=== PATIENT | female | born 1985 | race Caucasian/White ===

== ENCOUNTER 2019-10-12 17:52 | Emergency (ER) | payer BC, SELFPAY ==
[2019-10-12 18:02] VITALS: BP 148/95; PULSE 88; RESP 17; TEMP 36.8; O2SAT 98; BMI 35.6
--- NOTE | 2019-10-12 18:07 | ED_ITS ---
HPI - Headache General: Chief Complaint: Headache Stated Complaint: lamb Time Seen by Provider: 10/12/19 18:00 History of Present Illness: HPI Narrative: Patient is a 34-year-old female who comes to the ED with a headache. Patient has a past medical history of migraine but states that this headache is not like her typical migraine. Severe headache started this morning when she woke up. She describes it as retro-orbital of the right eye and involves the whole right side of her head. She described the pain is like an intense pressure building up on the right side of her head. She rates this headache a 10 out of 10. She took Motrin today and it did not provide any relief. She also tried sleeping today and applying ice pack on the right side of her head and both have not helped the headache. She denies any photophobia, nausea, vomiting, head trauma, numbness/tingling to extremities, weakness to extremities or any other neurological symptoms. MD elicited complaint: headache Associated symptoms: Deny chest pain, fever(s), nausea, photophobia, rash or vomiting Review of Systems Const: Denies: fever, chills or fatigue Eyes: Denies: change in vision or eye discomfort ENMT: Denies: throat pain, painful swallowing, nasal discharge or nasal congestion Card: Denies: chest pain, palpitations, edema, swelling of feet/ankles, shortness of breath on exertion or shortness of breath when lying down Resp: Denies: shortness of breath, productive cough or non-productive cough GI: Denies: abdominal pain, nausea, vomiting, diarrhea, constipation or blood in stool : Denies: flank pain, painful urination or blood in urine Musc: Denies: neck pain, back pain or extremity swelling Skin/Breast: Denies: rash or new lesion Neuro: Reports: headache; Denies: numbness in extremities or weakness in extremities PFS ED PFSH: Social History Smoking and tobacco status: current every day smoker Physical Exam Const: COMMON NORMALS: oriented x3 and alert GENERAL APPEARANCE: cooperative and ill appearing (pt was crying and appeared to be in discomfort due to headache) HENMT: COMMON NORMALS: normocephalic HEAD & SCALP: normocephalic MOUTH: oral and palatal mucosa normal THROAT: posterior oropharynx normal and uvula midline Eye: COMMON NORMALS: PERRL, EOMs intact bilaterally and normal visual garland by confrontation PUPIL: Yes PERRL DIRECT OPHTHALMOSCOPY: No photophobia Neck/C-Spine: COMMON NORMALS: supple GENERAL: Yes normal visual inspection Resp: COMMON NORMALS: normal respiratory effort, no retractions, no use of accessory muscles and clear to auscultation bilaterally EFFORT & INSPECTION: Yes able to speak in complete sentences and No respiratory distress AUSCULTATION: clear to auscultation bilaterally Cardio: COMMON NORMALS: regular rate, regular rhythm, S1 normal heart sound, S2 normal heart sound, no gallops, no clicks, no murmurs and peripheral pulses 2+ throughout RATE: regular rate RHYTHM: regular rhythm HEART SOUNDS: S1 normal and S2 normal PERIPHERAL PULSES: pulses 2+ throughout GI: COMMON NORMALS: normal to inspection, nondistended, normoactive bowel sounds, soft to palpation, non-tender and no masses PALPATION: Yes soft : COMMON NORMALS: Yes no CVA tenderness BLADDER/KIDNEY EXAM: Yes no CVA tenderness Back/Pelvis: COMMON NORMALS: no CVA tenderness Extremity: COMMON NORMALS: normal to inspection, normal capillary refill and no pedal edema Neuro: COMMON NORMALS: oriented x3, CN's II-XII intact bilaterally, moves all extremities, no focal motor deficits and no sensory deficits noted SENSORIUM/ORIENTATION: Yes alert SENSORY EXAM: Yes extremities (intact) MOTOR EXAM: strength 5/5 throughout Skin: COMMON NORMALS: no rashes or lesions noted GENERAL SKIN EXAM: no rashes or lesions noted and dry skin Course Reevaluation(s): Reevaluation #1: After the Toradol patient's headache is rated at a 1 out of 10. Time: 20:03 Vital Signs: Vital signs: Vital Signs Temperature 98.3 F 10/12/19 18:02 Pulse Rate 84 10/12/19 20:28 Respiratory Rate 16 10/12/19 20:28 Blood Pressure 124/83 10/12/19 20:28 Pulse Oximetry 95 10/12/19 20:28 MDM - Headache MDM Narrative: Medical decision making narrative: Patient is a 34-year-old female comes to the ED with a headache. Physical exam and neurological exam were all normal. Head CT was normal and showed no acute intracranial abnormalities. While here in the ED patient was given IV fluids, Benadryl, Reglan, Decadron and sumatriptan SQ. Patient still was not feeling better after sumatriptan dose. Patient was then given an IV dose of Toradol and her headache improved significantly and she was ready for discharge. Patient told to follow- up with PCP in 7 days for reevaluation. I told her to take Tylenol or ibuprofen for any future headaches. Patient understood and agreed with plan. Imaging Data^: CT Head: Attestation: I personally reviewed and interpreted this imaging study as follows: Radiologist's impression: [address] [place] [address] CT Scan Report Signed Patient: Trupti Terrazas Unit #: [id number] : 1985 Age/Sex: 34 / F ADM Date: 10/12/19 Loc: ER Room/Bed: Attending Dr: Ordering Provider/Ordering MD: Julian Haas Date of Service: 10/12/19 Procedure(s): CT head wo con* [id number] Accession Number(s): [id number] Report Number: [id number] PROCEDURE INFORMATION: Exam: CT Head Without Contrast Exam date and time: 10/12/2019 6:19 PM Age: 34 years old Clinical indication: Pain; Headache; Migraine; Additional info: Migraine for over 72 hours and no history of migraines TECHNIQUE: Imaging protocol: Computed tomography of the head without contrast. Total DLP: 783.04 mGy-cm Radiation optimization: All CT scans at this facility use at least one of these dose optimization techniques: automated exposure control; mA and/or kV adjustment per patient size (includes targeted exams where dose is matched to clinical indication); or iterative reconstruction. COMPARISON: No relevant prior studies available. FINDINGS: Brain: Normal. No hemorrhage. Unremarkable white matter. No mass effect. Ventricles: Normal. No ventriculomegaly. Bones/joints: Unremarkable. No acute fracture. Sinuses: Visualized sinuses are unremarkable. No fluid levels. Mastoid air cells: Visualized mastoid air cells are well aerated. Soft tissues: Unremarkable. CT/CT head wo con* [id number] IMPRESSION: No acute intracranial abnormality. Radiation Dose CTDIVOL = (mGy): DLP = 783.04 (mGy-cm) Dictated By: Gary Roman MD Signed By: Gary Roman MD Signed Date/Time: 10/12/191838 DD/ 36 Discharge Plan Discharge Patient Disposition: Home, Self-Care Clinical Impression: Headache Qualifiers: Headache type: unspecified Headache chronicity pattern: acute headache Intractability: not intractable Qualified Code(s): R51 - Headache Condition: Stable Prescriptions: No Action furosemide 40 mg tablet 40 mg PO DAILY RF: 0 clopidogrel 75 mg tablet 75 mg PO DAILY RF: 0 aspirin 81 mg Tablet,Delayed Release (Dr/Ec) 81 mg PO DAILY RF: 0 carvedilol 3.125 mg tablet 3.125 mg PO BID RF: 0 pantoprazole 40 mg tablet,delayed release (DR/EC) 40 mg PO DAILY RF: 0 metformin 500 mg tablet extended release 24 hr 500 mg PO DAILY RF: 0 rosuvastatin 20 mg tablet 220 mg PO DAILY RF: 0 Discharge Orders: Discharge Order (Routine); Ordered 10/12/19 Ordered By: Julian Haas Referrals: Rand Schreiber FNP [Primary Care Provider] - Discharge Diet: Regular Discharge Activity: Resume usual activity Patient Instructions: Acute Headache (ED) Activity Restrictions/Additional Instructions: Follow-up with your PCP in 7 to 10 days for reevaluation. Go home and rest. Take Tylenol or ibuprofen for any future headaches. You can return to the ED if you are having any acute migraines or if you start having any headaches with neurological symptoms. Discharge Date/Time: 10/12/19 20:30 Coding Level of Care Code ED [employer]wste[employer] Exam Comprehensive
[2019-10-12 18:09] VITALS: BP 148/95; PULSE 79; RESP 18; O2SAT 97
[2019-10-12] MEDS: sodium chloride 0.9% 1,000 ML 999 ML IV (18:36)
[2019-10-12] MEDS: SUMAtriptan 6 mg/0.5 mL SDV SUBCUT (18:37)
[2019-10-12] MEDS: metoclopramide 5 mg/mL SDV 2 mL 10 MG IVP (18:38)
[2019-10-12] MEDS: diphenhydrAMINE 50 mg/mL SDV 1mL 25 MG IVP (18:38)
[2019-10-12] MEDS: dexamethasone 10 mg/mL INJ IVP (18:38)
[2019-10-12] MEDS: ketorolac 30 mg/mL INJ IVP (19:50)
[2019-10-12 20:28] VITALS: BP 124/83; PULSE 84; RESP 16; O2SAT 95
== END 2019-10-12 20:30 | disposition home or self-care (01) ==
PROVIDERS: Emergency Provider Physician Assistant; Family Provider Nurse Practitioner; PCP Nurse Practitioner
DX: R51 Headache (principal); Z79.82 Long term (current) use of aspirin; Z79.84 Long term (current) use of oral hypoglycemic drugs; Z79.02 Long term (current) use of antithrombotics/antiplatelets; F17.210 Nicotine dependence, cigarettes, uncomplicated
CPT/HCPCS: 12345; 70450; 96361; 96372; 96374; 96375; 99283; 99284; J1100; J1200; J1885; J2765; J3030; J7030

== ENCOUNTER 2020-11-11 07:13 | Emergency (ER) | payer BC, SELFPAY ==
[2020-11-11 07:23] VITALS: TEMP 36.9; BMI 36.6
--- NOTE | 2020-11-11 07:28 | USR_ITS ---
NOTE: Report was unsigned for reason: Order was edited. Original Signature date and time was: 11/11/20 @ 0900 PROCEDURE INFORMATION: Exam: US Nonobstetric Pelvis; Complete Exam date and time: 11/11/2020 7:49 AM Age: 35 years old Clinical indication: Pelvic pain TECHNIQUE: Imaging protocol: Transabdominal pelvic nonobstetric ultrasound. Complete exam. Real time ultrasound with image documentation. COMPARISON: No relevant prior studies available. FINDINGS: Uterus/cervix: Uterus is normal. The uterus measures 5.8 x 2.7 x 3.7 cm. Endometrial stripe measures 9 mm in thickness. There are a few tiny endometrial cysts consistent with mild cystic hyperplasia. No uterine masses. Right adnexa: Ovary is normal. No mass. Normal blood flow. Left adnexa: Ovary is normal. No mass. Normal blood flow. Intraperitoneal space: No intraperitoneal fluid. Urinary bladder: Normal. [facility] US/US transvaginal [id number] IMPRESSION: No acute findings.
--- NOTE | 2020-11-11 07:29 | W.ED.ABDPA2 ---
HPI - Abdominal Pain General: Chief Complaint: Abdominal Pain Stated Complaint: left flank pain (sharp); nausea Time Seen by Provider: 11/11/20 07:18 Source: patient and old records reviewed History of Present Illness: HPI narrative: This patient is a 35-year-old female who presents to the emergency department has a history of polycystic ovarian disease complain of significant left lower quadrant abdominal pain that has been increasing over the past couple of days so much so that now she can hardly stand up straight and significant pain patient is tearful in the bed. Patient states she never had anything like this before. Patient states she is a history of irregular periods and has went over a year without a period in the past. Patient states she is sexually active. Will do medical evaluation treat as needed. Patient denies nausea vomiting diarrhea. Denies history of kidney stones. MD elicited complaint: abdominal pain Pertinent past history: other Onset (ago): day(s) Pain Consistency: constant Location: LLQ Severity: moderate Associated Symptoms: Denies chills, dysuria, fever(s), nausea and vomiting Review of Systems General: Reports: 10 or more systems reviewed and unremarkable except in HPI and below Const: Denies: fever(s), chills, body aches or fatigue Eyes: Denies: change in vision or blurry vision ENMT: Denies: throat pain, hoarseness or mouth pain Card: Denies: chest pain, palpitations, irregular heart rhythm, edema, swelling of feet/ankles or lightheadedness Resp: Denies: dyspnea, productive cough, non-productive cough, wheezing or pain on inspiration GI: Reports: abdominal pain; Denies: nausea or vomiting : Denies: difficulty voiding, dysuria, urinary frequency, urinary urgency or urinary hesitancy Musc: Denies: neck pain, back pain, extremity pain, extremity swelling, joint pain, joint swelling, joint redness, joint warmth or limited range of motion Skin/Breast: Denies: rash, pruritus, erythema or skin tenderness Neuro: Denies: headache(s), numbness in extremities or weakness in extremities Psych: Denies: anxiety or depression PFS ED PFSH: Social History Smoking and tobacco status: current every day smoker Physical Exam Const: COMMON NORMALS: no acute distress, average body habitus, patient oriented x3, no limitations, healthy appearing, alert and well nourished HENMT: COMMON NORMALS: normocephalic, atraumatic, external ears normal, EAC's normal, TM's normal bilaterally, Normal external nose present and Normal nasal mucous membranes and turbinates present HEAD & SCALP: normocephalic and atraumatic NOSE: Normal external nose present and Normal nasal mucous membranes and turbinates present EXTERNAL EAR: Yes external ears normal EXTERNAL AUDITORY CANAL: EAC's normal TYMPANIC MEMBRANE: TM's normal bilaterally Neck/C-Spine: COMMON NORMALS: full ROM, no lymphadenopathy, supple, no meningeal signs, no JVD, Thyroid normal and No carotid bruits THYROID: Thyroid normal Chest: COMMONS NORMALS: normal inspection of the chest, normal palpation of entire chest wall, normal inspection of the breasts and normal palpation of the breasts Breast/axilla inspection: Yes normal inspection of the breasts BREAST/AXILLA PALPATION: Yes normal palpation of the breasts Resp: COMMON NORMALS: normal respiratory effort, No retractions, No use of accessory muscles, clear to auscultation bilaterally and percussion normal AUSCULTATION: clear to auscultation bilaterally PERCUSSION: percussion normal Cardio: COMMON NORMALS: no JVD, regular rate, regular rhythm, S1 normal heart sound present, S2 normal heart sound present, No gallops present (Cardio), No clicks present (Cardio), No murmurs present (Cardio), No rub (Cardio) and Peripheral pulses 2+ throughout RATE: regular rate RHYTHM: regular rhythm HEART SOUNDS: S1 normal heart sound present and S2 normal heart sound present PERIPHERAL PULSES: Peripheral pulses 2+ throughout GI: COMMON NORMALS: Normal to inspection, nondistended, normoactive bowel sounds present, Soft to palpation, No hepatosplenomegaly present, no masses and no bruits PALPATION: Yes Soft to palpation, Yes Tenderness to palpation present (GI), Yes Guarding due to palpation present (GI) and Yes No hepatosplenomegaly present : COMMON NORMALS: Yes no CVA tenderness, Yes normal external appearance, Yes normal appearance of the vagina, Yes normal appearance of the cervix, Yes normal bimanual exam, Yes No adnexal tenderness and Yes no masses BLADDER/KIDNEY EXAM: Yes no CVA tenderness BIMANUAL EXAM - VAGINA & UTERUS: Yes normal bimanual exam Back/Pelvis: COMMON NORMALS: no CVA tenderness, thoracic and lumbar spine normal to inspection, no thoracic nor lumbar tenderness, thoraco-lumbar ROM normal and straight leg raise negative bilaterally Extremity: COMMON NORMALS: normal to inspection, full ROM, capillary refill normal, no joint enlargement, no clubbing, cyanosis or edema, no calf tenderness and no pedal edema Neuro: COMMON NORMALS: patient oriented x3 SENSORIUM/ORIENTATION: Yes alert MENINGEAL SIGNS: Yes no meningeal signs Course Reevaluation(s): Reevaluation #1: Negative evaluation in the emergency room for any acute findings. However patient does complain of continued hip pain. Patient has had a CT scan and ultrasound that is negative for any acute findings. Negative laboratory evaluations. Patient given the following instructions Alternate heat and ice. Take pain medications as instructed. Follow-up with your primary care physician or orthopedics as needed in 2 to 5 days if not improved. You may need further imaging via MRI of the left hip joint if pain continues. Time: 09:43 Vital Signs: Vital signs: Vital Signs Temperature 98.4 F 11/11/20 07:23 Pulse Rate 78 11/11/20 08:55 Respiratory Rate 18 11/11/20 08:55 Blood Pressure 161/108 11/11/20 08:55 Pulse Oximetry 99 11/11/20 08:55 MDM - Abdominal Pain MDM Narrative: Medical decision making narrative: This patient is a 35-year-old female who presents to the emergency department has a history of polycystic ovarian disease complain of significant left lower quadrant abdominal pain that has been increasing over the past couple of days so much so that now she can hardly stand up straight and significant pain patient is tearful in the bed. Patient states she never had anything like this before. Patient states she is a history of irregular periods and has went over a year without a period in the past. Patient states she is sexually active. Will do medical evaluation treat as needed. Patient denies nausea vomiting diarrhea. Denies history of kidney stones. IMPRESSION: 1. Nonobstructive left nephrolithiasis. Negative evaluation otherwise in the emergency department. No findings to his explain the patient's complaints of pain. Patient has movement of the left hip joint when she comes to the midline but no movement laterally or up or down. Peers to be musculoskeletal pain. Patient will alternate with heat and ice will be given pain medication to help as instructed to follow-up with her primary care physician. Differential Diagnosis: Differential diagnosis abdominal pain: Likely abdominal pain, acute appendicitis, calculus of kidney and endometriosis Medical Records: Attestation: I reviewed the patient's medical records. Lab Data: Attestation: I reviewed the patient's lab results. Labs: Lab Results 11/11/20 11/11/20 11/11/20 Range/Units 07:21 07:21 07:48 WBC 8.9 (4.0-10.0) 10^3/ uL RBC 5.50 H (4.1-5.3) 10^6/u L Hgb 16.2 H (11.5-15.3) g/dL Hct 48.3 H (37.0-47.0) % MCV 87.8 (81-99) fL MCH 29.5 (28.0-34.0) pg MCHC 33.5 (30.0-36.0) g/dL RDW 13.9 (12.1-15.1) % Plt Count 563 H (130-400) 10^3/c mm MPV 10.5 H (7.4-10.4) fL Neut % (Auto) 69.1 % Lymph % (Auto) 20.3 % [place] % (Auto) 6.1 % Eos % (Auto) 3.2 % Baso % (Auto) 1.0 % Neut # (Auto) 6.12 (1.8-7.7) 10^3/u L Lymph # (Auto) 1.8 (0.8-4.8) 10^3/u L [place] # (Auto) 0.5 (0.2-0.9) 10^3/u L Eos # (Auto) 0.3 (0.0-0.8) 10^3/u L Baso # (Auto) 0.1 (0.0-0.1) 10^3/u L Nucleated RBC % (a uto) 0 % Nucleated RBCs # 0.0 /100WBC Sodium (136-145) mmol/L Potassium (3.5-5.1) mmol/L Chloride (98-107) mmol/L Carbon Dioxide (22-29) mmol/L Anion Gap (5-19) BUN (6-20) mg/dL Creatinine (0.5-0.9) mg/dL GFR Calculation (90-130) mL/min Glucose (65-115) mg/dL Calculated Osmolal ity (285-295) mOsm/k g Calcium (8.5-10.5) mg/dL Total Bilirubin (0.15-1.2) mg/dL AST (0-32) U/L ALT (0-33) U/L Alkaline Phosphata se (35-105) IU/L Total Protein (6.6-8.7) g/dL Albumin (3.5-5.2) g/dL Globulin (1.3-4.6) g/dL HCG, Qual Negative (Negative) Urine Color Yellow (Yellow) Urine Appearance Clear (CLEAR) Urine pH 5 (5-7) Ur Specific Gravit y 1.020 (1.005-1.030) Urine Protein Neg (Negative) Urine Glucose (UA) Norm (Normal) Urine Ketones Negative (Negative) Urine Blood Neg (Negative) Urine Nitrate Negative (Negative) Urine Bilirubin Neg (Negative) Urine Urobilinogen Norm (Negative) mg/dL Ur Leukocyte Anupama ase Negative (Negative) 11/11/20 Range/Units 07:48 WBC (4.0-10.0) 10^3/ uL RBC (4.1-5.3) 10^6/u L Hgb (11.5-15.3) g/dL Hct (37.0-47.0) % MCV (81-99) fL MCH (28.0-34.0) pg MCHC (30.0-36.0) g/dL RDW (12.1-15.1) % Plt Count (130-400) 10^3/c mm MPV (7.4-10.4) fL Neut % (Auto) % Lymph % (Auto) % [place] % (Auto) % Eos % (Auto) % Baso % (Auto) % Neut # (Auto) (1.8-7.7) 10^3/u L Lymph # (Auto) (0.8-4.8) 10^3/u L [place] # (Auto) (0.2-0.9) 10^3/u L Eos # (Auto) (0.0-0.8) 10^3/u L Baso # (Auto) (0.0-0.1) 10^3/u L Nucleated RBC % (a uto) % Nucleated RBCs # /100WBC Sodium 137 (136-145) mmol/L Potassium 4.2 (3.5-5.1) mmol/L Chloride 103 (98-107) mmol/L Carbon Dioxide 23 (22-29) mmol/L Anion Gap 15.2 (5-19) BUN 9 (6-20) mg/dL Creatinine 0.8 (0.5-0.9) mg/dL GFR Calculation 82.1 L (90-130) mL/min Glucose 104 (65-115) mg/dL Calculated Osmolal ity 283 L (285-295) mOsm/k g Calcium 8.7 (8.5-10.5) mg/dL Total Bilirubin 0.3 (0.15-1.2) mg/dL AST 33 H (0-32) U/L ALT 47 H (0-33) U/L Alkaline Phosphata se 120 H (35-105) IU/L Total Protein 6.9 (6.6-8.7) g/dL Albumin 4.4 (3.5-5.2) g/dL Globulin 2.5 (1.3-4.6) g/dL HCG, Qual (Negative) Urine Color (Yellow) Urine Appearance (CLEAR) Urine pH (5-7) Ur Specific Gravit y (1.005-1.030) Urine Protein (Negative) Urine Glucose (UA) (Normal) Urine Ketones (Negative) Urine Blood (Negative) Urine Nitrate (Negative) Urine Bilirubin (Negative) Urine Urobilinogen (Negative) mg/dL Ur Leukocyte Anupama ase (Negative) Imaging Data ^: US: Attestation: I personally reviewed and interpreted this imaging study as follows: Radiologist's impression: Negative for any acute findings. Other CT: Attestation: I personally reviewed and interpreted this imaging study as follows: Radiologist's impression: IMPRESSION: 1. Nonobstructive left nephrolithiasis. Negative for any acute findings Discharge Plan Discharge Patient Disposition: Home Clinical Impression: Nonspecific abdominal pain Condition: Stable Prescriptions: New hydrocodone-acetaminophen 5-325 mg tablet 1 tab PO Q6H PRN (Reason: pain) Qty: 7 RF: 0 diclofenac sodium 75 mg tablet,delayed release (DR/EC) 75 mg PO BID PRN (Reason: pain) Qty: 20 RF: 0 No Action carvedilol 3.125 mg tablet 3.125 mg PO BID Qty: 180 RF: 3 furosemide 40 mg tablet 40 mg PO DAILY Qty: 30 RF: 3 clopidogrel 75 mg tablet 75 mg PO DAILY Qty: 60 RF: 1 aspirin 81 mg Tablet,Delayed Release (Dr/Ec) 81 mg PO DAILY RF: 0 pantoprazole 40 mg tablet,delayed release (DR/EC) 40 mg PO DAILY RF: 0 rosuvastatin 20 mg tablet 20 mg PO DAILY RF: 0 Discharge Orders: Discharge ED (Routine); Ordered 11/11/20 Ordered By: Zbigniew King Discharge Diet: Usual diet Discharge Activity: Increase activity as tolerated Patient Instructions: Abdominal Pain (ED), Opioid Safety Activity Restrictions/Additional Instructions: Alternate heat and ice. Take pain medications as instructed. Follow-up with your primary care physician or orthopedics as needed in 2 to 5 days if not improved. You may need further imaging via MRI of the left hip joint if pain continues. Coding Level of Care Code ED [employer]el [employer] for [employer]wd Exam Comprehensive
[2020-11-11 07:44] LABS: Add Urine Microscopic? NO; Charge for UA Resulting for Rev
[2020-11-11 07:52] LABS: HCG Qualitative Urine. Negative (Negative)
[2020-11-11 07:59] LABS: Bilirubin Urine Neg (Negative); Blood Urine Neg (Negative); Glucose Urine UA Norm (Normal); Ketones Urine Negative (Negative); Leukocyte Esterase Urine Negative (Negative); Nitrate Urine Negative (Negative); Protein Urine Neg (Negative); Urine Appearance Clear (CLEAR); Urine Color Yellow (Yellow); Urobilinogen Urine Norm (Negative); pH Urine 5 (5-7)
[2020-11-11 08:02] LABS: Basophils # 0.1 10^3/uL (0.0-0.1); Eosinophils # 0.3 10^3/uL (0.0-0.8); Eosinophils % 3.2 %; Hematocrit 48.3 % (37.0-47.0); Hemoglobin 16.2 g/dL (11.5-15.3); Lymphocytes # 1.8 10^3/uL (0.8-4.8); Lymphocytes % 20.3 %; Mean Corpuscular HGB Conc 33.5 g/dL (30.0-36.0); Mean Corpuscular Hemoglobin 29.5 pg (28.0-34.0); Mean Corpuscular Volume 87.8 fL (81-99); Mean Platelet Volume 10.5 fL (7.4-10.4); Monocytes # 0.5 10^3/uL (0.2-0.9); Monocytes % 6.1 %; Neutrophils # 6.12 10^3/uL (1.8-7.7); Neutrophils % 69.1 %; Nucleated Red Blood Cells % 0 %; Platelet Count 563 10^3/cmm (130-400); Red Cell Distribution Width 13.9 % (12.1-15.1); White Blood Count 8.9 10^3/uL (4.0-10.0)
[2020-11-11 08:21] LABS: Alanine Aminotransferase 47 U/L (0-33); Albumin Level 4.4 g/dL (3.5-5.2); Alkaline Phosphatase 120 IU/L (35-105); Anion Gap 15.2 (5-19); Aspartate Amino Transferase 33 U/L (0-32); Blood Urea Nitrogen 9 mg/dL (6-20); Calcium 8.7 mg/dL (8.5-10.5); Carbon Dioxide 23 mmol/L (22-29); Chloride 103 mmol/L (98-107); Globulin 2.5 g/dL (1.3-4.6); Glomerular Filtration Rate 82.1 mL/min (90-130); Glucose 104 mg/dL (65-115); Osmolality Calculated 283 mOsm/kg (285-295); Potassium 4.2 mmol/L (3.5-5.1); Sodium 137 mmol/L (136-145); Total Bilirubin 0.3 mg/dL (0.15-1.2); Total Protein 6.9 g/dL (6.6-8.7)
[2020-11-11] MEDS: ketorolac 30 mg/mL INJ IM (08:23)
[2020-11-11] MEDS: sodium chloride 0.9% 1,000 ML 999 ML IV (08:25)
[2020-11-11 08:55] VITALS: BP 161/108; PULSE 78; RESP 18; O2SAT 99
--- NOTE | 2020-11-11 09:06 | CTR_ITS ---
PROCEDURE INFORMATION: Exam: CT Abdomen And Pelvis Without Contrast Exam date and time: 11/11/2020 9:15 AM Age: 35 years old Clinical indication: Abdominal pain; Flank; Left; Prior surgery; Surgery type: Gb; Additional info: Stone protocol TECHNIQUE: Imaging protocol: Computed tomography of the abdomen and pelvis without contrast. Radiation optimization: All CT scans at this facility use at least one of these dose optimization techniques: automated exposure control; mA and/or kV adjustment per patient size (includes targeted exams where dose is matched to clinical indication); or iterative reconstruction. COMPARISON: US pelvic with transvaginal 11/11/2020 7:55 AM RADIATION DOSE METRICS: Total DLP (mGy-cm): 1848.71 FINDINGS: Liver: Normal. No mass. Gallbladder and bile ducts: Cholecystectomy. Normal bile ducts. Pancreas: Normal. No ductal dilation. Spleen: Splenomegaly with a diameter of 16.5 cm. . Adrenal glands: Normal. No mass. Kidneys and ureters: There is a 3 mm nonobstructing calcification in the lower pole of the left kidney. There is no hydronephrosis. A 1 cm cyst is present in the lower pole of the right kidney. There are no ureteral calculi. Stomach and bowel: Unremarkable. No obstruction. No mucosal thickening. Appendix: The appendix is identified and is normal. Intraperitoneal space: Unremarkable. No free air. No significant fluid collection. Vasculature: Unremarkable. No abdominal aortic aneurysm. Lymph nodes: Unremarkable. No enlarged lymph nodes. Urinary bladder: Unremarkable as visualized. Reproductive: Unremarkable as visualized. Bones/joints: Unremarkable. No acute fracture. Soft tissues: Unremarkable. CT/CT kidney stone [id number] IMPRESSION: 1. Nonobstructive left nephrolithiasis. 2. Splenomegaly. COMMENTS: Consistent with the [employer]'s Incidental Findings Committee white paper (J Am Madiha Radiol 2018): Any incidental renal lesion less than 1 cm or classified as too small to characterize, or any incidental cystic renal lesion characterized as simple-appearing, is likely benign. No follow-up imaging is recommended for these lesions per consensus recommendations based on imaging criteria. Radiation Dose CTDIVOL = (mGy): DLP = 1848.71 (mGy-cm)
[2020-11-11 11:31] VITALS: BP 161/108; PULSE 92; RESP 18; O2SAT 97
== END 2020-11-11 10:30 | disposition home or self-care (01) ==
PROVIDERS: Emergency Provider Emergency Medicine
DX: R10.9 Unspecified abdominal pain (principal); Z79.82 Long term (current) use of aspirin; Z79.02 Long term (current) use of antithrombotics/antiplatelets; F17.210 Nicotine dependence, cigarettes, uncomplicated
CPT/HCPCS: 74176; 76830; 76856; 80053; 81003; 81025; 85025; 96360; 96372; 99283; J1885; J7030

== ENCOUNTER 2020-12-06 12:16 | Outpatient (CLI) | payer BC, SELFPAY ==
[2020-12-06 12:55] LABS: Basophils # 0.1 10^3/uL (0.0-0.1); Basophils % 0.8 %; Eosinophils # 0.3 10^3/uL (0.0-0.8); Eosinophils % 2.8 %; Hemoglobin 16.7 g/dL (11.5-15.3); Lymphocytes # 1.7 10^3/uL (0.8-4.8); Lymphocytes % 18.4 %; Mean Corpuscular HGB Conc 33.4 g/dL (30.0-36.0); Mean Corpuscular Hemoglobin 29.1 pg (28.0-34.0); Mean Corpuscular Volume 87.1 fL (81-99); Mean Platelet Volume 10.7 fL (7.4-10.4); Monocytes # 0.5 10^3/uL (0.2-0.9); Monocytes % 5.8 %; Neutrophils % 71.8 %; Nucleated Red Blood Cells % 0 %; Platelet Count 596 10^3/cmm (130-400); Red Blood Count 5.74 10^6/uL (4.1-5.3); Red Cell Distribution Width 13.6 % (12.1-15.1); White Blood Count 9.1 10^3/uL (4.0-10.0)
--- NOTE | 2020-12-06 17:08 | ONC CON_ITS ---
Dr. Suazo New Patient Note Patient: Trupti Terrazas Unit #: [id number]: 1985 Dicatated By: Nancy Suazo M.D.Date of Visit: Dec 06, 2020 Onc MED New Patient/Consult Referring Physician: BENNETT Gotti History of Present Illness: Ms. Trupti Terrazas, is a 35-year-old female with a history of [place] at age 30, status post stent in LAD, as per patient in April 2019 she was at [facility] at that time on lab work-up showed white blood count 10.4 hemoglobin 15.6 hematocrit 45.4 platelets 751,000 but patient was not aware of this abnormality until admitted 2020 when her follow-up lab work-up done on November 16, 2020 showed white blood count 8.2 hemoglobin 16.2 hematocrit 49.5 normal being 36-46 and platelets 548,000, patient was referred to hematology clinic for evaluation, patient denies any history of headaches blurred vision double vision, denies any paresthesia, but complaining of generalized weakness and fatigue and excessive sleep during daytime and snoring at night especially when she is tired. Patient denies any history of stroke but as mentioned above she has history of coronary artery disease and AMI, status post LAD stenting at age 30. Patient is a heavy smoker she used to smoke about pack per day since age 21 and then about 6 months ago she cut down smoking to 2 to 3 packs/week patient is on aspirin. Patient denies any night sweats, denies any hot flashes, denies any recurrent fever denies any weight loss denies any weight gain, denies any peripheral lymphadenopathy or abdominal fullness Past Medical History: Ms. Terrazas's medical history consists of coronary artery disease and hypertension. Past Surgical History: Ms. Terrazas's surgical/procedural history consists of cholecystectomy in 2015 and LAD Coronary Artery Stent Placement in 2015. Medications: Aspirin 1 Tablet (of 81 mg) Tablet, chewable Oral daily, Carvedilol 1 Tablet (of 3.125 mg) Oral b.i.d., Clopidogrel Bisulfate 1 Tablet (of 75 mg) Oral daily, Crestor 1 Tablet (of 20 mg) Oral daily, Furosemide 1 Tablet (of 40 mg) Oral daily Allergies: No Known Allergies. Social History: Ms. Terrazas is . She is a daily smoker who has smoked 0.5 packs/day for 15 years. Family History: There is no documented family history. Review Of Symptoms: Review of Systems is not available for this patient. Vital Signs: Performed on Dec 06, 2020 14:25: 0, 38.57 (HIGH), 2.11 sq.m, 65 in, 97 %, 95 /min, 17 /min, 125/88 mm(hg), 97.5 F (LOW), and 231.8 lbs (HIGH). Performance Status: 0 - Fully active, able to carry on all predisease activities without restrictions. (ECOG) Physical Examination: ENMT - No mouth sores, no thrush, no jaundice, Respiratory - Lungs are clear to auscultation, Cardiovascular - Regular rate and rhythm of heart, Abdomen - Soft, bowel sounds present, Extremities - No visible edema or rash. Lab/Imaging: Most recent lab results are not available for this patient. Impression: Polycythemia, reactive versus primary, most likely due to chronic smoking or probably sleep apnea other possibility could be polycythemia vera Mild thrombocytosis could be inflammatory marker or mild blood loss, patient had episode of dark-colored stools in recent past or myeloproliferative disorder History of AMI/LAD stenting at age 30 Heavy smoking since age 21 Generalized weakness and fatigue, probably due to underlying sleep apnea Plan: Discussed with patient regarding her labs white blood count 9.1 hemoglobin 16.7 hematocrit 50 normal being 37-47 platelet count 596,000 with normal differential Clinically, patient is doing well with no new signs symptoms her follow-up lab work-up shows persistent mild erythrocytosis as well as thrombocytosis, etiology unclear but could be secondary to chronic smoking/considering her weight underlying sleep apnea cannot be ruled out other possibility could be myeloproliferative disorder as patient has mild thrombocytosis which again could be as inflammatory marker or due to chronic GI blood loss as patient had episode of dark-colored stools At this point we will check a erythropoietin level, abdominal sonogram to check spleen size, also check pulse ox on exertion, JAK2 mutation, Patient was advised to continue with aspirin and also maintain hydration and then she will return to clinic 2 weeks with CBC and iron studies if above-mentioned work-up remained inconclusive, will consider sleep study Patient was advised to quit smoking and was offered any assistance she may need, patient was also advised to maintain good hydration Signed By: Nancy Suazo M.D. <<Signature on File>>
[2020-12-07 10:13] LABS: Erythropoietin 3.1 mIU/mL (2.6-18.5)
[2020-12-12 10:43] LABS: JAK2 V617 Block Specimen ID NG; JAK2 V617 Clinical Indication NG; JAK2 V617 Mutation DETECTED (NOT DETECTED); JAK2 V617 Specimen Source LAV
== END 2020-12-06 12:17 | disposition home or self-care (01) ==
PROVIDERS: PCP Registered Nurse; Visit Provider Internal Medicine Hematology & Oncology
DX: D45 Polycythemia vera (principal); F17.210 Nicotine dependence, cigarettes, uncomplicated; G47.33 Obstructive sleep apnea (adult) (pediatric); D72.820 Lymphocytosis (symptomatic); I25.2 Old myocardial infarction; R53.1 Weakness; R53.83 Other fatigue; Z79.899 Other long term (current) drug therapy
CPT/HCPCS: 81270; 82668; 85025; 99204

== ENCOUNTER 2021-05-02 15:41 | Outpatient (CLI) | payer BC, SELFPAY ==
[2021-05-02 16:22] LABS: Basophils # 0.1 10^3/uL (0.0-0.1); Eosinophils # 0.2 10^3/uL (0.0-0.8); Eosinophils % 2.5 %; Hematocrit 46.6 % (37.0-47.0); Hemoglobin 15.9 g/dL (11.5-15.3); Lymphocytes # 1.5 10^3/uL (0.8-4.8); Lymphocytes % 18.7 %; Mean Corpuscular HGB Conc 34.1 g/dL (30.0-36.0); Mean Corpuscular Hemoglobin 30.5 pg (28.0-34.0); Mean Corpuscular Volume 89.4 fl (81-99); Mean Platelet Volume 10.7 fL (7.4-10.4); Monocytes # 0.5 10^3/uL (0.2-0.9); Monocytes % 5.7 %; Neutrophils # 5.76 10^3/uL (1.8-7.7); Neutrophils % 71.7 %; Nucleated Red Blood Cells % 0 %; Platelet Count 574 10^3/cmm (130-400); Red Blood Count 5.21 10^6/uL (4.1-5.3); Red Cell Distribution Width 13.1 % (12.1-15.1)
== END 2021-05-02 15:42 | disposition home or self-care (01) ==
LOC: ONCMED 15:45
PROVIDERS: PCP Registered Nurse; Visit Provider Internal Medicine Hematology & Oncology
DX: D75.1 Secondary polycythemia (principal)
CPT/HCPCS: 36415; 85025

== ENCOUNTER 2021-05-03 06:23 | Outpatient (CLI) | payer BC, SELFPAY ==
[2021-05-03] MEDS: sodium chloride 0.9% 250 ML 999 ML IV (11:00)
--- NOTE | 2021-05-05 18:46 | ONC FU_ITS ---
Dr. Suazo follow up note Patient: Trupti Terrazas Unit #: [id number]: 1985 Dicatated By: Nancy Suazo M.D.Date of Visit:May 03, 2021 Onc Med Follow-up/Prog Note History of Present Illness: Ms. Trupti Terrazas, is a 36-year-old female with a history of [place] at age 30, status post stent in LAD, as per patient in April 2019 she was at [facility] at that time on lab work-up showed white blood count 10.4 hemoglobin 15.6 hematocrit 45.4 platelets 751,000 but patient was not aware of this abnormality until admitted 2020 when her follow-up lab work-up done on November 16, 2020 showed white blood count 8.2 hemoglobin 16.2 hematocrit 49.5 normal being 36-46 and platelets 548,000, patient was referred to hematology clinic for evaluation, patient denies any history of headaches blurred vision double vision, denies any paresthesia, but complaining of generalized weakness and fatigue and excessive sleep during daytime and snoring at night especially when she is tired. Patient denies any history of stroke but as mentioned above she has history of coronary artery disease and AMI, status post LAD stenting at age 30. Patient is a heavy smoker she used to smoke about pack per day since age 21 and then about 6 months ago she cut down smoking to 2 to 3 packs/week patient is on aspirin. Patient denies any night sweats, denies any hot flashes, denies any recurrent fever denies any weight loss denies any weight gain, denies any peripheral lymphadenopathy or abdominal fullness Came for follow-up, denies any specific complaints, except generalized weakness and fatigue, excessive snoring at night and ability to sleep on her back, more comfortable sleeping on the side, no headaches, no blurred vision, no chest pain, no dizziness, no numbness. On baby aspirin daily Medications: Aspirin 1 Tablet (of 81 mg) Tablet, chewable Oral daily, Carvedilol 1 Tablet (of 3.125 mg) Oral b.i.d., Clopidogrel Bisulfate 1 Tablet (of 75 mg) Oral daily, Crestor 1 Tablet (of 20 mg) Oral daily, Furosemide 1 Tablet (of 40 mg) Oral daily Allergies: No Known Allergies. Review of Systems: Review of Systems is not available for this patient. Vital Signs: Performed on May 03, 2021 08:18 Height - 65.00 in Weight - 235 lbs (HIGH) BSA - 2.12 sq.m BMI - 39.11 (HIGH) Temperature - 98.2 F (LOW) Pulse - 70 /min Respiration - 18 /min BP - 115/81 mm(hg) O2 Sat - 98 % Pain - 4 Fatigue - 6 Performance Status: 0 - Fully active, able to carry on all predisease activities without restrictions. (ECOG) Physical Examination: ENMT - No mouth sores, no thrush, no jaundice, Respiratory - Lungs are clear to auscultation, Cardiovascular - Regular rate and rhythm of heart, Abdomen - Soft, bowel sounds present, Extremities - No visible edema. Lab/Imaging: Most recent lab results are not available for this patient. 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, Which could be further aggravated by chronic smoking and possible sleep apnea Mild thrombocytosis could be inflammatory marker or mild blood loss, patient had episode of dark-colored stools in recent past or myeloproliferative disorder History of AMI/LAD stenting at age 30 Heavy smoking since age 21 Generalized weakness and fatigue, probably due to underlying sleep apnea Plan: Discussed with patient regarding her labs white blood count 8 hemoglobin 15.9 hematocrit 46.6 compared to 50 previously platelets 574,000, her testing for polycythemia vera came back positive for JAK2 617 F mutation Clinically, patient is doing well with no new signs symptoms, her lab work-up showed JAK2 617 F mutation, indicating polycythemia vera, as far as risk prognostication concerned, patient is a low risk as being less than 60-year-old, platelet count is less than million, no history of clot, concern was AMI at age 30, as per patient 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 Patient was advised to quit smoking and was offered any assistance she may need and we will also consider sleep study as if she is confirmed with sleep apnea, she may benefit from CPAP machine. Patient will return to clinic in 1 month with CBC but in the meantime she will continue with weekly CBC and phlebotomy .To achieve and keep hematocrit less than 42% Signed By: Nancy Suazo M.D. <<Signature on File>>
== END 2021-05-03 06:24 | disposition home or self-care (01) ==
PROVIDERS: Visit Provider Internal Medicine Hematology & Oncology
DX: D45 Polycythemia vera (principal); D75.838 Other thrombocytosis; F17.210 Nicotine dependence, cigarettes, uncomplicated; R53.1 Weakness; R53.82 Chronic fatigue, unspecified; G47.33 Obstructive sleep apnea (adult) (pediatric); I25.2 Old myocardial infarction; Z79.899 Other long term (current) drug therapy
CPT/HCPCS: 99195; 99214; J7050

== ENCOUNTER 2021-05-22 12:00 | Outpatient (CLI) | payer BC, SELFPAY | END 2021-05-22 12:01 | disposition home or self-care (01) | LOC: SLEEP 06-04 15:08 | PROVIDERS: Visit Provider Internal Medicine Hematology & Oncology | DX: D75.1 Secondary polycythemia (principal) | CPT/HCPCS: G0399 ==

== ENCOUNTER 2021-06-12 13:03 | Outpatient (CLI) | payer BC, SELFPAY ==
[2021-06-12 13:53] LABS: Basophils # 0.1 10^3/uL (0.0-0.1); Basophils % 0.7 %; Eosinophils # 0.2 10^3/uL (0.0-0.8); Eosinophils % 2.4 %; Hematocrit 44.4 % (37.0-47.0); Hemoglobin 15.1 g/dL (11.5-15.3); Lymphocytes # 1.7 10^3/uL (0.8-4.8); Mean Corpuscular Volume 88.1 fl (81-99); Mean Platelet Volume 10.6 fL (7.4-10.4); Monocytes # 0.5 10^3/uL (0.2-0.9); Monocytes % 5.8 %; Neutrophils # 6.08 10^3/uL (1.8-7.7); Neutrophils % 70.9 %; Nucleated Red Blood Cells % 0 %; Platelet Count 619 10^3/cmm (130-400); Red Blood Count 5.04 10^6/uL (4.1-5.3); Red Cell Distribution Width 12.4 % (12.1-15.1); White Blood Count 8.6 10^3/uL (4.0-10.0)
[2021-06-12] MEDS: sodium chloride 0.9% 250 ML 999 ML IV (15:10)
== END 2021-06-12 13:04 | disposition home or self-care (01) ==
LOC: ONCMED 14:01
PROVIDERS: Visit Provider Internal Medicine Hematology & Oncology
DX: D45 Polycythemia vera (principal); F17.210 Nicotine dependence, cigarettes, uncomplicated; G47.30 Sleep apnea, unspecified; D75.838 Other thrombocytosis; I25.2 Old myocardial infarction; Z95.818 Presence of other cardiac implants and grafts; Z79.899 Other long term (current) drug therapy
CPT/HCPCS: 36415; 85025; 99195; 99214; J7050

== ENCOUNTER 2021-07-10 07:48 | Outpatient (CLI) | payer BC, SELFPAY ==
[2021-07-10 08:43] LABS: Basophils # 0.1 10^3/uL (0.0-0.1); Basophils % 0.8 %; Eosinophils # 0.3 10^3/uL (0.0-0.8); Hematocrit 42.7 % (37.0-47.0); Hemoglobin 14.2 g/dL (11.5-15.3); Lymphocytes # 1.8 10^3/uL (0.8-4.8); Lymphocytes % 20.5 %; Mean Corpuscular HGB Conc 33.3 g/dL (30.0-36.0); Mean Corpuscular Volume 87.1 fl (81-99); Mean Platelet Volume 10.8 fL (7.4-10.4); Monocytes # 0.6 10^3/uL (0.2-0.9); Monocytes % 6.6 %; Neutrophils # 6.11 10^3/uL (1.8-7.7); Neutrophils % 68.8 %; Nucleated Red Blood Cells % 0 %; Platelet Count 534 10^3/cmm (130-400); Red Cell Distribution Width 12.4 % (12.1-15.1); White Blood Count 8.9 10^3/uL (4.0-10.0)
[2021-07-10] MEDS: sodium chloride 0.9% 250 ML 999 ML IV (10:40)
--- NOTE | 2021-07-10 13:28 | ONC FU_ITS ---
Dr. Suazo follow up note Patient: Trupti Terrazas Unit #: [id number]: 1985 Dicatated By: Nancy Suazo M.D.Date of Visit:Jul 10, 2021 Onc Med Follow-up/Prog Note History of Present Illness: Ms. Trupti Terrazas, is a 36-year-old female with a history of [place] at age 30, status post stent in LAD, as per patient in April 2019 she was at [facility] at that time on lab work-up showed white blood count 10.4 hemoglobin 15.6 hematocrit 45.4 platelets 751,000 but patient was not aware of this abnormality until admitted 2020 when her follow-up lab work-up done on November 16, 2020 showed white blood count 8.2 hemoglobin 16.2 hematocrit 49.5 normal being 36-46 and platelets 548,000, patient was referred to hematology clinic for evaluation, patient denies any history of headaches blurred vision double vision, denies any paresthesia, but complaining of generalized weakness and fatigue and excessive sleep during daytime and snoring at night especially when she is tired. Patient denies any history of stroke but as mentioned above she has history of coronary artery disease and AMI, status post LAD stenting at age 30. Patient is a heavy smoker she used to smoke about pack per day since age 21 and then about 6 months ago she cut down smoking to 2 to 3 packs/week patient is on aspirin. Patient denies any night sweats, denies any hot flashes, denies any recurrent fever denies any weight loss denies any weight gain, denies any peripheral lymphadenopathy or abdominal fullness Sleep study done on May 22, 2021 showed mild obstructive sleep apnea syndrome, nocturnal hypoxemia, severity of sleep apnea may be underestimated due to inability to score sleep Came for follow-up, denies any specific complaints, no fever or chills, no nausea or vomiting, no diarrhea or constipation, no headaches no blurred vision or double vision, patient is tolerating phlebotomies well, in fact, feel more energetic after phlebotomy. Still smoke about half pack a day, as per patient she is trying to cut down further. Patient recently underwent sleep study which confirmed sleep apnea, and nocturnal hypoxia. Patient is scheduled to see pulmonology for evaluation regarding CPAP machine. Medications: Aspirin 1 Tablet (of 81 mg) Tablet, chewable Oral daily, Carvedilol 1 Tablet (of 3.125 mg) Oral b.i.d., Clopidogrel Bisulfate 1 Tablet (of 75 mg) Oral daily, Crestor 1 Tablet (of 20 mg) Oral daily, Furosemide 1 Tablet (of 40 mg) Oral daily Allergies: No Known Allergies. Review of Systems: Review of Systems is not available for this patient. Vital Signs: Performed on Jul 10, 2021 11:36 Height - 65.00 in Weight - 233.8 lbs (LOW) BSA - 2.11 sq.m BMI - 38.91 (HIGH) Temperature - 97.4 F (LOW) Pulse - 50 /min (LOW) Respiration - 16 /min BP - 120/80 mm(hg) O2 Sat - 98 % Pain - 0 Fatigue - 4 Performance Status: 0 - Fully active, able to carry on all predisease activities without restrictions. (ECOG) Physical Examination: ENMT - No mouth sores, no thrush, no jaundice, Respiratory - Lungs are clear to auscultation, Cardiovascular - Regular rate and rhythm of heart, Abdomen - Soft, bowel sounds present, Extremities - No visible edema. 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, Which could be further aggravated by chronic smoking and sleep apnea, Confirmed with sleep study done on May 22, 2021 Now being treated with phlebotomies on as-needed basis since May 03, 2021 and goal is to keep her hematocrit less than 42 Mild thrombocytosis could be inflammatory marker or mild blood loss, patient had episode of dark-colored stools in recent past or myeloproliferative disorder History of AMI/LAD stenting at age 30 Heavy smoking since age 21 Generalized weakness and fatigue, probably due to underlying sleep apnea Plan: Discussed with patient regarding her labs white blood count 8.9 hemoglobin 14.2 hematocrit 42.7 compared to 44.4 previously, MCV 87.1 platelets 534,000 compared to 619,000 previously Clinically, patient is doing well with no new signs symptoms, recently underwent sleep study which confirmed underlying sleep apnea, which may be contributing to her polycythemia in addition to polycythemia vera. Patient is scheduled to see pulmonology for evaluation for CPAP machine. In the meantime patient was advised to quit smoking and was offered any assistance she may need. She is tolerating phlebotomies well and now her hematocrit is down to 42.7 and the goal is to keep it less than 42. We will proceed with next phlebotomy with 250 cc and replaced with 250 cc normal saline. Patient return to clinic in 1 month with CBC. Signed By: Nancy Suazo M.D. <<Signature on File>>
== END 2021-07-10 07:49 | disposition home or self-care (01) ==
LOC: ONCMED 07:52
PROVIDERS: Visit Provider Internal Medicine Hematology & Oncology
DX: D45 Polycythemia vera (principal); G47.30 Sleep apnea, unspecified; D75.839 Thrombocytosis, unspecified; F17.210 Nicotine dependence, cigarettes, uncomplicated; R53.1 Weakness; R53.83 Other fatigue; I25.2 Old myocardial infarction; Z79.899 Other long term (current) drug therapy
CPT/HCPCS: 36415; 85025; 99195; 99214; J7050

== ENCOUNTER 2021-08-21 09:49 | Outpatient (CLI) | payer BC, SELFPAY ==
[2021-08-21 10:21] LABS: Basophils # 0.1 10^3/uL (0.0-0.1); Basophils % 0.8 %; Eosinophils # 0.2 10^3/uL (0.0-0.8); Eosinophils % 2.1 %; Hematocrit 43.5 % (37.0-47.0); Lymphocytes # 1.9 10^3/uL (0.8-4.8); Mean Corpuscular HGB Conc 32.2 g/dL (30.0-36.0); Mean Corpuscular Hemoglobin 26.2 pg (28.0-34.0); Mean Corpuscular Volume 81.5 fl (81-99); Mean Platelet Volume 11.1 fL (7.4-10.4); Monocytes # 0.6 10^3/uL (0.2-0.9); Neutrophils % 69.9 %; Nucleated Red Blood Cells % 0 %; Platelet Count 554 10^3/cmm (130-400); Red Blood Count 5.34 10^6/uL (4.1-5.3); Red Cell Distribution Width 13.2 % (12.1-15.1); White Blood Count 9.2 10^3/uL (4.0-10.0)
[2021-08-21] MEDS: sodium chloride 0.9% 250 ML 999 ML IV (12:58)
--- NOTE | 2021-08-26 08:10 | ONC FU_ITS ---
Nano Manzo Progress Note Patient: Trupti Terrazas Unit #: [id number]: 1985 Dicatated By: Nano Manzo N.P.Date of Visit:Aug 21, 2021 Onc MED Follow-up/Prog Note Chief Complaint: Polycythemia/thrombocytosis History of Present Illness: Ms. Trupti Terrazas, is a 36-year-old female with a history of [place] at age 30, status post stent in LAD, as per patient in April 2019 she was at [facility] at that time on lab work-up showed white blood count 10.4 hemoglobin 15.6 hematocrit 45.4 platelets 751,000 but patient was not aware of this abnormality until admitted 2020 when her follow-up lab work-up done on November 16, 2020 showed white blood count 8.2 hemoglobin 16.2 hematocrit 49.5 normal being 36-46 and platelets 548,000, patient was referred to hematology clinic for evaluation, patient denies any history of headaches blurred vision double vision, denies any paresthesia, but complaining of generalized weakness and fatigue and excessive sleep during daytime and snoring at night especially when she is tired. Patient denies any history of stroke but as mentioned above she has history of coronary artery disease and AMI, status post LAD stenting at age 30. Patient is a heavy smoker she used to smoke about pack per day since age 21 and then about 6 months ago she cut down smoking to 2 to 3 packs/week patient is on aspirin. Patient denies any night sweats, denies any hot flashes, denies any recurrent fever denies any weight loss denies any weight gain, denies any peripheral lymphadenopathy or abdominal fullness Sleep study done on May 22, 2021 showed mild obstructive sleep apnea syndrome, nocturnal hypoxemia, severity of sleep apnea may be underestimated due to inability to score sleep Patient presents today for follow-up. She states that she has been feeling pretty good she still has some fatigue especially when she needs a phlebotomy. Her appetite has been good. She denies fever, chills, night sweats. No shortness of breath, cough, chest pain. No GI problems no problems she has occasional headaches. She had a sleep study which indicates that she needs a CPAP but she has had difficulty getting an appointment with pulmonology. Review Of Symptoms: See above. Past Medical History: Coronary artery disease Hypertension Past Surgical History: Cholecystectomy in 2015 LAD Coronary Artery Stent Placement in 2014 Allergies: No Known Allergies. Medications: Aspirin 1 Tablet (of 81 mg) Tablet, chewable Oral daily Carvedilol 1 Tablet (of 3.125 mg) Oral b.i.d. Clopidogrel Bisulfate 1 Tablet (of 75 mg) Oral daily Crestor 1 Tablet (of 20 mg) Oral daily Furosemide 1 Tablet (of 40 mg) Oral daily Family History: There is no documented family history. Social History: Ms. Terrazas is . She is a daily smoker who has smoked 0.5 packs/day for 15 years. She has no history of drinking. Physical Examination: Performed on Aug 21, 2021 11:54: Height - 65.00 in, Weight - 228.2 lbs (LOW), BSA - 2.09 sq.m, BMI - 37.97 (HIGH), Temperature - 97.8 F (LOW), Pulse - 94 /min, Respiration - 16 /min, BP - 130/79 mm(hg), O2 Sat - 97 %, Pain - 3, and Fatigue - 5. Performance Status: 0 - Fully active, able to carry on all predisease activities without restrictions. (ECOG) Constitutional Alert, cooperative, oriented. Mood and affect appropriate. Appears close to chronological age. Well nourished. Well developed. Head Normocephalic; no scars. Eyes Conjunctivae and sclerae are clear and without icterus. Pupils are reactive and equal. Hematologic/Lymphatic No petechiae or purpura. No tender or palpable lymph nodes in the cervical, supraclavicular, axillary or inguinal area. Respiratory Lungs are clear to auscultation without rhonchi or wheezing. Cardiovascular Regular rate and rhythm of heart without murmurs, gallops or rubs. Abdomen Non-tender, non-distended, no masses, ascites or hepatosplenomegaly. Good bowel sounds. No guarding or rebound tenderness. Extremities No visible deformities, no cyanosis, clubbing or edema. Pulses 3+ and equal bilaterally. Neurologic No sensory or motor deficits, normal gait Psychiatric Alert and oriented times three. Coherent speech. Verbalizes understanding of our discussions today. 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, Which could be further aggravated by chronic smoking and sleep apnea, Confirmed with sleep study done on May 22, 2021 Now being treated with phlebotomies on as-needed basis since May 03, 2021 and goal is to keep her hematocrit less than 42 Mild thrombocytosis could be inflammatory marker or mild blood loss, patient had episode of dark-colored stools in recent past or myeloproliferative disorder History of AMI/LAD stenting at age 30 Heavy smoking since age 21 Generalized weakness and fatigue, probably due to underlying sleep apnea Plan: Labs were reviewed with patient WBC 9.2, hemoglobin 14.0 hematocrit 43.5, and platelet count 554,000. Patient has been feeling pretty good. She is awaiting appointment with pulmonology for CPAP which could be contributing to her polycythemia. She will receive a phlebotomy today with 500 cc removal and replaced with 250 cc normal saline. The goal is to keep her hematocrit less than 42. She will return in 1 month with CBC and CMP and we will plan another phlebotomy if her labs indicate. Signed By: Nano Manzo N.P. <<Signature on File>> Iván
== END 2021-08-21 09:50 | disposition home or self-care (01) ==
PROVIDERS: Internal Medicine Hematology & Oncology; Visit Provider Nurse Practitioner Family
DX: D45 Polycythemia vera (principal); I25.10 Atherosclerotic heart disease of native coronary artery without angina pectoris; I10 Essential (primary) hypertension; D75.839 Thrombocytosis, unspecified; G47.33 Obstructive sleep apnea (adult) (pediatric); F17.200 Nicotine dependence, unspecified, uncomplicated; Z79.899 Other long term (current) drug therapy
CPT/HCPCS: 85025; 96360; 99195; 99215; J7050

== ENCOUNTER 2021-09-26 11:21 | Outpatient (CLI) | payer BC, SELFPAY ==
[2021-09-26 12:11] LABS: Basophils # 0.1 10^3/uL (0.0-0.1); Basophils % 0.9 %; Eosinophils # 0.3 10^3/uL (0.0-0.8); Eosinophils % 2.8 %; Hemoglobin 12.9 g/dL (11.5-15.3); Lymphocytes # 1.7 10^3/uL (0.8-4.8); Lymphocytes % 17.3 %; Mean Corpuscular HGB Conc 31.5 g/dL (30.0-36.0); Mean Corpuscular Hemoglobin 24.8 pg (28.0-34.0); Mean Corpuscular Volume 78.7 fl (81-99); Mean Platelet Volume 10.8 fL (7.4-10.4); Monocytes # 0.6 10^3/uL (0.2-0.9); Monocytes % 6.1 %; Neutrophils # 6.96 10^3/uL (1.8-7.7); Neutrophils % 72.6 %; Nucleated Red Blood Cells % 0 %; Platelet Count 593 10^3/cmm (130-400); Red Blood Count 5.21 10^6/uL (4.1-5.3); Red Cell Distribution Width 13.9 % (12.1-15.1); White Blood Count 9.6 10^3/uL (4.0-10.0)
[2021-09-26 12:31] LABS: Alanine Aminotransferase 40 U/L (0-33); Albumin Level 4.6 g/dL (3.5-5.2); Alkaline Phosphatase 132 IU/L (35-105); Anion Gap 13.9 (5-19); Aspartate Amino Transferase 36 U/L (0-32); Blood Urea Nitrogen 12 mg/dL (6-20); Calcium 9.8 mg/dL (8.5-10.5); Carbon Dioxide 25 mmol/L (22-29); Chloride 103 mmol/L (98-107); Globulin 3.1 g/dL (1.3-4.6); Glomerular Filtration Rate 71.3 mL/min (90-130); Glucose 110 mg/dL (65-115); Osmolality Calculated 286 mOsm/kg (285-295); Potassium 3.9 mmol/L (3.5-5.1); Sodium 138 mmol/L (136-145); Total Bilirubin 0.3 mg/dL (0.15-1.2); Total Protein 7.7 g/dL (6.6-8.7)
--- NOTE | 2021-09-26 13:57 | ONC FU_ITS ---
Dr. Suazo follow up note Patient: Trupti Terrazas Unit #: [id number]: 1985 Dicatated By: Nancy Suazo M.D.Date of Visit:Sep 26, 2021 Onc Med Follow-up/Prog Note History of Present Illness: Ms. Trupti Terrazas, is a 36-year-old female with a history of [place] at age 30, status post stent in LAD, as per patient in April [address] [facility] at that time on lab work-up showed white blood count 10.4 hemoglobin 15.6 hematocrit 45.4 platelets 751,000 but patient was not aware of this abnormality until admitted 2020 when her follow-up lab work-up done on November 16, 2020 showed white blood count 8.2 hemoglobin 16.2 hematocrit 49.5 normal being 36-46 and platelets 548,000, patient was referred to hematology clinic for evaluation, patient denies any history of headaches blurred vision double vision, denies any paresthesia, but complaining of generalized weakness and fatigue and excessive sleep during daytime and snoring at night especially when she is tired. Patient denies any history of stroke but as mentioned above she has history of coronary artery disease and AMI, status post LAD stenting at age 30. Patient is a heavy smoker she used to smoke about pack per day since age 21 and then about 6 months ago she cut down smoking to 2 to 3 packs/week patient is on aspirin. Patient denies any night sweats, denies any hot flashes, denies any recurrent fever denies any weight loss denies any weight gain, denies any peripheral lymphadenopathy or abdominal fullness Sleep study done on May 22, 2021 showed mild obstructive sleep apnea syndrome, nocturnal hypoxemia, severity of sleep apnea may be underestimated due to inability to score sleep Came for follow-up, denies any specific complaints, no fever chills, no nausea or vomiting, no diarrhea constipation, no headaches blurred vision double vision, tolerating phlebotomies well. Patient said she is also undergoing evaluation for sleep apnea. And still smoking about pack a day Medications: Aspirin 1 Tablet (of 81 mg) Tablet, chewable Oral daily, Carvedilol 1 Tablet (of 3.125 mg) Oral b.i.d., Clopidogrel Bisulfate 1 Tablet (of 75 mg) Oral daily, Crestor 1 Tablet (of 20 mg) Oral daily, Furosemide 1 Tablet (of 40 mg) Oral daily Allergies: No Known Allergies. Review of Systems: Review of Systems is not available for this patient. Vital Signs: Performed on Sep 26, 2021 13:36 Height - 65.00 in Weight - 227.8 lbs (LOW) BSA - 2.09 sq.m BMI - 37.91 (HIGH) Temperature - 97.2 F (LOW) Pulse - 84 /min Respiration - 16 /min BP - 139/85 mm(hg) O2 Sat - 99 % Pain - 6 Fatigue - 7 Performance Status: 0 - Fully active, able to carry on all predisease activities without restrictions. (ECOG) Physical Examination: ENMT - No mouth sores, no thrush, no jaundice, Respiratory - Poor air entry otherwise clear, Cardiovascular - Regular rate and rhythm of heart, Abdomen - Soft, bowel sounds present, Extremities - No visible edema. Lab/Imaging: Test performed on Aug 21, 2021 10:12 WBC 9.2 10 3/uL RBC 5.34 10 6/uL HGB 14.0 g/dL HCT 43.5 % MCV 81.5 fl MCH 26.2 pg MCHC 32.2 g/dL RDW 13.2 % Platelet Count 554 10 3/cmm MPV 11.1 fL Neutrophils 6.40 10 3/uL Lymphocytes 1.9 10 3/uL Monocytes 0.6 10 3/uL Eosinophils 0.2 10 3/uL Basophils 0.1 10 3/uL Neutrophil % 69.9 % Lymphocyte % 21.0 % Monocyte % 6.0 % Eosinophil % 2.1 % Basophils % 0.8 % NRBC % 0 % 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, Which could be further aggravated by chronic smoking and sleep apnea, Confirmed with sleep study done on May 22, 2021 Now being treated with phlebotomies on as-needed basis since May 03, 2021 and goal is to keep her hematocrit less than 42 Mild thrombocytosis could be inflammatory marker or mild blood loss, patient had episode of dark-colored stools in recent past or myeloproliferative disorder History of AMI/LAD stenting at age 30 Heavy smoking since age 21 Generalized weakness and fatigue, probably due to underlying sleep apnea Plan: Discussed with patient regarding her labs white blood count 9.6 hemoglobin 12.9 hematocrit 41 platelets 593,000 CMP within normal limits Except mildly elevated AST/ALT Clinically, patient doing well with no new signs symptom, follow-up labs shows hematocrit in desirable range e.g. less than 42, we will continue to monitor and she will return to clinic in 1 month with CBC and patient was advised to quit smoking and was offered any assistance she may need and patient was also encouraged to complete her evaluation for sleep apnea, as once confirmed, she may benefit from CPAP machine. Mildly elevated ALT AST, could be due to fatty infiltration of liver, will monitor Signed By: Nancy Suazo M.D. <<Signature on File>>
== END 2021-09-26 11:22 | disposition home or self-care (01) ==
PROVIDERS: Visit Provider Internal Medicine Hematology & Oncology
DX: D45 Polycythemia vera (principal); D75.839 Thrombocytosis, unspecified; F17.210 Nicotine dependence, cigarettes, uncomplicated; R74.8 Abnormal levels of other serum enzymes; I25.2 Old myocardial infarction; Z79.82 Long term (current) use of aspirin; Z79.899 Other long term (current) drug therapy
CPT/HCPCS: 36415; 80053; 85025; 99214

== ENCOUNTER 2021-11-25 10:21 | Oncology outpatient (recurring) (ONCR) | payer BC, SELFPAY ==
[2021-11-25 10:40] LABS: Basophils # 0.1 10^3/uL (0.0-0.1); Basophils % 0.9 %; Eosinophils # 0.2 10^3/uL (0.0-0.8); Eosinophils % 2.2 %; Hematocrit 42.6 % (37.0-47.0); Hemoglobin 13.1 g/dL (11.5-15.3); Lymphocytes # 2.1 10^3/uL (0.8-4.8); Lymphocytes % 20.3 %; Mean Corpuscular HGB Conc 30.8 g/dL (30.0-36.0); Mean Corpuscular Hemoglobin 23.4 pg (28.0-34.0); Mean Corpuscular Volume 76.1 fl (81-99); Monocytes # 0.6 10^3/uL (0.2-0.9); Monocytes % 5.2 %; Neutrophils # 7.49 10^3/uL (1.8-7.7); Neutrophils % 71.1 %; Nucleated Red Blood Cells % 0 %; Platelet Count 621 10^3/cmm (130-400); Red Cell Distribution Width 16.2 % (12.1-15.1); White Blood Count 10.5 10^3/uL (4.0-10.0)
== END 2021-12-19 23:59 | disposition home or self-care (01) ==
PROVIDERS: Internal Medicine Hematology & Oncology; Referring Provider Registered Nurse; Visit Provider Nurse Practitioner Family
DX: D75.1 Secondary polycythemia (principal)
CPT/HCPCS: 36415; 85025

== ENCOUNTER 2022-01-22 11:25 | Oncology outpatient (recurring) (ONCR) | payer BC, SELFPAY ==
[2022-01-22 12:16] LABS: Basophils # 0.1 10^3/uL (0.0-0.1); Basophils % 0.6 %; Eosinophils # 0.2 10^3/uL (0.0-0.8); Eosinophils % 2.2 %; Hematocrit 40.5 % (37.0-47.0); Hemoglobin 12.5 g/dL (11.5-15.3); Lymphocytes # 1.6 10^3/uL (0.8-4.8); Lymphocytes % 17.6 %; Mean Corpuscular HGB Conc 30.9 g/dL (30.0-36.0); Mean Corpuscular Hemoglobin 23.1 pg (28.0-34.0); Mean Platelet Volume 10.8 fL (7.4-10.4); Monocytes # 0.6 10^3/uL (0.2-0.9); Monocytes % 6.3 %; Neutrophils # 6.53 10^3/uL (1.8-7.7); Nucleated Red Blood Cells % 0 %; Platelet Count 598 10^3/cmm (130-400); Red Cell Distribution Width 16.6 % (12.1-15.1); White Blood Count 8.9 10^3/uL (4.0-10.0)
== END 2022-02-19 23:59 | disposition home or self-care (01) ==
PROVIDERS: Nurse Practitioner; Referring Provider Registered Nurse; Visit Provider Nurse Practitioner Family
DX: D45 Polycythemia vera (principal)
CPT/HCPCS: 36415; 85025

== ENCOUNTER 2022-05-13 19:40 | Observation (INO) | payer BC, SELFPAY ==
[2022-05-13] VITALS (8 sets, daily range): BP systolic 119–156; BP diastolic 67–96; PULSE 59–101; RESP 16–18; TEMP 36.7–36.8; O2SAT 97–100; BMI 40.4
--- NOTE | 2022-05-13 20:31 | W.ED.BACK ---
HPI - Back Pain/Injury General: Chief Complaint: Back Pain/Injury Stated Complaint: Low back pian Time Seen by Provider: 05/13/22 20:19 History of Present Illness: 37-year-old female presents to the emergency department with chief complaint of back pain. She feels it sort of on both sides but during her examination has isolated it to the left costophrenic area. She reports that it is a constant pain and she has been unable to sleep tonight due to it. It has been going on for the last 3 days. Patient tells me that she has been under a lot of stress and over the last few weeks she has had problems with her gastrointestinal system. At first she was having vomiting after eating. Now over the last 2 weeks, she has dumping syndrome. Within about 10 minutes after eating she usually has a little bit of diarrhea and cramping. She does have a relevant history of myocardial infarction at the age of 30. Patient does not complain of any chest pain, shortness of breath, hematuria, diaphoresis, syncope, fever, chills, back injury. Last menstrual cycle was 2 months ago. She is chronically irregular. She does have a history of polycythemia vera. Associated symptoms: Reports change in bowel habits; Deny abdominal pain, chills, dysuria, fever(s), hematuria, nausea, syncope, urinary urgency or vomiting Review of Systems General: Reports: 10 or more systems reviewed and unremarkable except in HPI and below Const: Denies: fever(s) or chills Card: Denies: chest pain or syncope Resp: Denies: dyspnea, productive cough or non-productive cough GI: Reports: diarrhea and change in bowel habits; Denies: abdominal pain, nausea, vomiting, hematemesis, constipation, pain on defecation, rectal pain, hematochezia or melena : Reports: flank pain; Denies: difficulty voiding, dysuria, urinary frequency, urinary urgency, urinary hesitancy, dribbling, oliguria, urinary incontinence or hematuria Skin/Breast: Denies: rash or sores Neuro: Denies: headache(s) or weakness in extremities Psych: Reports: other (stress) [facility] PFSH: Medical History (Updated 03/14/22 @ 12:56 by Arlyn Fisher MD) Coronary artery disease Emphysema lung History of coronary angiogram Hyperlipidemia Hypertension Nocturnal hypoxemia Obesity Obstructive sleep apnea Polycythemia vera Secondary polycythemia Surgical History (Updated 03/14/22 @ 12:53 by Arlyn Fisher MD) H/O angioplasty History of cholecystectomy Family History Grandmother Clotting disorder Cancer Dementia Diabetes Grandmother No problems noted. Grandfather Stroke Other Hyperlipidemia Hypertension Social History Smoking and tobacco status: current every day smoker cigarettes Packs smoked per day: 0.5 Years cigarettes smoked: 20 [ Other cigarette details: started at age 15.] Alcohol intake: never Female Reproductive History: Date of last menstrual period: 02/23/22 Physical Exam Const: COMMON NORMALS: no limitations, alert and well nourished; negative for average body habitus (obese) EXAM LIMITATIONS: no altered mental status GENERAL APPEARANCE: cooperative, well kempt and well developed ORIENTATION/CONSCIOUSNESS: Yes awake; not confused HENMT: COMMON NORMALS: normocephalic and atraumatic HEAD & SCALP: normal to inspection, normocephalic and atraumatic MOUTH: no muffled voice Eye: COMMON NORMALS: conjunctivae normal GENERAL EYE: appearance normal, both eyes and all related structures CONJUNCTIVA: Yes conjunctivae normal Neck/C-Spine: COMMON NORMALS: no JVD GENERAL: Yes normal visual inspection and Yes trachea midline Resp: COMMON NORMALS: normal respiratory effort, No use of accessory muscles and clear to auscultation bilaterally EFFORT & INSPECTION: Yes able to speak in complete sentences and Yes symmetric chest movement AUSCULTATION: clear to auscultation bilaterally Cardio: COMMON NORMALS: no JVD, regular rate and regular rhythm RATE: regular rate RHYTHM: regular rhythm GI: COMMON NORMALS: Soft to palpation INSPECTION: Yes normal to inspection PALPATION: Yes Soft to palpation, No Tenderness to palpation present (GI) and No Guarding due to palpation present (GI) Back/Pelvis: COMMON NORMALS: thoraco-lumbar ROM normal OTHER: Palpation along the spine and paraspinal muscles does not really cause any tenderness. However when percussing the left costophrenic angle she does have tenderness. The right costophrenic angle is not tender.. Extremity: COMMON NORMALS: normal to inspection GENERAL: Yes normal exam except as noted Neuro: COMMON NORMALS: moves all extremities, no focal motor deficits and no sensory deficits noted SENSORIUM/ORIENTATION: Yes alert Psych: COMMON NORMALS: mental status grossly normal, Normal thought process present, cooperative, normal affect and speech normal APPEARANCE: Yes well kempt SPEECH: Yes normal speech THOUGHT PROCESS: Normal thought process present Skin: COMMON NORMALS: no rashes or lesions noted, turgor normal and no jaundice GENERAL SKIN EXAM: no rashes or lesions noted and turgor normal Course Vital Signs: Vital signs: Vital Signs Temperature 98.2 F 05/13/22 19:49 Pulse Rate 60 05/13/22 21:59 Respiratory Rate 16 05/13/22 20:20 Blood Pressure 119/67 05/13/22 21:59 Pulse Oximetry 97 05/13/22 21:59 Oxygen Delivery Me thod 05/13/22 21:59 MDM - Back Pain/Injury Medical Decision Making Left costophrenic angle tenderness. Differential diagnosis would include pyelonephritis, renal cyst, nephrolithiasis, ureterolithiasis, renal cell carcinoma, enlarged spleen, dehydration, musculoskeletal pain, referred pain from somewhere else, atypical pancreatitis and multiple others. The patient is nontoxic and this has been going on for several days. It is not colicky in nature and seems unlikely to be renal colic. Splenomegaly is a possible explanation given that the patient has polycythemia vera. Pancreatitis seems unlikely based on the history and exam. At this time we will obtain BMP, CBC, UA, urine test. UPDATE: UA showing signs of infection and RBCs US showing left hydroureter/nephrosis. Concern for stone--> discussed with pt--> pt wants to proceed with CT vs abx and wait 24-48hrs Renal function is normal WBC is 13k Start rocephin 1g IV UPDATE 2199 I have reviewed the patient's CT scan and she has an approximately 3-1/2 cm fairly proximal left ureteral stone. I spoke with Dr. Ivey, urology, and he suggested admitting the patient to him. He may need to perform a stent on her tomorrow due to the fact that she has a urinary tract infection. I have started Rocephin 1 g twice daily. Patient will be n.p.o. at midnight. IV fluids have been started. As needed pain medications and nausea medication has been ordered. Labs 05/13/22 20:45 05/13/22 20:45 Radiology Impressions Renal Ultrasound 05/13/22 20:40 IMPRESSION: 1. Mild left hydronephrosis and hydroureter without obstructing lesion. 2. Spleen mildly enlarged at 13 cm. Laboratory Results WBC 13.3 10^3/uL (4.0-10.0) H 05/13/22 20:45 RBC 6.17 10^6/uL (4.1-5.3) H 05/13/22 20:45 Hgb 14.6 g/dL (11.5-15.3) 05/13/22 20:45 Hct 48.1 % (37.0-47.0) H 05/13/22 20:45 MCV 78.0 fl (81-99) L 05/13/22 20:45 MCH 23.7 pg (28.0-34.0) L 05/13/22 20:45 MCHC 30.4 g/dL (30.0-36.0) 05/13/22 20:45 RDW 15.7 % (12.1-15.1) H 05/13/22 20:45 Plt Count 705 10^3/cmm (130-400) H 05/13/22 20:45 MPV 10.2 fL (7.4-10.4) 05/13/22 20:45 Neut % (Auto) 75.0 % 05/13/22 20:45 Lymph % (Auto) 14.7 % 05/13/22 20:45 [place] % (Auto) 7.1 % 05/13/22 20:45 Eos % (Auto) 2.0 % 05/13/22 20:45 Baso % (Auto) 0.8 % 05/13/22 20:45 Neut # (Auto) 9.98 10^3/uL (1.8-7.7) H 05/13/22 20:45 Lymph # (Auto) 2.0 10^3/uL (0.8-4.8) 05/13/22 20:45 [place] # (Auto) 1.0 10^3/uL (0.2-0.9) H 05/13/22 20:45 Eos # (Auto) 0.3 10^3/uL (0.0-0.8) 05/13/22 20:45 Baso # (Auto) 0.1 10^3/uL (0.0-0.1) 05/13/22 20:45 Nucleated RBC % (auto) 0 % 05/13/22 20: Nucleated RBCs # 0.0 /100WBC 05/13/22 20:45 Sodium 140 mmol/L (136-145) 05/13/22 20:45 Potassium 3.8 mmol/L (3.5-5.1) 05/13/22 20:45 Chloride 105 mmol/L (98-107) 05/13/22 20:45 Carbon Dioxide 27 mmol/L (22-29) 05/13/22 20:45 Anion Gap 11.8 (5-19) 05/13/22 20:45 BUN 9 mg/dL (6-20) 05/13/22 20:45 Creatinine 1.2 mg/dL (0.5-0.9) H 05/13/22 20:45 GFR Calculation 50.8 mL/min (90-130) L 05/13/22 20: Glucose 77 mg/dL (65-115) 05/13/22 20:45 Calculated Osmolality 287 mOsm/kg (285-295) 05/13/22 20:45 Calcium 9.6 mg/dL (8.5-10.5) 05/13/22 20:45 HCG, Qual Negative (Negative) 05/13/22 20:45 Urine Color Yellow (Yellow) 05/13/22 20:45 Urine Appearance Cloudy (CLEAR) A 05/13/22 20:45 Urine pH 6 (5-7) 05/13/22 20:45 Ur Specific [place] 1.015 (1.005-1.030) 05/13/22 20:45 Urine Protein 1+ (Negative) H 05/13/22 20:45 Urine Glucose (UA) Norm (Normal) 05/13/22 20:45 Urine Ketones 1+ (Negative) H 05/13/22 20:45 Urine Blood 3+ (Negative) H 05/13/22 20:45 Urine Nitrate Positive (Negative) H 05/13/22 20:45 Urine Bilirubin Neg (Negative) 05/13/22 20:45 Urine Urobilinogen 1 mg/dL (Negative) H 05/13/22 20:45 Ur Leukocyte Esterase 2+ (Negative) H 05/13/22 20:45 Urine RBC Too numerous to cnt /hpf (0-2) H 05/13/22 20:45 Urine WBC Too numerous to cnt /hpf (0-5) H 05/13/22 20:45 Ur Squamous Epith Cells 5-10 /hpf (0-5) H 05/13/22 20:45 Amorphous Sediment Not Reportable 05/13/22 20:45 Urine Bacteria 4+ /hpf (NONE) H 05/13/22 20:45 Discharge Plan Discharge Condition: Stable Prescriptions: No Action Midol 500-25 mg tablet 1 tab PO Q6H PRN carvedilol 3.125 mg tablet 3.125 mg PO BID Qty: 90 1RF clopidogrel 75 mg tablet 75 mg PO DAILY Qty: 90 1RF furosemide 40 mg tablet 40 mg PO DAILY Qty: 90 1RF pantoprazole 40 mg tablet,delayed release (DR/EC) 40 mg PO DAILY Qty: 90 1RF rosuvastatin 20 mg tablet 20 mg PO DAILY Qty: 90 1RF aspirin 81 mg tablet,delayed release (DR/EC) 81 mg PO DAILY Qty: 90 1RF Coding Level of Care Code ED Medical Registrar for Chg Fwd Exam Comprehensive
--- NOTE | 2022-05-13 20:40 | USR_ITS ---
PROCEDURE INFORMATION: Exam: US Retroperitoneal; Complete; Kidneys and Bladder Exam date and time: 05/13/2022 8:57 PM Age: 37 years old Clinical indication: Abdominal pain; Flank; Left; Patient HX: History of nephrolithiasis 2006. History of polycythemia -- check spleen; Additional info: Left flank pain. , Please eval the left kidney in particular (compare to TECHNIQUE: Imaging protocol: Real-time ultrasound of the retroperitoneum with image documentation. Complete exam focused on the kidneys and bladder. COMPARISON: CT kidney stone [id number] 11/11/2020 9:18 AM FINDINGS: Right kidney: Normal. No stones. No hydronephrosis. Left kidney: Mild left hydronephrosis and hydroureter without obstructing lesion. Spleen: Spleen mildly enlarged at 13 cm. Urinary bladder: Unremarkable. US/US renal BI* [id number] IMPRESSION: 1. Mild left hydronephrosis and hydroureter without obstructing lesion. 2. Spleen mildly enlarged at 13 cm.
[2022-05-13] MEDS: dicyclomine 20 mg Tablet PO (20:42)
[2022-05-13] MEDS: loperamide 2 mg Capsule 4 MG PO (20:42)
[2022-05-13] MEDS: acetaminophen 325 mg Tablet 650 MG PO (20:42)
[2022-05-13 21:01] LABS: Basophils # 0.1 10^3/uL (0.0-0.1); Basophils % 0.8 %; Eosinophils # 0.3 10^3/uL (0.0-0.8); Hematocrit 48.1 % (37.0-47.0); Hemoglobin 14.6 g/dL (11.5-15.3); Lymphocytes % 14.7 %; Mean Corpuscular HGB Conc 30.4 g/dL (30.0-36.0); Mean Corpuscular Hemoglobin 23.7 pg (28.0-34.0); Mean Platelet Volume 10.2 fL (7.4-10.4); Monocytes % 7.1 %; Neutrophils # 9.98 10^3/uL (1.8-7.7); Nucleated Red Blood Cells % 0 %; Platelet Count 705 10^3/cmm (130-400); Red Blood Count 6.17 10^6/uL (4.1-5.3); Red Cell Distribution Width 15.7 % (12.1-15.1); White Blood Count 13.3 10^3/uL (4.0-10.0)
[2022-05-13 21:10] LABS: HCG Qualitative Urine. Negative (Negative)
[2022-05-13 21:18] LABS: Blood Urea Nitrogen 9 mg/dL (6-20); Calcium 9.6 mg/dL (8.5-10.5); Carbon Dioxide 27 mmol/L (22-29); Chloride 105 mmol/L (98-107); Glomerular Filtration Rate 50.8 mL/min (90-130); Glucose 77 mg/dL (65-115); Osmolality Calculated 287 mOsm/kg (285-295); Sodium 140 mmol/L (136-145)
[2022-05-13 21:26] LABS: Anion Gap 11.8 (5-19); Potassium 3.8 mmol/L (3.5-5.1)
[2022-05-13 21:27] LABS: Add Urine Microscopic? YES; Bilirubin Urine Neg (Negative); Blood Urine 3+ (Negative); Glucose Urine UA Norm (Normal); Ketones Urine 1+ (Negative); Leukocyte Esterase Urine 2+ (Negative); Nitrate Urine Positive (Negative); Protein Urine 1+ (Negative); Specific Gravity, Urine 1.015 (1.005-1.030); Urine Appearance Cloudy (CLEAR); Urine Color Yellow (Yellow); Urobilinogen Urine 1 mg/dL (Negative); pH Urine 6 (5-7)
[2022-05-13 21:28] LABS: Add Urine Culture? Yes; Bacteria Urine 4+ /hpf; RBC Urine TOO NUMEROUS TO CNT /hpf (0-2); WBC Urine TOO NUMEROUS TO CNT /hpf (0-5)
--- NOTE | 2022-05-13 21:32 | CTR_ITS ---
PROCEDURE INFORMATION: Exam: CT Abdomen And Pelvis Without Contrast Exam date and time: 05/13/2022 9:45 PM Age: 37 years old Clinical indication: Abdominal pain; Flank; Prior surgery; Surgery type: Gb. Cardiac stent. Patient HX: C/O back pain. Hematuria. Left hydro noted on US. ; Additional info: UTI, left hydro on US. Suspected ureteral obstruction TECHNIQUE: Imaging protocol: Computed tomography of the abdomen and pelvis without contrast. Radiation optimization: All CT scans at this facility use at least one of these dose optimization techniques: automated exposure control; mA and/or kV adjustment per patient size (includes targeted exams where dose is matched to clinical indication); or iterative reconstruction. COMPARISON: CT kidney stone [id number] 11/11/2020 9:18 AM RADIATION DOSE METRICS: Total DLP (mGy-cm): 859.63 FINDINGS: Lungs: Left lower lobe atelectasis. Liver: Normal. No mass. Gallbladder and bile ducts: Cholecystectomy. Pancreas: Normal. No ductal dilation. Spleen: Spleen enlarged to 15 cm. Adrenal glands: Normal. No mass. Kidneys and ureters: Left proximal ureter 5.6 mm calculus with moderate hydronephrosis and hydroureter with perhaps minimal periureteral edema perhaps reflecting associated infection. Stomach and bowel: Unremarkable. No obstruction. No mucosal thickening. Appendix: No evidence of appendicitis. Intraperitoneal space: Unremarkable. No free air. No significant fluid collection. Vasculature: Unremarkable. No abdominal aortic aneurysm. Lymph nodes: Unremarkable. No enlarged lymph nodes. Urinary bladder: Unremarkable as visualized. Reproductive: Unremarkable as visualized. Bones/joints: Unremarkable. No acute fracture. Soft tissues: Unremarkable. CT/CT kidney stone [id number] IMPRESSION: 1. Left proximal ureter 5.6 mm calculus with moderate hydronephrosis and hydroureter with perhaps minimal periureteral edema perhaps reflecting associated infection. 2. Left lower lobe atelectasis. 3. Spleen enlarged to 15 cm. 4. Cholecystectomy.
[2022-05-13] MEDS: ketorolac 30 mg/mL INJ 15 MG IVP (21:53)
[2022-05-13] MEDS: cefTRIAXone 1,000 MG in sodium chloride 0.9% (plus) 50 ML 100 MG IV (21:54)
[2022-05-13] MEDS: lactated ringers 1,000 ML 100 ML IV (22:35)
[2022-05-13] MEDS: morphine 4 mg/mL SDV 1 mL IVP (23:48)
[2022-05-14] VITALS (22 sets, daily range): BP systolic 119–161; BP diastolic 66–98; PULSE 43–90; RESP 14–22; TEMP 36.3–36.8; O2SAT 90–98
[2022-05-14] MEDS: morphine 4 mg/mL SDV 1 mL IVP ×4 (03:41→23:14)
--- NOTE | 2022-05-14 05:42 | P.HP_ITS ---
Providers/Chief Complaint Admitting Physician: Darling Larson MD Chief Complaint: Left ureteral stone with UTI History of Present Illness Trupti Terrazas is a 37 year old female presenting to ED last night with LEFT sided back pain x 3 days. Has had some diarrhea as well associated with eating. Some associated nausea. No fever, chills, dysuria, or gross hematuria. On PE had LEFT CVA tenderness. Workup: * CT scan: 5.5 mm stone in LEFT proximal ureter with obstructive changes. Stone was seen in [facility] on [facility] in 2020. NO ADDITIONAL RENAL STONES. * UA: TNTC WBCs and RBCs. 4+ Bacteria. POSITIVE NITRITES. 5-10 Epis. * WBC: 13.3 * Cr: 1.2, Nl electroytes * Vitals: no evidence of hemodynamic instability. Afebrile. Admitted for treatment of UTI and stone. Other comorbidities: Coronary artery disease status post LAD stenting History of obstructive sleep apnea and is doing better on CPAP. She was told that she had chronically elevated white count and platelets related to the obstructive sleep apnea and that that has been improving I reviewed the findings with her in detail. Discussed that she is not clinically septic at this point but that the recommendations would be the same based on the UTI and the obstructing stone. I recommended a cystoscopy, left: Retrograde, stent with delayed endoscopic treatment of the stone until next week after she has been on antibiotics for about a week. She asked good questions and seemed content with my answers. We reviewed the benefits risk potential complications of possible staged approach with interventional radiology antegrade stent placement if retrograde access unobtainable. Informed consent was obtained. 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 Review of Systems Const: Reports: malaise; Denies: fever(s) or chills Eyes: Denies: change in vision or yellow eyes ENMT: Denies: hoarseness Card: Denies: chest pain or palpitations Resp: Denies: dyspnea, productive cough or pain on inspiration GI: Reports: abdominal pain, nausea and diarrhea; Denies: vomiting : Reports: flank pain; Denies: difficulty voiding, dysuria or urinary frequency Musc: Denies: neck pain, joint redness or joint warmth Skin/Breast: Denies: rash or pruritus Neuro: Denies: headache(s) or lack of coordination Psych: Denies: anxiety or depression Endo: Reports: polydipsia; Denies: polyuria or flushing Thang/Lymph: Denies: easy bruising or easy bleeding All/Imm: Denies: urticaria or acute wheezing Medications/Allergies Home Medications Medication Instructions Recorded Confirmed Last Taken Type acetaminophen-pamabrom 500 mg-25 1 tab PO Q6H PRN Pain 03/12/22 05/14/22 Unknown History mg tablet (Midol) aspirin 81 mg tablet,delayed 81 mg PO DAILY #90 tabs 03/12/22 05/14/22 2 Days Ago Rx release ~05/12/22 carvedilol 3.125 mg tablet 3.125 mg PO BID #90 tabs 03/12/22 05/14/22 2 Days Ago Rx ~05/12/22 clopidogrel 75 mg tablet 75 mg PO DAILY #90 tabs 03/12/22 05/14/22 2 Days Ago Rx ~05/12/22 furosemide 40 mg tablet 40 mg PO DAILY #90 tabs 03/12/22 05/14/22 2 Days Ago Rx ~05/12/22 pantoprazole 40 mg tablet,delayed 40 mg PO DAILY #90 tabs 03/12/22 05/14/22 2 Days Ago Rx release ~05/12/22 rosuvastatin 20 mg tablet 20 mg PO DAILY #90 tabs 03/12/22 05/14/22 2 Days Ago Rx ~05/12/22 Allergies Allergy/AdvReac Type Severity Reaction Status Date / Time No Known Allergies Allergy Verified 05/13/22 19:52 PFSH Acute PFSH: Medical History Coronary artery disease Emphysema lung History of coronary angiogram Hyperlipidemia Hypertension Nocturnal hypoxemia Obesity Obstructive sleep apnea Polycythemia vera Secondary polycythemia Surgical History H/O angioplasty History of cholecystectomy Family History Grandmother Clotting disorder Cancer Dementia Diabetes Grandmother No problems noted. Grandfather Stroke Other Hyperlipidemia Hypertension Social History Smoking and tobacco status: current every day smoker cigarettes Packs smoked per day: 0.5 Years cigarettes smoked: 20 [ Other cigarette details: started at age 15.] Alcohol intake: never Female Reproductive History: Date of last menstrual period: 02/23/22 Vitals/I&O/Wt Last Vital Signs Temp 98.1 F 05/14/22 03:36 Pulse 52 L 05/14/22 03:36 Resp 14 05/14/22 03:41 BP 137/77 05/14/22 03:36 Pulse Ox 96 05/14/22 03:36 O2 Del Method 05/14/22 03:36 05/13/22 05/13/22 05/14/22 14:59 22:59 06:59 Intake Total 50 / 50 0 / 50 Output Total 50 / 50 Balance 50 / 50 -50 / 0 Weight last 48 hrs Weight 243 lb Physical Exam Const: COMMON NORMALS: no acute distress, alert and well nourished GENERAL APPEARANCE: well kempt and well developed ORIENTATION/CONSCIOUSNESS: not confused HENMT: COMMON NORMALS: normocephalic HEAD & SCALP: normal to inspection and normocephalic Eye: COMMON NORMALS: conjunctivae normal and no scleral icterus CONJUNCTIVA: Yes conjunctivae normal Neck/C-Spine: GENERAL: Yes normal visual inspection Lymph: OTHER: No lymphedema or palpable groin lymph nodes Chest: OTHER: Normal chest movement Resp: COMMON NORMALS: normal respiratory effort EFFORT & INSPECTION: Yes able to speak in complete sentences, No labored and No Actively coughing Cardio: OTHER: Regular rate and rhythm GI: OTHER: Tender left upper quadrant and left lower quadrant : COMMON NORMALS: Yes normal external appearance OTHER: Bladder nondistended Back/Pelvis: OTHER: Left CVA tenderness Extremity: COMMON NORMALS: no clubbing, cyanosis or edema Neuro: COMMON NORMALS: no focal motor deficits SENSORIUM/ORIENTATION: Yes alert Psych: COMMON NORMALS: mental status grossly normal APPEARANCE: Yes grossly normal and Yes well kempt ATTITUDE: Yes calm and Yes engaged Skin: COMMON NORMALS: no rashes or lesions noted and no jaundice GENERAL SKIN EXAM: no rashes or lesions noted Data 05/13/22 20:45 05/13/22 20:45 A&P Assessment and plan (1) Calculus of proximal left ureter: 5 mm left proximal ureteral stone with obstruction on CT scan last night. Does have cystitis but no evidence of systemic infection yet. Has been treated with antibiotics. To the OR urgently/emergently for stent placement (2) Hydronephrosis, left: Secondary to left (3) Acute cystitis without hematuria: No systemic UTI symptoms (4) Coronary artery disease: Status post coronary artery stenting with no ischemic pain. (5) Obesity: (6) Emphysema lung: (7) H/O angioplasty: Plan See HPI Attestations Medical Necessity Statement*: Left proximal ureteral stone with UTI. Required surgical stenting. 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
--- NOTE | 2022-05-14 07:01 | PM.OP ---
Operative Report Date of procedure: May 14, 2022 Pre-op diagnosis: Left proximal ureteral stone with obstruction and UTI Post-op diagnosis: Left proximal ureteral stone with obstruction and UTI Procedure done: 1. Cystoscopy, LEFT retrograde, stent (6 [place]ar[place]uan by 26 cm double-pigtail without string) Implants: Left ureteral stent Specimens removed/disposition: None Pathology: None Surgeon: Loni Estimated blood loss: None Urine output: Not measured Complications: None Findings: Anesthesia: General Condition: Stable Disposition: PACU Intraoperative findings: Retrograde confirmed stone in the same position. 6 [place] by 26 cm double-pigtail stent left indwelling. No string. Stable throughout the procedure. CYSTITIS CYSTICA Brief History: Trupti is a very pleasant 37-year-old white female who I evaluated for the first time this morning after admission through the emergency department last night for severely symptomatic an obstructing left proximal ureteral stone complicated by acute cystitis. No evidence of sepsis. The stone had been seen in a nonobstructing left lower lobe position on a CT scan a couple of years ago. No other stones noted on CTs. No history of stone passage. Her white count was mildly elevated. She has been hemodynamically stable. It was recommended to have a stent placed for treatment of the obstruction and allow resolution of infection before definitive treatment of the stone with endoscopy sometime next week. She agreed. Procedure: After urgent evaluation examination and obtaining of informed consent she was taken to the operating suite on 05/14/2022 where general anesthesia was administered without difficulty after appropriate timeout was performed, SCDs confirmed to be functioning, preoperative antibiotics administered, beta-stefany protocol confirmed. Prepped and draped in the usual sterile fashion in dorsolithotomy position paying careful attention to avoiding pressure points. 21 Nicaraguan cystoscope with 30 degree lens was introduced into urethra meatus and advanced to the bladder to videoscopy. 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 No stones were seen An 8 [place]araguan cone-tip catheter was intubated into the left ureteral orifice and a gentle left retrograde ureteropyelogram was performed demonstrating: Normal course and caliber of the ureter and a filling defect consistent with a stone seen on CT scan near the left proximal ureter location. The ureter proximal to that was mildly dilated. Minimal pressure was exerted and obtaining the retrograde. Flexible tip guidewire was then easily advanced up the left ureter bypassing the stone and a 6 [place]ar[place]uan by 26 cm double-pigtail stent was advanced over the guidewire through the cystoscope into appropriate position as confirmed via fluoroscopy and cystoscopy. The stent was confirmed to be draining. The bladder was drained and the procedure was completed. She tolerated the procedure well for complications and was awakened in the operating room and returned to the recovery room in stable condition. PLANS: 1. Observe over the day and possibly overnight to confirm no flare of infectious concerns. 2. Discharge on oral antibiotic if she does well. 3. Tentative plans for endoscopic treatment of the stone on 05/21/2022 if she recovers well from the infection. 4. Will need a prolonged course of antibiotics to clear the cystitis cystica
--- NOTE | 2022-05-14 07:03 | SC_ITS ---
WS: [id number] C-ARM RADIOGRAPHS ABDOMEN; 5 IMAGES HISTORY: surgery COMPARISON: None available. Intraoperative imaging during LEFT ureteral stent placement. SC/C-arm FL for Urology IMPRESSION: Intraoperative imaging during LEFT ureteral stent placement.
--- NOTE | 2022-05-14 07:10 | PC.NURSE ---
IV fluids paused. Patient to surgery.
--- NOTE | 2022-05-14 07:17 | ANES.PREANE2 ---
Pre-Anesthetic Assessment Height/Weight: Height 1.65 m Weight 110.223 kg Temp Pulse Resp BP Pulse Ox O2 Del Method 98.0 F 62 17 161/96 96 05/14/22 07:11 05/14/22 07:11 05/14/22 07:11 05/14/22 07:11 05/14/22 07:11 05/14/22 07:11 Operation Date: 05/14/22 07:45 Proposed Procedures p Cystoscopy(Not Applicable) - Gagan Ivey MD s Ureteral Stent Placement(Left) - Gagan Ivey MD s Retrograde Pyelogram(Left) - Gagan Ivey MD Familial anesthetic complications: none Was Beta Darin taken within 24 hours: Yes Was Clonidine taken within 24 hours: N/A Last intake: Intake Last Liquid Date 05/13/22 Last Solid Date 05/13/22 Social Tobacco and No alcohol Exam alert, oriented x 3 and regular rate & rhythm Airway Submandibular: within normal limits Cervical ROM: within normal limits Mallampati: Class II Dentition: chipped Comments: Comments: multiple caries Pulmonary Chronic Obstructive Pulmonary Disease CV/HEM Coronary Artery Disease (LAD stent) and Hypertension PCV GI Gastroesophageal Reflux Disease Metabolic Hyperlipidemia and Morbid Obesity Anesthetic Plan ASA status: 3 Anesthesia: General Medications/Allergies Home Medications Medication Instructions Recorded Confirmed Last Taken Type acetaminophen-pamabrom 500 mg-25 1 tab PO Q6H PRN Pain 03/12/22 05/14/22 Unknown History mg tablet (Midol) aspirin 81 mg tablet,delayed 81 mg PO DAILY #90 tabs 03/12/22 05/14/22 2 Days Ago Rx release ~05/12/22 carvedilol 3.125 mg tablet 3.125 mg PO BID #90 tabs 03/12/22 05/14/22 2 Days Ago Rx ~05/12/22 clopidogrel 75 mg tablet 75 mg PO DAILY #90 tabs 03/12/22 05/14/22 2 Days Ago Rx ~05/12/22 furosemide 40 mg tablet 40 mg PO DAILY #90 tabs 03/12/22 05/14/22 2 Days Ago Rx ~05/12/22 pantoprazole 40 mg tablet,delayed 40 mg PO DAILY #90 tabs 03/12/22 05/14/22 2 Days Ago Rx release ~05/12/22 rosuvastatin 20 mg tablet 20 mg PO DAILY #90 tabs 03/12/22 05/14/22 2 Days Ago Rx ~05/12/22 Allergies Allergy/AdvReac Type Severity Reaction Status Date / Time No Known Allergies Allergy Verified 05/13/22 19:52 Current Medications Generic Name Dose Route Start Last Admin Trade Name Freq PRN Reason Stop Dose Admin Lactated Ringer's 1,000 mls @ 100 mls/hr 05/13/22 22:00 05/14/22 07:11 Lactated Ringers IV Infused .Q10H SURAJ Infusion Morphine Sulfate 4 mg 05/13/22 21:58 05/14/22 03:41 Morphine 4 Mg/Ml Sdv 1 Ml IVP 4 mg Q2H PRN Administration SEVERE PAIN PFSH Anesthesia Medical History Coronary artery disease Emphysema lung History of coronary angiogram Hyperlipidemia Hypertension Nocturnal hypoxemia Obesity Obstructive sleep apnea Polycythemia vera Secondary polycythemia Surgical History H/O angioplasty History of cholecystectomy Family History Grandmother Clotting disorder Cancer Dementia Diabetes Grandmother No problems noted. Grandfather Stroke Other Hyperlipidemia Hypertension Social History Smoking and tobacco status: current every day smoker cigarettes Packs smoked per day: 0.5 Years cigarettes smoked: 20 [ Other cigarette details: started at age 15.] Alcohol intake: never Female Reproductive History Date of last menstrual period: 02/23/22 Data Anesthesia 05/13/22 20:45 05/13/22 20:45 Short CBC 05/13/22 Range/Units 20:45 WBC 13.3 H (4.0-10.0) 10^3/uL Hgb 14.6 (11.5-15.3) g/dL Hct 48.1 H (37.0-47.0) % MCV 78.0 L (81-99) fl Plt Count 705 H (130-400) 10^3/cmm Neut % (Auto) 75.0 % Neut # (Auto) 9.98 H (1.8-7.7) 10^3/uL BMP 05/13/22 20:45 Sodium 140 Potassium 3.8 Chloride 105 Carbon Dioxide 27 BUN 9 Creatinine 1.2 H Glucose 77 Calcium 9.6 Urine 05/13/22 Range/Units 20:45 Urine Color Yellow (Yellow) Urine Appearance Cloudy A (CLEAR) Urine pH 6 (5-7) Ur Specific [place] 1.015 (1.005-1.030) Urine Protein 1+ H (Negative) Urine Glucose (UA) Norm (Normal) Urine Ketones 1+ H (Negative) Urine Nitrate Positive H (Negative) Urine Bilirubin Neg (Negative) Ur Leukocyte Esterase 2+ H (Negative) Urine RBC Too numerous to cnt H (0-2) /hpf Urine WBC Too numerous to cnt H (0-5) /hpf Cardiac Studies: No Data to Display
[2022-05-14] MEDS: sodium chloride 0.9% 1,000 ML 30 ML IV (07:22)
[2022-05-14] MEDS: iohexol 300 mg/mL 50 mL Btl (OR ONLY) XX (07:48)
--- NOTE | 2022-05-14 10:11 | PC.CHAP ---
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 visit [] Patient/Family/Request visit [] Outpatient visit [] Follow-up visit [] Physician referral [] Code/Alert [x] Routine visit [] Staff referral [] Actively dying x[] Patient sleeping [] Family support [] [] Out of room [] Palliative care [] [] Receiving care in room [] Pre-surgical visit [] Trauma [] Long length of stay [] ICU visit [] Other: Relational/Emotional Strength [] Patient feels connected with others/family/visitors/staff [] Distress [] Loneliness/isolation [] Abandonment Spirituality of Patient [] Person of Lelo [] Attends Quaker of their Lelo [] Believes in Prayer [] Reads Bible or Anabaptist materials [] There are Spiritual issues to be addressed Shell Shop Supervisor Interventions [] Prayer [] Active listening [] Non-anxious presence [] Spiritual/emotional support [] Crisis/trauma care [] Spiritual counseling [] Bereavement support [] Provided bereavement packet [] Provided Bible/devotional materials [] Provided toy/stuffed animal, coloring book to patient or family member [] Provided Communion [] Anointing/[place] [] Salvation [] Completed spiritual assessment [] Other: Impact on Illness or Injury [] Angry [] Fearful [] Anxious [] Often cries [] Exhaustion [] Unable to work [] Unable to attend pentecostal [] Unable to walk/stand [] Unable to read [] Unable to drive [] Unable to eat/drink [] Unable to sleep [] Unable to be with family [] Patient intubated [] Other: Summary Time spent with patient
[2022-05-14] MEDS: pantoprazole DR 40 mg Tablet PO (11:43)
[2022-05-14] MEDS: carvedilol 3.125 mg Tablet PO ×2 (11:43→18:25)
[2022-05-14] MEDS: aspirin 81 mg EC Tablet PO (11:43)
[2022-05-14] MEDS: clopidogrel 75 mg Tablet PO (11:44)
[2022-05-14] MEDS: FUROsemide 40 mg Tablet PO (11:44)
[2022-05-14] MEDS: cefTRIAXone 1,000 MG in sodium chloride 0.9% (plus) 50 ML 100 MG IV (11:47)
[2022-05-14] MEDS: lactated ringers 1,000 ML 100 ML IV (11:48)
[2022-05-14] MEDS: HYDROcodone-acetaminophen 5-325 mg Tablet 1 TAB PO ×2 (12:14→20:27)
--- NOTE | 2022-05-14 13:05 | ANE.PACU2 ---
Inpatient post-anesthesia follow up: Airway intact: Yes Vital signs: Temperature 98.2 F Pulse Rate 69 Respiratory Rate 16 Blood Pressure 159/79 Pulse Oximetry 98 Oxygen Delivery Me thod [ Room Air Current Rate & Del sriram] Oxygen Delivery Me thod Room Air Oxygen Flow Rate 6 Fraction of Inspir ed Oxygen Hydration adequate: Yes Nausea and vomiting: No Pain level: 3 Mental status: Baseline
--- NOTE | 2022-05-14 17:30 | PM.MISC ---
Miscellaneous Note Purpose of Documentation: Postoperative check. Reviewed the intraoperative findings with the patient. Is feeling much better. No increasing infectious concerns Still having some flank discomfort with voiding as well as urgency and pressure. Plan: 1. Maintain Rocephin twice daily 2. Plan for discharge tomorrow 3. Because of staying across 2 midnights we will switch to inpatient status.
--- NOTE | 2022-05-14 20:22 | PC.NURSE ---
REPORT TAKEN FROM CATHY DAMICO. PATIENT A&O, VSS. PATIENT REQUESTING PAIN MEDICINE. PATIENT UP TO BATHROOM. NO FURTHER NEEDS AT THIS TIME.
[2022-05-15] VITALS: BP 127/78; PULSE 56; RESP 16; TEMP 36.8; O2SAT 94
[2022-05-15] MEDS: HYDROcodone-acetaminophen 5-325 mg Tablet 1 TAB PO (01:25)
[2022-05-15] MEDS: cefTRIAXone 1,000 MG in sodium chloride 0.9% (plus) 50 ML 50 MG IV (01:25)
[2022-05-15 04:00] VITALS: BP 137/84; PULSE 58; RESP 18; TEMP 36.7; O2SAT 96
[2022-05-15 06:06] VITALS: RESP 16
[2022-05-15] MEDS: morphine 4 mg/mL SDV 1 mL IVP (06:06)
--- NOTE | 2022-05-15 07:35 | PM.DCS ---
Discharge Providers Date of Admission: 05/13/22 22:53 Date of Discharge: May 15, 2022 Attending Provider at Admission: Loni Attending Provider at Discharge: Loni Consults: none Diagnoses at Discharge Discharge Diagnosis (1) Calculus of proximal left ureter: Status: Acute (2) Hydronephrosis, left: Status: Acute (3) Acute cystitis without hematuria: Status: Acute (4) Coronary artery disease: Status: Acute (5) Obesity: Status: Acute (6) Emphysema lung: Status: Acute (7) H/O angioplasty: Status: Acute (8) Cystitis cystica: Status: Acute Reason for Visit Reason for Visit: Left ureteral stone with UTI Hospital Course Hospital Course She was admitted through the emergency department for severe refractory left renal colic from a left proximal ureteral stone and discovery of cystitis picture. No evidence of sepsis or pyelonephritis. No additional renal calculi on CT scan. She was taken to the operating room urgently for a stent placement which went well. An unexpected intraoperative finding was CYSTITIS CYSTICA. There was no clear symptoms that she could identify as cystitis symptoms but has been she says feeling poorly for a while, long before the stone symptoms developed. She was continued on antibiotics through hospital stay after the stent and she was felt to be recovered well enough to continue further convalescence and antibiotic therapy at home. Plans were made for URETEROSCOPY on 05/21/2022. She was discharged in stable condition on the morning of postop day #1. There were no outpatient pharmacies available for filling her discharge prescriptions. Patient was provided SEPTRA DS 1 p.o. for night of discharge (#1 pill) and hydrocodone 5/325 2 pills every 6 hours as needed renal colic (#6 pills). Additional prescriptions were sent to her preferred pharmacy at [facility] in [place] for continuation of medications until surgical procedure 05/21/2022. 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 Mild left hydronephrosis and hydroureter without obstructing lesion. 2. Spleen mildly enlarged at 13 cm. Abdomen/Pelvis CT 05/13/22 21:32 IMPRESSION: 1. Left proximal ureter 5.6 mm calculus with moderate hydronephrosis and hydroureter with perhaps minimal periureteral edema perhaps reflecting associated infection. 2. Left lower lobe atelectasis. 3. Spleen enlarged to 15 cm. 4. Cholecystectomy. C-Arm Fluoroscopy 05/14/22 07:03 IMPRESSION: Intraoperative imaging during LEFT ureteral stent placement. Laboratory Results WBC 13.3 10^3/uL (4.0-10.0) H 05/13/22 20:45 RBC 6.17 10^6/uL (4.1-5.3) H 05/13/22 20:45 Hgb 14.6 g/dL (11.5-15.3) 05/13/22 20:45 Hct 48.1 % (37.0-47.0) H 05/13/22 20:45 MCV 78.0 fl (81-99) L 05/13/22 20:45 MCH 23.7 pg (28.0-34.0) L 05/13/22 20:45 MCHC 30.4 g/dL (30.0-36.0) 05/13/22 20:45 RDW 15.7 % (12.1-15.1) H 05/13/22 20:45 Plt Count 705 10^3/cmm (130-400) H 05/13/22 20:45 MPV 10.2 fL (7.4-10.4) 05/13/22 20:45 Neut % (Auto) 75.0 % 05/13/22 20:45 Lymph % (Auto) 14.7 % 05/13/22 20:45 [place] % (Auto) 7.1 % 05/13/22 20:45 Eos % (Auto) 2.0 % 05/13/22 20:45 Baso % (Auto) 0.8 % 05/13/22 20:45 Neut # (Auto) 9.98 10^3/uL (1.8-7.7) H 05/13/22 20:45 Lymph # (Auto) 2.0 10^3/uL (0.8-4.8) 05/13/22 20:45 [place] # (Auto) 1.0 10^3/uL (0.2-0.9) H 05/13/22 20:45 Eos # (Auto) 0.3 10^3/uL (0.0-0.8) 05/13/22 20:45 Baso # (Auto) 0.1 10^3/uL (0.0-0.1) 05/13/22 20:45 Nucleated RBC % (auto) 0 % 05/13/22 20:45 Nucleated RBCs # 0.0 /100WBC 05/13/22 20:45 Sodium 140 mmol/L (136-145) 05/13/22 20:45 Potassium 3.8 mmol/L (3.5-5.1) 05/13/22 20:45 Chloride 105 mmol/L (98-107) 05/13/22 20:45 Carbon Dioxide 27 mmol/L (22-29) 05/13/22 20:45 Anion Gap 11.8 (5-19) 05/13/22 20:45 BUN 9 mg/dL (6-20) 05/13/22 20:45 Creatinine 1.2 mg/dL (0.5-0.9) H 05/13/22 20:45 GFR Calculation 50.8 mL/min (90-130) L 05/13/22 20:45 Glucose 77 mg/dL (65-115) 05/13/22 20:45 Calculated Osmolality 287 mOsm/kg (285-295) 05/13/22 20: Calcium 9.6 mg/dL (8.5-10.5) 05/13/22 20:45 HCG, Qual Negative (Negative) 05/13/22 20:45 Urine Color Yellow (Yellow) 05/13/22 20:45 Urine Appearance Cloudy (CLEAR) A 05/13/22 20:45 Urine pH 6 (5-7) 05/13/22 20:45 Ur Specific [place] 1.015 (1.005-1.030) 05/13/22 20:45 Urine Protein 1+ (Negative) H 05/13/22 20:45 Urine Glucose (UA) Norm (Normal) 05/13/22 20:45 Urine Ketones 1+ (Negative) H 05/13/22 20:45 Urine Blood 3+ (Negative) H 05/13/22 20:45 Urine Nitrate Positive (Negative) H 05/13/22 20:45 Urine Bilirubin Neg (Negative) 05/13/22 20:45 Urine Urobilinogen 1 mg/dL (Negative) H 05/13/22 20:45 Ur Leukocyte Esterase 2+ (Negative) H 05/13/22 20:45 Urine RBC Too numerous to cnt /hpf (0-2) H 05/13/22 20:45 Urine WBC Too numerous to cnt /hpf (0-5) H 05/13/22 20:45 Ur Squamous Epith Cells 5-10 /hpf (0-5) H 05/13/22 20:45 Amorphous Sediment Not Reportable 05/13/22 20:45 Urine Bacteria 4+ /hpf (NONE) H 05/13/22 20:45 Vitals Last Vital Signs Temp 98.0 F 05/15/22 04:00 Pulse 58 L 05/15/22 04:00 Resp 16 05/15/22 06:06 BP 137/84 05/15/22 04:00 Pulse Ox 96 05/15/22 04:00 O2 Del Method 05/15/22 04:00 O2 Flow Rate 6 05/14/22 08:01 Discharge Plan Discharge Patient Disposition: Home Condition: Stable Prescriptions: New hydrocodone-acetaminophen 5-325 mg tablet 1 - 2 tab PO Q6H PRN (Reason: pain) Qty: 20 0RF sulfamethoxazole-trimethoprim 800-160 mg tablet 1 tab PO BID Qty: 60 6RF Continued Midol 500-25 mg tablet 1 tab PO Q6H PRN (Reason: Pain) carvedilol 3.125 mg tablet 3.125 mg PO BID Qty: 90 1RF clopidogrel 75 mg tablet 75 mg PO DAILY Qty: 90 1RF furosemide 40 mg tablet 40 mg PO DAILY Qty: 90 1RF pantoprazole 40 mg tablet,delayed release (DR/EC) 40 mg PO DAILY Qty: 90 1RF rosuvastatin 20 mg tablet 20 mg PO DAILY Qty: 90 1RF aspirin 81 mg tablet,delayed release (DR/EC) 81 mg PO DAILY Qty: 90 1RF Discharge Orders: Discharge Order (Routine); Ordered 05/15/22 Ordered By: Gagan Ivey Referrals: Gagan Ivey MD [Physician] - 05/21/22 (Outpatient Surgery 05/21/2022. Clinic will call you with time and instructions.) Discharge Diet: Usual diet Discharge Activity: Increase activity as tolerated Patient Instructions: Sulfamethoxazole/Trimethoprim (By mouth), Hydrocodone/Acetaminophen (By mouth), Cystoscopy (GEN), Opioid Safety Activity Restrictions/Additional Instructions: 1. You have been prescribed antibiotics to continue treatment of both the acute infectious concerns at admission and the chronic cystitis discovered on cystoscopy. 2. You can expect to continue to have stent symptoms of urgency, frequency, blood in the urine, some flank pain with movement and voiding. There is some pain medication ordered, use it sparingly. Aleve or ibuprofen may also help. 3. Next 05/21/2022 we will perform a ureteroscopy to go after the stone. Hold your clopidogrel after Thursday's dose. 4. Someone will call you on Thursday afternoon or evening to tell you the time to arrive on Thursday for surgery Discharge Attestations Time Spent in Discharge Care*: greater than 30 min Quality Metrics Clinical Quality Measures [ No reported AMI, CVA or VTE this stay] Coding Level of Care Code Acute Chg FW DC note Diagnoses Calculus of proximal left ureter N20.1 Hydronephrosis, left N13.30 Acute cystitis without hematuria N30.00 Coronary artery disease I25.10 Obesity E66.9 Emphysema lung J43.9 H/O angioplasty Z98.62 Cystitis cystica N30.80
[2022-05-15 08:00] VITALS: BP 131/83; PULSE 42; PULSE 89; RESP 17; TEMP 36.6; O2SAT 94
[2022-05-15] MEDS: atorvastatin 40 mg Tablet 80 MG PO (08:16)
[2022-05-15] MEDS: aspirin 81 mg EC Tablet PO (08:17)
[2022-05-15] MEDS: FUROsemide 40 mg Tablet PO (08:17)
[2022-05-15] MEDS: pantoprazole DR 40 mg Tablet PO (08:18)
[2022-05-15] MEDS: carvedilol 3.125 mg Tablet PO (08:18)
[2022-05-15] MEDS: clopidogrel 75 mg Tablet PO (08:18)
--- NOTE | 2022-05-15 10:06 | PC.NURSE ---
Pt discharges with 1 Bactrim 800mg and 6 Hydrocodone 5/325 from hospital supply d/t local pharmacies closed. Medications counted with patient and MARGAUX Armstrong. Paperwork completed and entered into file.
[2022-05-15 10:09] VITALS: BP 131/83; PULSE 89; RESP 17; TEMP 36.6; O2SAT 94
== END 2022-05-15 10:10 | disposition home or self-care (01) ==
LOC: ER 22:02 → MEDSURG 22:54
PROVIDERS: Urology; Admitting Provider Internal Medicine; Emergency Provider Emergency Medicine; Visit Provider Internal Medicine
PROC: 0TJB8ZZ Inspection of Bladder, Via Natural or Artificial Opening Endoscopic (ICD-10-PCS; CPT 52000; principal; 2022-05-14 07:45)
PROC: (CPT 50605; 2022-05-14 07:45)
PROC: (CPT 74420; 2022-05-14 07:45)
DX: N20.1 Calculus of ureter (principal); N13.30 Unspecified hydronephrosis; N30.00 Acute cystitis without hematuria; I25.10 Atherosclerotic heart disease of native coronary artery without angina pectoris; E66.9 Obesity, unspecified; Z68.41 Body mass index [BMI] 40.0-44.9, adult; J43.9 Emphysema, unspecified; Z98.62 Peripheral vascular angioplasty status; G47.33 Obstructive sleep apnea (adult) (pediatric); E78.5 Hyperlipidemia, unspecified; I10 Essential (primary) hypertension; F17.210 Nicotine dependence, cigarettes, uncomplicated
CPT/HCPCS: 52332; 74176; 76000; 76770; 80048; 81001; 81025; 85025; 87077; 87086; 87186; 96365; 96366; 96375; 99285; C2625; G0378; J0330; J0696; J1100; J1885; J2270; J2405; J2704; J3010; J7030; J7120

== ENCOUNTER 2022-05-21 07:17 | Day surgery (SDC) | payer BC, SELFPAY ==
[2022-05-20 11:42] VITALS: BMI 37.4
[2022-05-21] VITALS (13 sets, daily range): BP systolic 122–146; BP diastolic 72–101; PULSE 65–90; RESP 16–18; TEMP 36.2–36.7; O2SAT 92–98
--- NOTE | 2022-05-21 06:30 | W.PM.OPSUD ---
Surgery/Procedure H&P Update DATE OF PROCEDURE: May 21, 2022 DATE H&P PERFORMED: 05/14/22 H&P UPDATE INFORMATION: I have reviewed H&P completed within last 30 days, I have examined patient prior to procedure, No changes to prior documentation and H&P is in [facility] EMR on date indicated PREOP DIAGNOSIS: Left proximal ureteral stone with UTI status post stenting PLANNED PROCEDURE: Operation Date: 05/21/22 09:15 Proposed Procedures p CYSTOSCOPY LEFT RETROGRADE URETEROSCOPY LASER STENT EXCHANGE [id number] [place] [address] 29397,N13.30,N20.1(Not Applicable) - Gagan Ivey MD s Retrograde Pyelogram(Left) - Gagan Ivey MD s Ureteroscopy(Left) - Gagan Ivey MD s Laser Lithotripsy(Left) - Gagan Ivey MD s Ureteral Stent Exchange(Left) - Gagan Ivey MD
--- NOTE | 2022-05-21 07:56 | XRR_ITS ---
PROCEDURE INFORMATION: Exam: XR Abdomen Exam date and time: 05/21/2022 7:58 AM Age: 37 years old Clinical indication: Screening exam; Other: Pre operative; Prior surgery; Surgery type: Gb; Additional info: Preop left ureteroscopy TECHNIQUE: Imaging protocol: Radiologic exam of the abdomen. Views: Frontal supine view of the abdomen. 1 View. COMPARISON: CT kidney stone [id number] 05/13/2022 9:45 PM FINDINGS: Tubes, catheters and devices: A left ureteral stent projects in satisfactory position. Gastrointestinal tract: Normal. No bowel dilation. Bones/joints: Unremarkable. XR/XR KUB [id number] IMPRESSION: Satisfactory appearance of the left ureteral stent. No acute abnormality.
[2022-05-21 08:39] LABS: OR HCG Qualitative Urine Negative (Negative)
[2022-05-21] MEDS: sodium chloride 0.9% 1,000 ML 30 ML (09:15)
[2022-05-21 09:26] LABS: Anion Gap 13.2 (5-19); Blood Urea Nitrogen 13 mg/dL (6-20); Calcium 10.1 mg/dL (8.5-10.5); Carbon Dioxide 22 mmol/L (22-29); Chloride 104 mmol/L (98-107); Glomerular Filtration Rate 50.8 mL/min (90-130); Glucose 94 mg/dL (65-115); Osmolality Calculated 280 mOsm/kg (285-295); Potassium 4.2 mmol/L (3.5-5.1); Sodium 135 mmol/L (136-145)
--- NOTE | 2022-05-21 10:28 | P.OP_ITS ---
Operative Report Date of procedure: May 21, 2022 Pre-op diagnosis: Left proximal ureteral stone with UTI status post stenting Post-op diagnosis: Left proximal ureteral stone with UTI status post stenting Procedure done: 1. Cystoscopy removal left ureteral stent 2. Left ureterorenoscopy,, laser, stent exchange Implants: Left ureteral stent, 6 [place] Citizen by 26 cm double-pigtail without string Specimens removed/disposition: Stone fragments Pathology: Stone fragments Surgeon: Loni Estimated blood loss: Minimal Urine output: Not measured Complications: None Findings: Anesthesia: General Disposition: PACU Condition: Stable Intraoperative findings: * Small stone in the distal ureter was fragmented completely. * The left proximal ureteral stone was found in the expected position. It was somewhat adherent to the mucosa though not fully impacted and it was completely fragmented with laser lithotripsy. Some smaller fragments migrated into the left renal pelvis and they were also fragmented. * No significant bleeding. * Stent replaced after completion of procedure. Brief History: Trupti is a delightful 37-year-old white female recently diagnosed with UTI (no pyelonephritis) and an obstructing left proximal ureteral stone measuring about 5 mm. No additional stones were seen. She was taken to the operating room urgently at that time because of the UTI and the obstruction and a stent was placed and she is back now for attempt at definitive therapy of the left proximal ureteral stone. Preop KUB today not clearly identify the stone but showed the stent in normal position. Procedure: After routine preoperative evaluation examination and obtaining informed consent she was taken to the operating suite on 05/21/2022 where general anesthesia was administered without difficulty after appropriate timeout was performed, SCDs confirmed to be functioning, preoperative antibiotics administered, beta-stefany protocol confirmed. Prepped and draped in usual sterile fashion in dorsolithotomy position paying careful attention to avoiding pressure points. 21 [place] Citizen cystoscope with 30 degree lens was introduced into the urethra meatus and advanced to the bladder without difficulty. The bladder was systematically examined. Stone was not seen. Stent was in appropriate position. Flexible tip guidewire was then advanced up the left ureter easily bypassing the area of the stone curling in the renal pelvis and the stent was removed to the urethral meatus with grasping forceps and a second guidewire was then passed up the stent without difficulty. 1 wire was secured to the drapes as a safety wire. The offset ureteroscope was advanced over the second wire easily up the LEFT ureter. A small stone was encountered at the junction of the distal and mid ureter and fragmented with a 200 ?m holmium laser fiber. The scope was then passed into the proximal ureter where the stone was encountered in expected position but it was difficult to get a good angle on it with the laser and for that reason wire was replaced and the flexible ureteroscope then passed up the left ureter and the wire removed. With the flexible ureteroscope and angle was achieved where the laser was easily brought to the stone and the stone was fragmented. A few fragments migrated into the renal pelvis and these were also further treated with the laser. Basket was used to pull out a couple of these fragments sent for stone analysis Scope was removed and on final inspection showed the ureter to be in good shape. Based on the impaction site it was decided to replace the stent for at least a week. Cystoscope was then backloaded over the safety wire and a 6 [place] Citizen by 26 cm double-pigtail stent was advanced over the wire through the cystoscope into appropriate position as confirmed via fluoroscopy and cystoscopy. Stent was confirmed to be draining well. The bladder had a few small fragments in it and these were flushed out and sent for stone analysis. Bladder was drained and procedure completed. She tolerated procedure well without complication awakened in the operating room and returned to the recovery room in stable condition. PLANS: 1. Anticipate discharge from outpatient surgery 2. Follow-up late next week for cystoscopy and stent removal in the clinic, no KUB.
--- NOTE | 2022-05-21 10:56 | ANES.PREANE2 ---
Pre-Anesthetic Assessment Height/Weight: Height 1.65 m Weight 102.058 kg O2 Del Method 05/21/22 08:25 Preop Diagnosis: Left proximal ureteral stone with UTI status post stenting Operation Date: 05/21/22 09:15 Proposed Procedures p CYSTOSCOPY LEFT RETROGRADE URETEROSCOPY LASER STENT EXCHANGE [id number] [place] 98149,N13.30,N20.1(Not Applicable) - Gagan Ivey MD s Retrograde Pyelogram(Left) - Gagan Ivey MD s Ureteroscopy(Left) - Gagan Ivey MD s Laser Lithotripsy(Left) - Gagan Ivey MD s Ureteral Stent Exchange(Left) - Gagan Ivey MD Familial anesthetic complications: none Was Beta Darin taken within 24 hours: N/A Was Clonidine taken within 24 hours: N/A Last intake: Intake Last Liquid Date 05/20/22 Last Liquid Time 19:00 Last Solid Date 05/20/22 Last Solid Time 19:00 Social Tobacco and No alcohol Exam alert, oriented x 3, clear to auscultation bilaterally and regular rate & rhythm Airway Mallampati: Class II Dentition: chipped and full Pulmonary Sleep Apnea CV/HEM Hypertension polycythemia vera GI Gastroesophageal Reflux Disease Metabolic Hyperlipidemia and Morbid Obesity Anesthetic Plan ASA status: 2 Anesthesia: General Risk of > 500 ml blood loss (7ml/kg in children): No Medications/Allergies Home Medications Medication Instructions Recorded Confirmed Last Taken Type acetaminophen-pamabrom 500 mg-25 1 tab PO Q6H PRN Pain 03/12/22 05/21/22 05/18/22 History mg tablet (Midol) aspirin 81 mg tablet,delayed 81 mg PO DAILY #90 tabs 03/12/22 05/20/22 05/19/22 Rx release carvedilol 3.125 mg tablet 3.125 mg PO BID #90 tabs 03/12/22 05/20/22 05/19/22 Rx clopidogrel 75 mg tablet 75 mg PO DAILY #90 tabs 03/12/22 05/20/22 05/19/22 Rx furosemide 40 mg tablet 40 mg PO DAILY #90 tabs 03/12/22 05/20/22 05/19/22 Rx pantoprazole 40 mg tablet,delayed 40 mg PO DAILY #90 tabs 03/12/22 05/20/22 05/19/22 Rx release rosuvastatin 20 mg tablet 20 mg PO DAILY #90 tabs 03/12/22 05/20/22 05/19/22 Rx hydrocodone 5 mg-acetaminophen 325 1 - 2 tab PO Q6H PRN pain #20 tabs 05/15/22 05/20/22 05/20/22 Rx mg tablet sulfamethoxazole 800 1 tab PO BID #60 tabs 05/15/22 05/20/22 05/20/22 Rx mg-trimethoprim 160 mg tablet Allergies Allergy/AdvReac Type Severity Reaction Status Date / Time No Known Allergies Allergy Verified 05/20/22 11:33 [facility] Anesthesia Medical History (Updated 05/16/22 @ 00:01 by ) Coronary artery disease Cystitis cystica Emphysema lung History of coronary angiogram Hyperlipidemia Hypertension Nocturnal hypoxemia Obesity Obstructive sleep apnea Polycythemia vera Secondary polycythemia Surgical History H/O angioplasty History of cholecystectomy Family History Grandmother Clotting disorder Cancer Dementia Diabetes Grandmother No problems noted. Grandfather Stroke Other Hyperlipidemia Hypertension Social History Smoking and tobacco status: current every day smoker cigarettes Packs smoked per day: 0.5 Years cigarettes smoked: 20 [ Other cigarette details: started at age 15.] Alcohol intake: never Female Reproductive History Date of last menstrual period: 02/23/22 Data Anesthesia 05/21/22 08:55 BMP 05/21/22 08:55 Sodium 135 L Potassium 4.2 Chloride 104 Carbon Dioxide 22 BUN 13 Creatinine 1.2 H Glucose 94 Calcium 10.1 Cardiac Studies: No Data to Display
[2022-05-21] MEDS: levofloxacin-dextrose 5 % 500 MG/100 ML PREMIX 100 MG IV (11:00)
[2022-05-21] MEDS: ondansetron 2 mg/ML SDV 2 mL 4 MG IVP (12:30)
[2022-05-21] MEDS: fentaNYL 50 mcg/mL INJ 2mL 100 MCG IVP (12:36)
[2022-05-21] MEDS: HYDROcodone-acetaminophen 5-325 mg Tablet 1 TAB PO (13:24)
--- NOTE | 2022-05-21 15:01 | ANE.PACU2 ---
Inpatient post-anesthesia follow up: Airway intact: Yes Vital signs: Temperature 98.0 F Pulse Rate 66 Respiratory Rate 18 Blood Pressure 139/95 Pulse Oximetry 96 Oxygen Delivery Me thod Room Air Oxygen Flow Rate 6 Fraction of Inspir ed Oxygen Hydration adequate: Yes Nausea and vomiting: No Pain level: 1 Mental status: Baseline
[2022-05-23 18:30] LABS: Stone Source LEFT URETER
== END 2022-05-21 13:43 | disposition home or self-care (01) ==
PROVIDERS: Anesthesiology; Visit Provider Urology
PROC: 0TJB8ZZ Inspection of Bladder, Via Natural or Artificial Opening Endoscopic (ICD-10-PCS; CPT 52000; principal; 2022-05-21 09:05)
PROC: 0TJ98ZZ Inspection of Ureter, Via Natural or Artificial Opening Endoscopic (ICD-10-PCS; CPT 52351; 2022-05-21 09:05)
PROC: (CPT 52356; 2022-05-21 09:05)
PROC: (CPT 52356; 2022-05-21 09:05)
DX: N20.1 Calculus of ureter (principal); N39.0 Urinary tract infection, site not specified; G47.30 Sleep apnea, unspecified; I10 Essential (primary) hypertension; K21.9 Gastro-esophageal reflux disease without esophagitis; E78.5 Hyperlipidemia, unspecified; E66.01 Morbid (severe) obesity due to excess calories; Z68.37 Body mass index [BMI] 37.0-37.9, adult; I25.10 Atherosclerotic heart disease of native coronary artery without angina pectoris; J43.9 Emphysema, unspecified; G47.33 Obstructive sleep apnea (adult) (pediatric); F17.210 Nicotine dependence, cigarettes, uncomplicated
CPT/HCPCS: 52356; 36415; 74018; 76000; 80048; 81025; 82365; 84703; 88300; C2625; J1100; J1200; J1956; J2250; J2405; J2704; J2710; J3010; J3490; J7030

== ENCOUNTER 2022-05-28 03:00 | Emergency (ER) | payer BC, SELFPAY ==
[2022-05-28 03:04] VITALS: BP 89/70; PULSE 110; RESP 23; TEMP 36.7; O2SAT 97; BMI 39.9
--- NOTE | 2022-05-28 03:06 | CTR_ITS ---
PROCEDURE INFORMATION: Exam: CT Abdomen And Pelvis Without Contrast Exam date and time: 05/28/2022 3:25 AM Age: 37 years old Clinical indication: Abdominal pain; Prior surgery; Surgery date: 3-7 days post-operative; Surgery type: Left ureteral stent placed on 05/21/2022. Gb; Patient HX: C/O left flank pain with hematuria post ureteral stent placement on 05/21/2022. ; Additional info: L flank pain TECHNIQUE: Imaging protocol: Computed tomography of the abdomen and pelvis without contrast. Radiation optimization: All CT scans at this facility use at least one of these dose optimization techniques: automated exposure control; mA and/or kV adjustment per patient size (includes targeted exams where dose is matched to clinical indication); or iterative reconstruction. COMPARISON: CT kidney stone [id number] 05/13/2022 9:45 PM RADIATION DOSE METRICS: Total DLP (mGy-cm): 860.04 FINDINGS: Tubes, catheters and devices: Interval placement of left double pigtail ureteral stent. Lungs: Left discoid atelectasis and/or scarring. Liver: Normal. No mass. Gallbladder and bile ducts: Stable cholecystectomy. Pancreas: Normal. No ductal dilation. Spleen: 16.7 cm moderate splenomegaly. Adrenal glands: Normal. No mass. Kidneys and ureters: Resolution of left ureteral stone. Continued mild left hydronephrosis. Stomach and bowel: Unremarkable. No obstruction. No mucosal thickening. Appendix: No evidence of appendicitis. Intraperitoneal space: Unremarkable. No free air. No significant fluid collection. Vasculature: Unremarkable. No abdominal aortic aneurysm. Lymph nodes: Unremarkable. No enlarged lymph nodes. Urinary bladder: Unremarkable as visualized. Reproductive: Unremarkable as visualized. Bones/joints: Unremarkable. No acute fracture. Soft tissues: Unremarkable. CT/CT kidney stone [id number] IMPRESSION: 1. 16.7 cm moderate splenomegaly. 2. Interval placement of left double pigtail ureteral stent. 3. Resolution of left ureteral stone. 4. Continued mild left hydronephrosis.
--- NOTE | 2022-05-28 03:14 | ED_ITS ---
HPI - Abdominal Pain General: Chief Complaint: Abdominal Pain Stated Complaint: left side pain, blood in urine post stent Time Seen by Provider: 05/28/22 03:05 Source: patient Mode of arrival: ambulatory Limitations: no limitations History of Present Illness: 37-year-old female has a history of infected kidney stone patient had a stent placed a few weeks back she states that she had a small one placed a week ago by Dr. Ivey is actually scheduled tomorrow to have it removed she states that tonight she has been having severe pain in her left side and some hematuria. States pain sharp in nature rates an 8 out of 10 she denies any vomiting denies any diarrhea. She denies any worsening improving factors. Associated Symptoms: Reports hematuria, nausea and vomiting; Denies chills and fever(s) Related Data: Date of Last Menstrual Period: 03/23/22 Review of Systems Const: Denies: fever(s), chills, body aches or change in appetite Eyes: Denies: blurry vision or eye discomfort ENMT: Denies: throat pain or dental pain Card: Denies: chest pain Resp: Denies: dyspnea GI: Reports: nausea and vomiting : Reports: flank pain and hematuria Musc: Denies: neck pain or back pain Skin/Breast: Denies: rash Neuro: Denies: headache(s) Psych: Denies: depression Thang/Lymph: Denies: easy bruising All/Imm: Denies: urticaria PFSH ED PFSH: Medical History Coronary artery disease Cystitis cystica Emphysema lung History of coronary angiogram Hyperlipidemia Hypertension Nocturnal hypoxemia Obesity Obstructive sleep apnea Polycythemia vera Secondary polycythemia Surgical History H/O angioplasty History of cholecystectomy Family History Grandmother Clotting disorder Cancer Dementia Diabetes Grandmother No problems noted. Grandfather Stroke Other Hyperlipidemia Hypertension Social History Smoking and tobacco status: current every day smoker cigarettes Packs smoked per day: 0.5 Years cigarettes smoked: 20 [ Other cigarette details: started at age 15.] Alcohol intake: never Female Reproductive History: Date of last menstrual period: 03/23/22 Physical Exam Const: COMMON NORMALS: patient oriented x3 HENMT: COMMON NORMALS: normocephalic and atraumatic HEAD & SCALP: normocephalic and atraumatic Eye: COMMON NORMALS: Equal, round and reactive pupils present and EOMs intact bilaterally PUPIL: Yes Equal, round and reactive pupils present Neck/C-Spine: COMMON NORMALS: full ROM and supple Chest: COMMONS NORMALS: normal inspection of the chest and normal palpation of entire chest wall Resp: COMMON NORMALS: normal respiratory effort, No retractions, No use of accessory muscles and clear to auscultation bilaterally AUSCULTATION: clear to auscultation bilaterally Cardio: COMMON NORMALS: regular rhythm and No murmurs present (Cardio) RATE: tachycardic RHYTHM: regular rhythm GI: COMMON NORMALS: Normal to inspection, nondistended, normoactive bowel sounds present, Soft to palpation, non-tender and no masses PALPATION: Yes Soft to palpation Extremity: COMMON NORMALS: normal to inspection and full ROM Neuro: COMMON NORMALS: patient oriented x3, moves all extremities and no focal motor deficits Psych: COMMON NORMALS: mental status grossly normal, Normal thought process present and cooperative THOUGHT PROCESS: Normal thought process present Skin: COMMON NORMALS: no rashes or lesions noted and no wounds GENERAL SKIN EXAM: no rashes or lesions noted Course Vital Signs: Vital signs: Vital Signs Temperature 98.1 F 05/28/22 03:04 Pulse Rate 95 05/28/22 03:25 Respiratory Rate 20 H 05/28/22 04:03 Blood Pressure 141/97 05/28/22 03:25 Pulse Oximetry 97 05/28/22 03:25 Oxygen Delivery Me thod 05/28/22 03:04 MDM - Abdominal Pain Medical Decision Making Patient presents here with flank pain likely from her stent CT shows no signs of a stone at this time mild hydro urinalysis shows no signs of infection she has follow-up with Dr. Ivey tomorrow her pain is much improved here we will place her on hydrocodone she is to follow-up as scheduled tomorrow return if worsening. Lab Data 05/28/22 03:23 05/28/22 03:23 Labs/Radiology: Radiology Impressions Abdomen/Pelvis CT 05/28/22 03:06 IMPRESSION: 1. 16.7 cm moderate splenomegaly. 2. Interval placement of left double pigtail ureteral stent. 3. Resolution of left ureteral stone. 4. Continued mild left hydronephrosis. Laboratory Results WBC 12.7 10^3/uL (4.0-10.0) H 05/28/22 03:23 RBC 5.94 10^6/uL (4.1-5.3) H 05/28/22 03:23 Hgb 14.1 g/dL (11.5-15.3) 05/28/22 03:23 Hct 44.3 % (37.0-47.0) 05/28/22 03:23 MCV 74.6 fl (81-99) L 05/28/22 03:23 MCH 23.7 pg (28.0-34.0) L 05/28/22 03:23 MCHC 31.8 g/dL (30.0-36.0) 05/28/22 03:23 RDW 15.8 % (12.1-15.1) H 05/28/22 03:23 Plt Count 732 10^3/cmm (130-400) H 05/28/22 03:23 MPV 10.1 fL (7.4-10.4) 05/28/22 03:23 Neut % (Auto) 69.7 % 05/28/22 03:23 Lymph % (Auto) 18.1 % 05/28/22 03:23 Frederick % (Auto) 6.0 % 05/28/22 03:23 Eos % (Auto) 4.9 % 05/28/22 03:23 Baso % (Auto) 0.8 % 05/28/22 03:23 Neut # (Auto) 8.88 10^3/uL (1.8-7.7) H 05/28/22 03:23 Lymph # (Auto) 2.3 10^3/uL (0.8-4.8) 05/28/22 03:23 Frederick # (Auto) 0.8 10^3/uL (0.2-0.9) 05/28/22 03:23 Eos # (Auto) 0.6 10^3/uL (0.0-0.8) 05/28/22 03:23 Baso # (Auto) 0.1 10^3/uL (0.0-0.1) 05/28/22 03:23 Nucleated RBC % (auto) 0 % 05/28/22 03:23 Nucleated RBCs # 0.0 /100WBC 05/28/22 03:23 Sodium 136 mmol/L (136-145) 05/28/22 03:23 Potassium 3.9 mmol/L (3.5-5.1) 05/28/22 03:23 Chloride 104 mmol/L (98-107) 05/28/22 03:23 Carbon Dioxide 21 mmol/L (22-29) L 05/28/22 03:23 Anion Gap 14.9 (5-19) 05/28/22 03:23 BUN 8 mg/dL (6-20) 05/28/22 03:23 Creatinine 1.1 mg/dL (0.5-0.9) H 05/28/22 03:23 GFR Calculation 56.2 mL/min (90-130) L 05/28/22 03:23 Glucose 103 mg/dL (65-115) 05/28/22 03:23 Calculated Osmolality 281 mOsm/kg (285-295) L 05/28/22 03:23 Calcium 9.8 mg/dL (8.5-10.5) 05/28/22 03:23 Total Bilirubin 0.2 mg/dL (0.15-1.2) 05/28/22 03:23 AST 23 U/L (0-32) 05/28/22 03:23 ALT 35 U/L (0-33) H 05/28/22 03:23 Alkaline Phosphatase 131 U/L (35-105) H 05/28/22 03:23 Total Protein 7.3 g/dL (6.6-8.7) 05/28/22 03:23 Albumin 4.2 g/dL (3.5-5.2) 05/28/22 03:23 Globulin 3.1 g/dL (1.3-4.6) 05/28/22 03:23 Lipase 21 U/L (13-60) 05/28/22 03:23 Urine Color Red (Yellow) 05/28/22 03:56 Urine Appearance Cloudy (CLEAR) A 05/28/22 03:56 Urine pH 6 (5-7) 05/28/22 03:56 Ur Specific [place] 1.020 (1.005-1.030) 05/28/22 03:56 Urine Protein 2+ (Negative) H 05/28/22 03:56 Urine Glucose (UA) Norm (Normal) 05/28/22 03:56 Urine Ketones Negative (Negative) 05/28/22 03:56 Urine Blood 3+ (Negative) H 05/28/22 03:56 Urine Nitrate Negative (Negative) 05/28/22 03:56 Urine Bilirubin Neg (Negative) 05/28/22 03:56 Urine Urobilinogen Norm mg/dL (Negative) 05/28/22 03:56 Ur Leukocyte Esterase 2+ (Negative) H 05/28/22 03:56 Urine RBC Too numerous to cnt /hpf (0-2) H 05/28/22 03:56 Urine WBC Too numerous to cnt /hpf (0-5) H 05/28/22 03:56 Ur Squamous Epith Cells 0-4 /hpf (0-5) H 05/28/22 03:56 Amorphous Sediment Not Reportable 05/28/22 03:56 Urine Bacteria 2+ /hpf (NONE) H 05/28/22 03:56 Discharge Plan Discharge Patient Disposition: Home Clinical Impression: Acute left flank pain Condition: Stable Prescriptions: New hydrocodone-acetaminophen 5-325 mg tablet 1 tab PO Q6H PRN (Reason: pain) Qty: 14 0RF ondansetron 4 mg tablet,disintegrating 4 mg PO Q6H PRN (Reason: nausea and vomiting) Qty: 14 0RF No Action Midol 500-25 mg tablet 1 tab PO Q6H PRN (Reason: Pain) carvedilol 3.125 mg tablet 3.125 mg PO BID Qty: 90 1RF clopidogrel 75 mg tablet 75 mg PO DAILY Qty: 90 1RF furosemide 40 mg tablet 40 mg PO DAILY Qty: 90 1RF pantoprazole 40 mg tablet,delayed release (DR/EC) 40 mg PO DAILY Qty: 90 1RF rosuvastatin 20 mg tablet 20 mg PO DAILY Qty: 90 1RF aspirin 81 mg tablet,delayed release (DR/EC) 81 mg PO DAILY Qty: 90 1RF hydrocodone-acetaminophen 5-325 mg tablet 1 - 2 tab PO Q6H PRN (Reason: pain) Qty: 20 0RF sulfamethoxazole-trimethoprim 800-160 mg tablet 1 tab PO BID Qty: 60 6RF Discharge Orders: Discharge ED (Routine); Ordered 05/28/22 Ordered By: Astrid Paris Referrals: Gagan Ivey MD [Physician] - 1-3 days Discharge Diet: Advance as tolerated Discharge Activity: Resume usual activity Patient Instructions: Flank Pain (ED), Opioid Safety Coding Level of Care Code ED Account Services Manager for Chg Fwd Exam Comprehensive
--- NOTE | 2022-05-28 03:14 | ECG_ITS ---
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 Measurements Intervals Bernice Rate: 93 P: 45 LA: 170 QRS: 47 QRSD: 82 T: 48 QT: 344 QTc: 430 Interpretive Statements SINUS RHYTHM POSSIBLE LEFT ATRIAL ENLARGEMENT [-0.1mV P-WAVE IN V1/V2] SEPTAL MYOCARDIAL INFARCTION , OF INDETERMINATE AGE [40+ ms Q WAVE IN V1/V2] MODERATE T-WAVE ABNORMALITY, CONSIDER ANTERIOR ISCHEMIA [-0.1+ mV T-WAVE IN V3/V4] Compared to ECG 05/06/2019 16:35:30 Myocardial infarct finding now present T-wave abnormality now present Possible ischemia now present Sinus bradycardia no longer present Sinus arrhythmia no longer present Electronically Signed On 05-28-2022 16:14:27 BLEACH PLANT OPERATOR by Pradeep Noel M.D. [email or web address]
[2022-05-28 03:25] VITALS: BP 141/97; PULSE 95; RESP 16; O2SAT 97
[2022-05-28 03:28] LABS: Basophils # 0.1 10^3/uL (0.0-0.1); Basophils % 0.8 %; Eosinophils # 0.6 10^3/uL (0.0-0.8); Eosinophils % 4.9 %; Hematocrit 44.3 % (37.0-47.0); Hemoglobin 14.1 g/dL (11.5-15.3); Lymphocytes # 2.3 10^3/uL (0.8-4.8); Lymphocytes % 18.1 %; Mean Corpuscular HGB Conc 31.8 g/dL (30.0-36.0); Mean Corpuscular Hemoglobin 23.7 pg (28.0-34.0); Mean Corpuscular Volume 74.6 fl (81-99); Mean Platelet Volume 10.1 fL (7.4-10.4); Monocytes # 0.8 10^3/uL (0.2-0.9); Neutrophils # 8.88 10^3/uL (1.8-7.7); Neutrophils % 69.7 %; Nucleated Red Blood Cells % 0 %; Platelet Count 732 10^3/cmm (130-400); Red Blood Count 5.94 10^6/uL (4.1-5.3); Red Cell Distribution Width 15.8 % (12.1-15.1); White Blood Count 12.7 10^3/uL (4.0-10.0)
[2022-05-28] MEDS: ondansetron 2 mg/ML SDV 2 mL 4 MG IVP (03:28)
[2022-05-28] MEDS: sodium chloride 0.9% 1,000 ML 999 ML IV (03:28)
[2022-05-28] MEDS: HYDROmorphone 1 mg/mL INJ 1 mL IVP ×2 (03:28→04:03)
[2022-05-28 03:47] LABS: Alanine Aminotransferase 35 U/L (0-33); Albumin Level 4.2 g/dL (3.5-5.2); Alkaline Phosphatase 131 U/L (35-105); Anion Gap 14.9 (5-19); Aspartate Amino Transferase 23 U/L (0-32); Blood Urea Nitrogen 8 mg/dL (6-20); Calcium 9.8 mg/dL (8.5-10.5); Carbon Dioxide 21 mmol/L (22-29); Chloride 104 mmol/L (98-107); Globulin 3.1 g/dL (1.3-4.6); Glomerular Filtration Rate 56.2 mL/min (90-130); Glucose 103 mg/dL (65-115); Lipase 21 U/L (13-60); Osmolality Calculated 281 mOsm/kg (285-295); Potassium 3.9 mmol/L (3.5-5.1); Sodium 136 mmol/L (136-145); Total Bilirubin 0.2 mg/dL (0.15-1.2); Total Protein 7.3 g/dL (6.6-8.7)
[2022-05-28 04:03] VITALS: RESP 20
[2022-05-28 04:13] LABS: Add Urine Culture? Yes; Add Urine Microscopic? YES; Bacteria Urine 2+ /hpf; Bilirubin Urine Neg (Negative); Blood Urine 3+ (Negative); Glucose Urine UA Norm (Normal); Ketones Urine Negative (Negative); Leukocyte Esterase Urine 2+ (Negative); Nitrate Urine Negative (Negative); Protein Urine 2+ (Negative); RBC Urine TOO NUMEROUS TO CNT /hpf (0-2); Squamous Epithelial Cell Urine 0-4 /hpf (0-5); Urine Appearance Cloudy (CLEAR); Urine Color Red (Yellow); Urobilinogen Urine Norm (Negative); WBC Urine TOO NUMEROUS TO CNT /hpf (0-5); pH Urine 6 (5-7)
[2022-05-28 04:34] VITALS: BP 139/91; PULSE 83; RESP 20; O2SAT 97
[2022-05-28] MEDS: HYDROcodone-acetaminophen 5-325 mg Tablet 1 TAB PO (04:34)
== END 2022-05-28 05:45 | disposition home or self-care (01) ==
PROVIDERS: Emergency Provider Emergency Medicine
DX: R10.9 Unspecified abdominal pain (principal); Z79.02 Long term (current) use of antithrombotics/antiplatelets; Z79.82 Long term (current) use of aspirin; I25.10 Atherosclerotic heart disease of native coronary artery without angina pectoris; J43.9 Emphysema, unspecified; E78.5 Hyperlipidemia, unspecified; I10 Essential (primary) hypertension; F17.210 Nicotine dependence, cigarettes, uncomplicated
CPT/HCPCS: 74176; 80053; 81001; 83690; 85025; 87086; 93005; 96360; 99285; J1170; J2405; J7030

== ENCOUNTER → 2022-05-29 14:55 | Outpatient (BNVA) | payer BC, SELFPAY | PROVIDERS: Visit Provider Urology | DX: N30.80 Other cystitis without hematuria (principal); N20.9 Urinary calculus, unspecified; Z96.0 Presence of urogenital implants; N30.20 Other chronic cystitis without hematuria | CPT/HCPCS: 81003; 87086 ==

== ENCOUNTER 2022-12-03 16:42 | Emergency (ER) | payer SELFPAY ==
[2022-12-03 16:43] VITALS: BP 136/72; PULSE 104; RESP 17; TEMP 36.7; O2SAT 98; BMI 36.6
--- NOTE | 2022-12-03 17:10 | CTR_ITS ---
PROCEDURE INFORMATION: Exam: CT Abdomen And Pelvis Without Contrast Exam date and time: 12/03/2022 5:56 PM Age: 37 years old Clinical indication: Abdominal pain; Flank; Upper; Prior surgery; Surgery date: 6+ months; Surgery type: Ashley, stent; Additional info: Flank pain TECHNIQUE: Imaging protocol: Computed tomography of the abdomen and pelvis without contrast. Axial, coronal and sagittal reformatted images were created and reviewed. Radiation optimization: All CT scans at this facility use at least one of these dose optimization techniques: automated exposure control; mA and/or kV adjustment per patient size (includes targeted exams where dose is matched to clinical indication); or iterative reconstruction. REPORTING DATA: Count of CT and Cardiac NM exams in prior 12 months: This patient has received 2 known CTs and 0 known cardiac nuclear medicine studies in the 12 months prior to the current study. COMPARISON: CT kidney stone [id number] 05/28/2022 3:25 AM RADIATION DOSE METRICS: Total DLP (mGy-cm): 806.13 FINDINGS: Liver: Unremarkable. Gallbladder and bile ducts: Status post cholecystectomy. No biliary ductal dilatation. Pancreas: Unremarkable. Spleen: Mild splenomegaly. Adrenal glands: Normal. No mass. Kidneys and ureters: Bilateral renal cysts, measuring up to 1.8 cm on the right (no follow-up is indicated based on the imaging appearance). No radiodense calculi. No hydronephrosis. Stomach and bowel: No bowel wall thickening. No obstruction. No pneumatosis. Appendix: Normal. Intraperitoneal space: Trace nonspecific free pelvic fluid, likely physiologic. No organized fluid collection. No free air. Vasculature: Upper abdominal varices. No aortic aneurysm. Lymph nodes: No pathologically enlarged lymph nodes. Urinary bladder: Unremarkable as visualized. Reproductive: 4.7 x 4.1 cm left adnexal cystic lesion. Bones/joints: No acute osseous abnormality. Soft tissues: Unremarkable. CT/CT kidney stone [id number] IMPRESSION: 1. 4.7 x 4.1 cm left adnexal cystic lesion. If clinically indicated, pelvic ultrasound may be obtained for further evaluation. 2. Additional findings, as above. COMMENTS: Consistent with the [employer]'s Incidental Findings Committee white paper (J Am Madiha Radiol 2018): Any incidental renal lesion less than 1 cm or classified as too small to characterize, or any incidental cystic renal lesion characterized as simple-appearing, is likely benign. No follow-up imaging is recommended for these lesions per consensus recommendations based on imaging criteria.
[2022-12-03 17:19] VITALS: RESP 14; O2SAT 95
[2022-12-03] MEDS: morphine 4 mg/mL SDV 1 mL IVP ×2 (17:19→19:35)
[2022-12-03] MEDS: sodium chloride 0.9% 1,000 ML 999 ML IV (17:19)
[2022-12-03 17:20] VITALS: BP 151/95; PULSE 87; RESP 16; O2SAT 95
[2022-12-03 17:45] LABS: HCG, Serum Qual Negative (Negative)
[2022-12-03 18:31] VITALS: BP 121/70; PULSE 60; RESP 14; O2SAT 96
[2022-12-03 18:41] LABS: Add Urine Microscopic? NO; Charge for UA Resulting for Rev
[2022-12-03 18:48] LABS: Bilirubin Urine Neg (Negative); Blood Urine Neg (Negative); Glucose Urine UA Norm (Normal); Ketones Urine Negative (Negative); Leukocyte Esterase Urine Negative (Negative); Nitrate Urine Negative (Negative); Protein Urine Neg (Negative); Urine Appearance Clear (CLEAR); Urine Color Yellow (Yellow); Urobilinogen Urine Norm (Negative); pH Urine 5 (5-7)
--- NOTE | 2022-12-03 18:49 | W.ED.ABDPA2 ---
HPI - Abdominal Pain General: Chief Complaint: Abdominal Pain Stated Complaint: possible kidney stone Time Seen by Provider: 12/03/22 17:08 History of Present Illness: Patient presents to the ER with complaints of urinary tract like pain and flank pain radiating to the groin for the last week. Patient states she has had seen Dr. Ivey urology for this in the past and she did have a stone that had to be lithotripsied and stented. She was on long-term antibiotics was stopped them in August secondary to cost. Patient states this pain feels about the same as it did back then but may be a bit worse MD elicited complaint: flank pain Pertinent past history: kidney stones Onset (ago): week(s) (1 week ago) Pain Consistency: constant and colicky Location: L flank and Pelvis Severity: moderate Quality: cramping and stabbing Radiation: suprapubic Exacerbating factors: nothing Relieving factors: nothing Review of Systems General: Reports: 10 or more systems reviewed and unremarkable except in HPI and below PFSH ED PFSH: Medical History Chronic cystitis Coronary artery disease Cystitis cystica Emphysema lung History of coronary angiogram Hyperlipidemia Hypertension Nocturnal hypoxemia Obesity Obstructive sleep apnea Polycythemia vera Secondary polycythemia Urolithiasis Surgical History H/O angioplasty History of cholecystectomy Family History Grandmother Clotting disorder Cancer Dementia Diabetes Grandmother No problems noted. Grandfather Stroke Other Hyperlipidemia Hypertension Social History Smoking and tobacco status: current every day smoker cigarettes Packs smoked per day: 0.5 Years cigarettes smoked: 20 [ Other cigarette details: started at age 15.] Alcohol intake: never Marital status: Current occupational status: employed Physical Exam Const: COMMON NORMALS: no acute distress, average body habitus, patient oriented x3, no limitations, healthy appearing, alert and well nourished HENMT: COMMON NORMALS: normocephalic, atraumatic, hearing grossly normal bilaterally, external ears normal, Normal external nose present and moist oral mucous membranes HEAD & SCALP: normocephalic and atraumatic NOSE: Normal external nose present EXTERNAL EAR: Yes external ears normal Neck/C-Spine: COMMON NORMALS: full ROM, no lymphadenopathy, supple, no meningeal signs, no JVD and Thyroid normal THYROID: Thyroid normal Chest: COMMONS NORMALS: normal inspection of the chest and normal palpation of entire chest wall Resp: COMMON NORMALS: normal respiratory effort, No retractions, No use of accessory muscles and clear to auscultation bilaterally AUSCULTATION: clear to auscultation bilaterally Cardio: COMMON NORMALS: no JVD, regular rate, regular rhythm, S1 normal heart sound present, S2 normal heart sound present, No gallops present (Cardio), No clicks present (Cardio), No murmurs present (Cardio) and No rub (Cardio) RATE: regular rate RHYTHM: regular rhythm HEART SOUNDS: S1 normal heart sound present and S2 normal heart sound present GI: COMMON NORMALS: Normal to inspection, nondistended, normoactive bowel sounds present, Soft to palpation, non-tender, No hepatosplenomegaly present and no masses PALPATION: Yes Soft to palpation and Yes No hepatosplenomegaly present : COMMON NORMALS: Yes no CVA tenderness BLADDER/KIDNEY EXAM: Yes no CVA tenderness Back/Pelvis: COMMON NORMALS: no CVA tenderness Neuro: COMMON NORMALS: patient oriented x3 SENSORIUM/ORIENTATION: Yes alert MENINGEAL SIGNS: Yes no meningeal signs Course Vital Signs: Vital signs: Vital Signs Temperature 98.1 F 12/03/22 16:43 Pulse Rate 60 12/03/22 18:31 Respiratory Rate 14 12/03/22 18:31 Blood Pressure 121/70 12/03/22 18:31 Pulse Oximetry 96 12/03/22 18:31 Oxygen Delivery Me thod Room Air 12/03/22 18:31 MDM - Abdominal Pain Medical Decision Making Patient presents to the ER with complaints of left flank pain left pelvic pain. UA was obtained which was negative. Had abdominal pelvic CT was obtained which showed a 4.7 x 4.1 cm left adnexal cyst. Patient was given 2 doses of 4 mg morphine each in the ER for pain control. Patient be discharged on hydrocodone and a consult to case management for referral to TRUCK SALES MANAGER has been made. Differential Diagnosis Likely calculus of kidney; Unlikely abdominal pain, acute appendicitis, constipation, diverticulitis, endometriosis, gastroenteritis, pancreatitis or small bowel obstruction Medical Records I reviewed the patient's medical records. Lab Data I reviewed the patient's lab results. Labs/Radiology: Radiology Impressions Abdomen/Pelvis CT 12/03/22 17:10 IMPRESSION: 1. 4.7 x 4.1 cm left adnexal cystic lesion. If clinically indicated, pelvic ultrasound may be obtained for further evaluation. 2. Additional findings, as above. COMMENTS: Consistent with the [employer]'s Incidental Findings Committee white paper (J Am Madiha Radiol 2018): Any incidental renal lesion less than 1 cm or classified as too small to characterize, or any incidental cystic renal lesion characterized as simple-appearing, is likely benign. No follow-up imaging is recommended for these lesions per consensus recommendations based on imaging criteria. Laboratory Results HCG, Qual Negative (Negative) 12/03/22 17:12 Urine Color Yellow (Yellow) 12/03/22 18:31 Urine Appearance Clear (CLEAR) 12/03/22 18:31 Urine pH 5 (5-7) 12/03/22 18:31 Ur Specific [place] 1.020 (1.005-1.030) 12/03/22 18:31 Urine Protein Neg (Negative) 12/03/22 18:31 Urine Glucose (UA) Norm (Normal) 12/03/22 18:31 Urine Ketones Negative (Negative) 12/03/22 18:31 Urine Blood Neg (Negative) 12/03/22 18:31 Urine Nitrate Negative (Negative) 12/03/22 18:31 Urine Bilirubin Neg (Negative) 12/03/22 18:31 Urine Urobilinogen Norm mg/dL (Negative) 12/03/22 18:31 Ur Leukocyte Esterase Negative (Negative) 12/03/22 18:31 Discharge Plan Discharge Patient Disposition: Home Clinical Impression: Pelvic pain, Adnexal cyst Condition: Stable Prescriptions: New hydrocodone-acetaminophen 5-325 mg tablet 1 tab PO Q8H PRN (Reason: pain) Qty: 14 0RF No Action Midol 500-25 mg tablet 1 tab PO Q6H PRN (Reason: Pain) carvedilol 3.125 mg tablet 3.125 mg PO BID Qty: 90 1RF clopidogrel 75 mg tablet 75 mg PO DAILY Qty: 90 1RF furosemide 40 mg tablet 40 mg PO DAILY Qty: 90 1RF pantoprazole 40 mg tablet,delayed release (DR/EC) 40 mg PO DAILY Qty: 90 1RF rosuvastatin 20 mg tablet 20 mg PO DAILY Qty: 90 1RF aspirin 81 mg tablet,delayed release (DR/EC) 81 mg PO DAILY Qty: 90 1RF cefuroxime axetil 500 mg tablet 500 mg PO BID Qty: 60 3RF hydrocodone-acetaminophen 5-325 mg tablet 1 - 2 tab PO Q6H PRN (Reason: pain) Qty: 20 0RF hydrocodone-acetaminophen 5-325 mg tablet 1 tab PO Q6H PRN (Reason: pain) Qty: 14 0RF ondansetron 4 mg tablet,disintegrating 4 mg PO Q6H PRN (Reason: nausea and vomiting) Qty: 14 0RF Discharge Orders: Discharge ED (Routine); Ordered 12/03/22 Ordered By: Jonas Manzo Patient Instructions: Ovarian Cyst (ED), Pelvic Pain in Women (ED), Pain Management, Opioid Safety Activity Restrictions/Additional Instructions: Please take the pain medicine as prescribed. You have been referred to case management for referral to TRUCK SALES MANAGER please anticipate their call tomorrow to set up an appointment. Coding Level of Care Code ED Orthopaedic Nurse for George Geiger
[2022-12-03 20:26] VITALS: BP 120/86; PULSE 68; RESP 15; O2SAT 98
--- NOTE | 2022-12-04 08:13 | DCPLANNER ---
Addendum entered by Yoko Amaya 12/26/22 11:01: This appointment was rescheduled Addendum entered by Yoko Amaya 12/05/22 11:31: Patient has a follow up appointment scheduled for Saturday, December 24, 2022 at 2:[address] Friedman at [facility]. Original Note: woods manager had message to schedule a follow up appointment for patient with [employer] BRANCH MANAGER. woods manager sent patients information to the front office staff at [facility]. Patients information will be printed and reviewed. Clinic will call patient with appointment information.
--- NOTE | 2022-12-04 08:51 | DCPLANNER ---
digital media manager called patient due to no primary care physician - patient declines at this time, due to no insurance. digital media manager did inform patient of [facility] where patient can apply for sliding scale.
== END 2022-12-03 20:26 | disposition home or self-care (01) ==
PROVIDERS: Family Medicine; Emergency Provider Emergency Medicine
DX: N83.292 Other ovarian cyst, left side (principal)
CPT/HCPCS: 74176; 81003; 84703; 96361; 96374; 96375; 99285; J2270; J7030

== ENCOUNTER 2023-03-20 06:20 | Emergency (ER) | payer SELFPAY ==
--- NOTE | 2023-03-20 06:24 | W.ED.GENADLT ---
HPI - General Adult General: Chief complaint: Abdominal Pain Stated complaint: bladder pain Time Seen by Provider: 03/20/23 06:23 Source: patient Mode of arrival: ambulatory History of Present Illness: 38-year-old female presents emergency room complaining of bladder cramping and pain dysuria urgency and frequency. States her pain worsens when she coughs no vomiting no diarrhea no flank pain. She is also noticed a increasing nonproductive cough. She is having some urinary incontinence with coughing fits. Onset (ago): hour(s) Location: abdomen (Suprapubic) Severity: mild Quality: burning Pain Consistency: intermittent Relieving factors: none Exacerbating factors: other (Coughing, urination) Associated symptoms: Deny chest pain, confusion, cough, diaphoresis, decreased appetite, dyspnea, fevers/chills, headache(s), malaise, nausea, rash, palpitations, seizures, short of breath, syncope, vomiting or weakness Treatments prior to arrival: none Review of Systems Const: Denies: fever(s), chills, malaise or diaphoresis ENMT: Denies: throat pain, ear or mastoid pain, nasal discharge or nasal congestion Card: Denies: chest pain, palpitations or syncope Resp: Denies: dyspnea GI: Reports: abdominal pain; Denies: nausea or vomiting : Reports: dysuria; Denies: flank pain, difficulty voiding, urinary frequency or urinary urgency Skin/Breast: Denies: rash Neuro: Denies: headache(s) or confusion PFSH ED PFSH: Medical History (Updated 03/20/23 @ 09:22 by Remi Severino DO) Chronic cystitis Coronary artery disease Cystitis cystica Emphysema lung History of coronary angiogram History of placement of stent in LAD coronary artery Hyperlipidemia Hypertension Nocturnal hypoxemia Obesity Obstructive sleep apnea Polycythemia vera Secondary polycythemia Urolithiasis Surgical History (Updated 03/20/23 @ 07:48 by Remi Severino DO) H/O angioplasty History of cholecystectomy S/P ureteral stent placement Family History Grandmother Clotting disorder Cancer Dementia Diabetes Grandmother No problems noted. Grandfather Stroke Other Hyperlipidemia Hypertension Social History Smoking and tobacco status: current every day smoker cigarettes Packs smoked per day: 0.5 Years cigarettes smoked: 20 [ Other cigarette details: started at age 15.] Alcohol intake: never Marital status: Current occupational status: employed Physical Exam Const: GENERAL APPEARANCE: cooperative and comfortable ORIENTATION/CONSCIOUSNESS: Yes awake, Yes oriented to person, Yes oriented to place and Yes oriented to time HENMT: COMMON NORMALS: normocephalic, atraumatic and hearing grossly normal bilaterally HEAD & SCALP: normocephalic and atraumatic Resp: COMMON NORMALS: normal respiratory effort, No retractions, No use of accessory muscles and clear to auscultation bilaterally AUSCULTATION: clear to auscultation bilaterally Cardio: COMMON NORMALS: regular rate, regular rhythm and No murmurs present (Cardio) RATE: regular rate RHYTHM: regular rhythm GI: COMMON NORMALS: Soft to palpation and No hepatosplenomegaly present AUSCULTATION: Yes normoactive bowel sounds PALPATION: Yes Soft to palpation, No Tenderness to palpation present (GI), No Guarding due to palpation present (GI) and Yes No hepatosplenomegaly present Extremity: COMMON NORMALS: normal to inspection, capillary refill normal, no clubbing, cyanosis or edema, no calf tenderness and no pedal edema Neuro: SENSORIUM/ORIENTATION: Yes oriented to person, Yes oriented to place and Yes oriented to time Skin: COMMON NORMALS: no rashes or lesions noted GENERAL SKIN EXAM: no rashes or lesions noted Course Vital Signs: Vital signs: Vital Signs Temperature 98.3 F 03/20/23 06:26 Pulse Rate 72 03/20/23 08:50 Respiratory Rate 19 H 03/20/23 08:50 Blood Pressure 132/78 03/20/23 08:50 Pulse Oximetry 97 03/20/23 08:50 Oxygen Delivery Me thod Room Air 03/20/23 08:50 MDM - General Adult Medical Decision Making Retained stool in the colon looks like there may be a little fecalization into the terminal ileum. She not having sign of obstipation at this point. I do think constipation is causing her abdominal pain and cramping. There is no sign of a bladder infection there is some mild pneumonitis at the base of the lungs or other constellation of symptoms are slightly suggestive of COVID we will swab her for COVID and contact her with the results. Medical Records I reviewed the patient's medical records. Lab Data I reviewed the patient's lab results. 03/20/23 07:24 03/20/23 07:24 Laboratory Results WBC 11.26 10^3/uL (3.29-11.43) 03/20/23 07:24 RBC 5.69 10^6/uL (3.85-5.65) H 03/20/23 07:24 Hgb 14.00 g/dL (11.27-16.99) 03/20/23 07:24 Hct 44.1 % (36-47) 03/20/23 07:24 MCV 77.5 fl (85-98) L 03/20/23 07:24 MCH 24.6 pg (27-33) L 03/20/23 07:24 MCHC 31.7 g/dL (30-55) 03/20/23 07:24 RDW 15.8 % (12.1-15.1) H 03/20/23 07:24 Plt Count 523 10^3/cmm (157-399) H 03/20/23 07:24 MPV 10.5 fL (7.4-10.4) H 03/20/23 07:24 Neut % (Auto) 81.6 % 03/20/23 07:24 Lymph % (Auto) 10.5 % 03/20/23 07:24 [place] % (Auto) 5.6 % 03/20/23 07:24 Eos % (Auto) 1.4 % 03/20/23 07:24 Baso % (Auto) 0.6 % 03/20/23 07:24 Neut # (Auto) 9.19 10^3/uL (1.8-7.7) H 03/20/23 07:24 Lymph # (Auto) 1.2 10^3/uL (0.8-4.8) 03/20/23 07:24 [place] # (Auto) 0.6 10^3/uL (0.2-0.9) 03/20/23 07:24 Eos # (Auto) 0.2 10^3/uL (0.0-0.8) 03/20/23 07:24 Baso # (Auto) 0.1 10^3/uL (0.0-0.1) 03/20/23 07:24 Nucleated RBC % (auto) 0 % 03/20/23 07:24 Nucleated RBCs # 0.0 /100WBC 03/20/23 07:24 Sodium 138 mmol/L (136-145) 03/20/23 07:24 Potassium 4.3 mmol/L (3.5-5.1) 03/20/23 07:24 Chloride 105 mmol/L (98-107) 03/20/23 07:24 Carbon Dioxide 26 mmol/L (22-29) 03/20/23 07:24 Anion Gap 11.3 (5-19) 03/20/23 07:24 BUN 10 mg/dL (6-20) 03/20/23 07:24 Creatinine 1.0 mg/dL (0.5-0.9) H 03/20/23 07:24 GFR Calculation 62.4 mL/min (90-130) L 03/20/23 07:24 Glucose 93 mg/dL (65-115) 03/20/23 07:24 Calculated Osmolality 285 mOsm/kg (285-295) 03/20/23 07:24 Calcium 9.4 mg/dL (8.5-10.5) 03/20/23 07:24 Total Bilirubin 0.4 mg/dL (0.15-1.2) 03/20/23 07:24 AST 20 U/L (0-32) 03/20/23 07:24 ALT 25 U/L (0-33) 03/20/23 07:24 Alkaline Phosphatase 108 U/L (35-105) H 03/20/23 07:24 Total Protein 7.0 g/dL (6.6-8.7) 03/20/23 07:24 Albumin 4.3 g/dL (3.5-5.2) 03/20/23 07:24 Globulin 2.7 g/dL (1.3-4.6) 03/20/23 07:24 HCG, Qual Negative (Negative) 03/20/23 07:24 Urine Color Yellow (Yellow) 03/20/23 06:29 Urine Appearance Turbid (CLEAR) A 03/20/23 06:29 Urine pH 5 (5-7) 03/20/23 06:29 Ur Specific [place] 1.020 (1.005-1.030) 03/20/23 06:29 Urine Protein Trace (Negative) 03/20/23 06:29 Urine Glucose (UA) Norm (Normal) 03/20/23 06:29 Urine Ketones Negative (Negative) 03/20/23 06:29 Urine Blood Neg (Negative) 03/20/23 06:29 Urine Nitrate Negative (Negative) 03/20/23 06:29 Urine Bilirubin Neg (Negative) 03/20/23 06:29 Urine Urobilinogen Norm mg/dL (Negative) 03/20/23 06:29 Ur Leukocyte Esterase 1+ (Negative) H 03/20/23 06:29 Urine RBC 0-4 /hpf (0-2) H 03/20/23 06:29 Urine WBC 0-4 /hpf (0-5) H 03/20/23 06:29 Ur Squamous Epith Cells 0-4 /hpf (0-5) H 03/20/23 06:29 Amorphous Sediment Not Reportable 03/20/23 06:29 Urine Bacteria Trace /hpf (NONE) 03/20/23 06:29 All radiology interpretation(s) finalized by discharge Discharge Plan Discharge Patient Disposition: Home Clinical Impression: Pneumonitis, Abdominal pain, Constipation Condition: Stable Prescriptions: No Action No Known Home Medications Discharge Orders: Discharge ED (Routine); Ordered 03/20/23 Ordered By: Remi Severino Patient Instructions: Abdominal Pain (ED), Opioid Safety, Pain Management Coding Level of Care Code ED Blast Setter for George Geiger
[2023-03-20 06:26] VITALS: BP 172/91; PULSE 75; RESP 20; TEMP 36.8; O2SAT 97; BMI 41.2
--- NOTE | 2023-03-20 07:08 | XR_ITS ---
WS: [id number] Portable AP upright chest, 03/20/2023 Clinical Data: dyspnea/cough Comparison: Portable chest, 05/06/2019 Findings: No nodules, masses or effusions are seen. The heart is normal. The pulmonary vascularity is not increased. No pneumonia or pneumothorax is seen. Impression: Negative chest.
[2023-03-20 07:25] VITALS: RESP 18
[2023-03-20] MEDS: ondansetron 2 mg/ML SDV 2 mL 4 MG IVP (07:25)
[2023-03-20] MEDS: morphine 4 mg/mL SDV 1 mL IVP (07:25)
[2023-03-20 07:28] VITALS: PULSE 66; RESP 18; O2SAT 98
[2023-03-20 07:31] LABS: Add Urine Culture? No; Add Urine Microscopic? YES; Bacteria Urine TRACE /hpf; Bilirubin Urine Neg (Negative); Blood Urine Neg (Negative); Glucose Urine UA Norm (Normal); Ketones Urine Negative (Negative); Leukocyte Esterase Urine 1+ (Negative); Nitrate Urine Negative (Negative); Protein Urine Trace (Negative); RBC Urine 0-4 /hpf (0-2); Squamous Epithelial Cell Urine 0-4 /hpf (0-5); Urine Appearance Turbid (CLEAR); Urine Color Yellow (Yellow); Urobilinogen Urine Norm (Negative); WBC Urine 0-4 /hpf (0-5); pH Urine 5 (5-7)
[2023-03-20 07:32] LABS: Basophils # 0.1 10^3/uL (0.0-0.1); Basophils % 0.6 %; Eosinophils # 0.2 10^3/uL (0.0-0.8); Eosinophils % 1.4 %; Hematocrit 44.1 % (36-47); Lymphocytes # 1.2 10^3/uL (0.8-4.8); Lymphocytes % 10.5 %; Mean Corpuscular HGB Conc 31.7 g/dL (30-55); Mean Corpuscular Hemoglobin 24.6 pg (27-33); Mean Corpuscular Volume 77.5 fl (85-98); Mean Platelet Volume 10.5 fL (7.4-10.4); Monocytes # 0.6 10^3/uL (0.2-0.9); Monocytes % 5.6 %; Neutrophils # 9.19 10^3/uL (1.8-7.7); Neutrophils % 81.6 %; Nucleated Red Blood Cells % 0 %; Platelet Count 523 10^3/cmm (157-399); Red Blood Count 5.69 10^6/uL (3.85-5.65); Red Cell Distribution Width 15.8 % (12.1-15.1); White Blood Count 11.26 10^3/uL (3.29-11.43)
--- NOTE | 2023-03-20 07:33 | CT_ITS ---
WS: [id number] CT ABDOMEN AND PELVIS WITH CONTRAST HISTORY: abd pain TECHNIQUE: Imaging performed of the abdomen and pelvis with IV contrast. Single phase imaging of the abdomen. Coronal and sagittal reformats are submitted. All CT scans at [facility] use at [address] one of these dose optimization techniques: automated exposure control; mA and/or kV adjustment per patient size (includes targeted exams where dose is matched to clinical indication); or iterative re construction. IV CONTRAST: Omnipaque 350; 100 mL IV. Oral contrast: No DLP: 959.83 mGy.cm COMPARISON: 12/03/2022 Lower thorax: Scattered subtle opacifications at the lung bases. Mild groundglass attenuation. These changes are new since 12/03/2022. No areas of dense consolidation. Heart is top normal size. No hiatal hernia. Liver/biliary system: Normal size with no intrahepatic dilatation. Normal portal vein. Gallbladder: Cholecystectomy. Pancreas: Normal size pancreas and pancreatic duct. No adjacent inflammation. Spleen: Spleen is moderately enlarged extending over a length of at least 14 cm. Spleen is prominent on prior examinations also. There are numerous varices noted in the LEFT upper abdomen adjacent to th e splenic hilum and stomach. Adrenal glands: Normal. Right kidney: Normal size kidney. No obstruction. Cortical cyst lower pole 1.4 cm. Left kidney: Normal size. Cortical cyst measuring 1.2 cm in the mid kidney. There is a small extraren al pelvis. No obstruction. Aorta: Normal. Lymphadenopathy: None. Free fluid: None. GI tract: Normal appearance of the stomach. No small bowel obstruction. Moderate fecal retention thro ughout the entire colon. Normal appendix. Abdominal wall: Unremarkable abdominal wall. No hernia. Pelvis: No free fluid or adenopathy within the pelvis. Mildly enlarged RIGHT ovary with a small perip herally enhancing follicle. Probably representing a corpus luteum. Bones: Unremarkable. IMPRESSION: 1. No acute abdominal or pelvic abnormalities. 2. Moderate enlargement of the spleen. This has been present on prior examinations. There are also n umerous splenic varicosities noted. 3. Prior cholecystectomy. 4. Bilateral renal cysts. No renal obstruction. 5. Normal appendix. 6. No ascites or adenopathy. 7. Mild hazy attenuation of groundglass attenuation at the lung bases. Correlate for pneumonitis.
[2023-03-20 07:48] LABS: Alanine Aminotransferase 25 U/L (0-33); Albumin Level 4.3 g/dL (3.5-5.2); Alkaline Phosphatase 108 U/L (35-105); Anion Gap 11.3 (5-19); Aspartate Amino Transferase 20 U/L (0-32); Blood Urea Nitrogen 10 mg/dL (6-20); Calcium 9.4 mg/dL (8.5-10.5); Carbon Dioxide 26 mmol/L (22-29); Chloride 105 mmol/L (98-107); Globulin 2.7 g/dL (1.3-4.6); Glomerular Filtration Rate 62.4 mL/min (90-130); Glucose 93 mg/dL (65-115); Osmolality Calculated 285 mOsm/kg (285-295); Potassium 4.3 mmol/L (3.5-5.1); Sodium 138 mmol/L (136-145); Total Bilirubin 0.4 mg/dL (0.15-1.2)
[2023-03-20] MEDS: sodium chloride 0.9% 1,000 ML 999 ML IV (07:53)
[2023-03-20 08:13] LABS: HCG, Serum Qual Negative (Negative)
[2023-03-20] MEDS: iohexol 350 mg/mL 500 mL Btl (per mL) IV (08:28)
[2023-03-20 08:50] VITALS: BP 132/78; PULSE 72; RESP 19; O2SAT 97
[2023-03-20 10:09] VITALS: BP 145/80; PULSE 69; RESP 16; O2SAT 97
[2023-03-20 11:38] LABS: Adenovirus Not Detected (NOT DETECT); Chlamydia Pneumoniae Not Detected (NOT DETECT); Coronavirus 229E,HKU1,NL63,OC4 Not Detected (NOT DETECT); Human Metapneumovirus Not Detected (NOT DETECT); Human Rhinovirus/Enterovirus Detected (NOT DETECT); Influenza A Not Detected (NOT DETECT); Influenza A H1 Not Detected (NOT DETECT); Influenza A H1-2009 Not Detected (NOT DETECT); Influenza A H3 Not Detected (NOT DETECT); Influenza B Not Detected (NOT DETECT); Mycoplasma Pneumoniae Not Detected (NOT DETECT); Parainfluenza Virus Type 1 Not Detected (NOT DETECT); Parainfluenza Virus Type 2 Not Detected (NOT DETECT); Parainfluenza Virus Type 3 Not Detected (NOT DETECT); Parainfluenza Virus Type 4 Not Detected (NOT DETECT); Respiratory Syncytial Virus A Not Detected (NOT DETECT); Respiratory Syncytial Virus B Not Detected (NOT DETECT); SARS-COV-2 Not Detected (NOT DETECT)
[2023-03-20 11:49] LABS: Human Metapneumovirus Not Detected (NOT DETECT); Human Rhinovirus/Enterovirus Detected (NOT DETECT); Results from Genmark
== END 2023-03-20 10:10 | disposition home or self-care (01) ==
PROVIDERS: Emergency Provider Family Medicine
DX: J18.9 Pneumonia, unspecified organism (principal); K59.00 Constipation, unspecified; I25.10 Atherosclerotic heart disease of native coronary artery without angina pectoris; J43.9 Emphysema, unspecified; E78.5 Hyperlipidemia, unspecified; I10 Essential (primary) hypertension; F17.210 Nicotine dependence, cigarettes, uncomplicated; Z20.822 Contact with and (suspected) exposure to COVID-19
CPT/HCPCS: 71045; 74177; 80053; 81001; 84703; 85025; 87635; 87801; 96374; 96375; 99285; J2270; J2405; J7030; Q9967

== ENCOUNTER 2023-10-08 21:02 | Emergency (ER) | payer OTHER, SELFPAY ==
[2023-10-08 21:06] VITALS: BP 179/123; PULSE 90; RESP 18; TEMP 36.6; O2SAT 98
--- NOTE | 2023-10-08 21:22 | ED_ITS ---
HPI - General Adult General: Chief complaint: General Medical Stated complaint: throat swollen allergic reaction sting headache Time Seen by Provider: 10/08/23 21:15 History of Present Illness: 38-year-old female comes in today with a bee sting to the left forearm. Patient reports the sting occurred on Thursday. Patient had picked up the wound today to get the stinger out she reports. After doing that patient reports that her throat felt swollen, she felt like she got a headache, and was concerned she was having a reaction to it. Patient does have some significant redness to the left forearm with a central bruised sting area. Review of Systems General: Reports: 10 or more systems reviewed and unremarkable except in HPI and below PFSH ED PFSH: Medical History History of placement of stent in LAD coronary artery Chronic cystitis Urolithiasis Cystitis cystica Hyperlipidemia Secondary polycythemia Hypertension History of coronary angiogram Coronary artery disease Polycythemia vera Obesity Obstructive sleep apnea Emphysema lung Nocturnal hypoxemia Surgical History S/P ureteral stent placement History of cholecystectomy H/O angioplasty Family History Grandmother Clotting disorder Cancer Dementia Diabetes Grandmother No problems noted. Grandfather Stroke Other Hyperlipidemia Hypertension Social History Smoking and tobacco/nicotine status: current every day tobacco/nicotine user cigarettes Packs smoked per day: 0.5 Years cigarettes smoked: 20 [ Other cigarette details: started at age 15.] Alcohol intake: never Marital status: Current occupational status: employed Physical Exam Const: COMMON NORMALS: alert HENMT: COMMON NORMALS: atraumatic HEAD & SCALP: atraumatic THROAT: posterior oropharynx normal Neck/C-Spine: COMMON NORMALS: full ROM Chest: COMMONS NORMALS: normal inspection of the chest Resp: COMMON NORMALS: normal respiratory effort and clear to auscultation bilaterally AUSCULTATION: clear to auscultation bilaterally Cardio: COMMON NORMALS: regular rate and regular rhythm RATE: regular rate RHYTHM: regular rhythm GI: COMMON NORMALS: Soft to palpation and non-tender PALPATION: Yes Soft to palpation Back/Pelvis: COMMON NORMALS: thoracic and lumbar spine normal to inspection Extremity: LEFT UPPER EXTREMITY: Yes lower arm (Forearm erythema with a centralized lesion) Neuro: SENSORIUM/ORIENTATION: Yes alert Skin: NARRATIVE SKIN EXAM: Redness and tenderness to the forearm with surrounding erythema Course Vital Signs: Vital signs: Vital Signs Temperature 97.8 F 10/08/23 21:06 Pulse Rate 90 10/08/23 21:06 Respiratory Rate 18 10/08/23 21:06 Blood Pressure 195/139 10/08/23 22:05 Pulse Oximetry 98 10/08/23 21:06 Oxygen Delivery Me thod Room Air 10/08/23 21:06 MDM - General Adult Medical Decision Making 38-year-old female comes in today with swelling and tenderness to the left forearm. On exam patient has centralized bee sting that she has picked that has caused some bruising to the lesion. Patient has some mild induration approximately 2 cm surrounded by 12 cm of erythema. Differential diagnosis includes local reaction to insect bite, cellulitis, allergic reaction, anaphylaxis. Patient was given steroid injection, oral antibiotic, clonidine for blood pressure, Benadryl and ketorolac. Patient has chronic high blood pressure and blood pressure was as high as 190 systolic. Patient reports that she has refills for her prescriptions that she needs to order picker/assembler tomorrow. Go ahead and cover patient with antibiotics due to the erythema to her arm and concerns of possible infection due to her patient poking the wound with a needle. Patient will be continued on Augmentin. Patient reports understanding of care plan need for follow-up or return to the ER. No radiology studies performed this visit Discharge Plan Discharge Patient Disposition: Home Clinical Impression: Bite or sting by insect with infection Condition: Stable Prescriptions: New amoxicillin-pot clavulanate 600-42.9 mg/5 mL suspension for reconstitution 7.3 ml PO BID 7 Days Qty: 100 0RF No Action aspirin 81 mg tablet,delayed release (DR/EC) 81 mg PO DAILY Qty: 90 3RF carvedilol 3.125 mg tablet 3.125 mg PO BID Qty: 180 3RF clopidogrel 75 mg tablet 75 mg PO DAILY Qty: 90 3RF furosemide 40 mg tablet 40 mg PO DAILY Qty: 90 3RF pantoprazole 40 mg tablet,delayed release (DR/EC) 40 mg PO DAILY Qty: 90 3RF rosuvastatin 20 mg tablet 20 mg PO DAILY Qty: 90 3RF Discharge Orders: Discharge ED (Routine); Ordered 10/08/23 Ordered By: Guido Pepe Discharge Diet: Usual diet Patient Instructions: Cellulitis (ED) Activity Restrictions/Additional Instructions: Take antibiotics as directed. Drink plenty of water and fluids. Continue with acetaminophen and ibuprofen for pain. Continue with Benadryl 1 to 2 tablets every 4-6 hours as needed for itching or rash. Follow-up with primary care for further instructions. Return to ED for new concerns. Coding Level of Care Code ED Fabrication Inspector for George Geiger
[2023-10-08] MEDS: diphenhydrAMINE 50 mg/mL SDV 1mL IVP (21:48)
[2023-10-08] MEDS: famotidine 20 mg/2 mL INJ 40 MG IVP (21:51)
[2023-10-08] MEDS: dexamethasone 10 mg/mL INJ IVP (21:53)
[2023-10-08] MEDS: ketorolac 30 mg/mL INJ 15 MG IVP (21:55)
[2023-10-08 22:05] VITALS: BP 195/139
[2023-10-08] MEDS: cloNIDine 0.1 mg Tablet 0.100000000000000006 MG PO (22:05)
[2023-10-08] MEDS: amoxicillin-clav 875-125 mg Tablet 1 TAB PO (22:39)
[2023-10-08] MEDS: diphenhydrAMINE 25 mg Capsule 50 MG PO (23:14)
[2023-10-08 23:32] VITALS: BP 118/72; PULSE 90; RESP 18; TEMP 36.6; O2SAT 98
== END 2023-10-08 23:34 | disposition home or self-care (01) ==
PROVIDERS: Emergency Provider Nurse Practitioner Family
DX: T63.441A Toxic effect of venom of bees, accidental (unintentional), initial encounter (principal); L08.9 Local infection of the skin and subcutaneous tissue, unspecified; Z79.02 Long term (current) use of antithrombotics/antiplatelets; Z79.82 Long term (current) use of aspirin; F17.210 Nicotine dependence, cigarettes, uncomplicated; E78.5 Hyperlipidemia, unspecified; I10 Essential (primary) hypertension; I25.10 Atherosclerotic heart disease of native coronary artery without angina pectoris; J43.9 Emphysema, unspecified
CPT/HCPCS: 96374; 96375; 99284; J1100; J1200; J1885; J3490

== ENCOUNTER 2023-10-20 09:49 | Emergency (ER) | payer OTHER, SELFPAY ==
[2023-10-20 09:56] VITALS: BP 130/89; PULSE 75; RESP 20; TEMP 36.6; O2SAT 96
--- NOTE | 2023-10-20 09:59 | W.ED.CHESTPA ---
HPI - Chest Pain General: Chief Complaint: Chest Pain Stated Complaint: chest pains Time Seen by Provider: 10/20/23 09:56 History of Present Illness: 38-year-old female who presents emergency room with complaints of chest discomfort. Is not present at this time it is not reproducible with deep inspiration or cough. She is very nauseated when she first stands and then it goes away. Radiates from the epigastrium up into her chest and then resolves no radiation into the neck back or arms. She has a remote history of a previous heart attack at age 30. Reviewing her chart she did have an LAD stent there is a note from Dr. Rubio that relates she had a coronary artery dissection when I talk to her she described very well a coronary dissection as she understood what it happened and has it was explained to her in [place] when this happened. She has not otherwise had recurrent chest pain recently. She does have a history of reflux and is on pantoprazole. She denies any medic easy melena hematemesis coffee-ground emesis. Associated symptoms: Deny abdominal pain, dyspnea or fever(s) Review of Systems Const: Denies: fever(s) or chills Card: Denies: chest pain Resp: Denies: dyspnea GI: Denies: abdominal pain : Denies: dysuria, urinary frequency or urinary urgency Musc: Denies: neck pain or back pain Skin/Breast: Denies: rash PFSH ED PFSH: Medical History History of placement of stent in LAD coronary artery Chronic cystitis Urolithiasis Cystitis cystica Hyperlipidemia Secondary polycythemia Hypertension History of coronary angiogram Coronary artery disease Cath 07/08/2018 showed normal LM, LCx, RCA and proximal 65% LAD stent restenosis with FFR 0.86. Polycythemia vera Obesity Obstructive sleep apnea Emphysema lung Nocturnal hypoxemia Surgical History S/P ureteral stent placement History of cholecystectomy H/O angioplasty Family History Grandmother Clotting disorder Cancer Dementia Diabetes Grandmother No problems noted. Grandfather Stroke Other Hyperlipidemia Hypertension Social History Smoking and tobacco/nicotine status: current every day tobacco/nicotine user cigarettes Packs smoked per day: 0.5 Years cigarettes smoked: 20 [ Other cigarette details: started at age 15.] Alcohol intake: never Marital status: Current occupational status: employed Physical Exam Const: COMMON NORMALS: no acute distress GENERAL APPEARANCE: cooperative and comfortable ORIENTATION/CONSCIOUSNESS: Yes awake, Yes oriented to person, Yes oriented to place and Yes oriented to time HENMT: COMMON NORMALS: normocephalic, atraumatic and hearing grossly normal bilaterally HEAD & SCALP: normocephalic and atraumatic Resp: COMMON NORMALS: normal respiratory effort, No retractions, No use of accessory muscles and clear to auscultation bilaterally AUSCULTATION: clear to auscultation bilaterally Cardio: COMMON NORMALS: regular rate, regular rhythm and No murmurs present (Cardio) RATE: regular rate RHYTHM: regular rhythm GI: COMMON NORMALS: Soft to palpation and No hepatosplenomegaly present AUSCULTATION: Yes normoactive bowel sounds PALPATION: Yes Soft to palpation, No Tenderness to palpation present (GI), No Guarding due to palpation present (GI) and Yes No hepatosplenomegaly present Extremity: COMMON NORMALS: normal to inspection, capillary refill normal, no clubbing, cyanosis or edema, no calf tenderness and no pedal edema Neuro: SENSORIUM/ORIENTATION: Yes oriented to person, Yes oriented to place and Yes oriented to time Skin: COMMON NORMALS: no rashes or lesions noted GENERAL SKIN EXAM: no rashes or lesions noted Course Vital Signs: Vital signs: Vital Signs Temperature 97.8 F 10/20/23 09:56 Pulse Rate 73 10/20/23 13:13 Respiratory Rate 18 10/20/23 13:13 Blood Pressure 168/97 10/20/23 14:16 Pulse Oximetry 96 10/20/23 13:13 Oxygen Delivery Me thod Room Air 10/20/23 13:13 MDM - Chest Pain Medical Decision Making Labs and imaging reviewed. Patient has no further chest discomfort is very but oddly positional when she stands he gets little bit worse but otherwise is unremarkable. Troponins trending negative EKGs did not show any acute changes. One of the EKGs the computer read said acute LA however it is not significantly changed from EKG from May 2022. There is a Q wave in V1 and 2 with some T wave changes that have been persistent. She has a remote history of a coronary artery dissection. Reviewed the old cardiology notes she had a repeat angiogram in 2019. She was recently seen by her sap data analyst and recommended to have an echocardiogram and a stress test. At this point there is no sign of pneumonia or pneumothorax widening the mediastinum no acute coronary syndrome no evidence of PE. Will discharge her home and have her follow-up with an outpatient Lexiscan sestamibi stress test and then with her sap data analyst. Patient expressed concern about return to the emergency room for chest discomfort. Advised her given her history of having coronary artery dissection at a very young age which is quite unusual at her age and female she should not hesitate at any time in the future if she has chest discomfort to return to the emergency room to have it evaluated. Encouraged to continue to follow with cardiology. Medical Records I reviewed the patient's medical records. Lab Data I reviewed the patient's lab results. 10/20/23 10:49 10/20/23 10:49 Radiology Impressions Chest X-Ray 10/20/23 10:29 IMPRESSION: No acute findings. Laboratory Results WBC 13.42 10^3/uL (3.29-11.43) H 10/20/23 10:49 RBC 6.09 10^6/uL (3.85-5.65) H 10/20/23 10:49 Hgb 15.70 g/dL (11.27-16.99) 10/20/23 10:49 Hct 49.1 % (36-47) H 10/20/23 10:49 MCV 80.6 fl (85-98) L 10/20/23 10:49 MCH 25.8 pg (27-33) L 10/20/23 10:49 MCHC 32.0 g/dL (30-55) 10/20/23 10:49 RDW 14.6 % (12.1-15.1) 10/20/23 10:49 Plt Count 655 10^3/cmm (157-399) H 10/20/23 10:49 MPV 10.9 fL (7.4-10.4) H 10/20/23 10:49 Neut % (Auto) 79.6 % 10/20/23 10:49 Lymph % (Auto) 12.6 % 10/20/23 10:49 [place] % (Auto) 5.2 % 10/20/23 10:49 Eos % (Auto) 1.8 % 10/20/23 10:49 Baso % (Auto) 0.5 % 10/20/23 10:49 Neut # (Auto) 10.68 10^3/uL (1.8-7.7) H 10/20/23 10:49 Lymph # (Auto) 1.7 10^3/uL (0.8-4.8) 10/20/23 10:49 [place] # (Auto) 0.7 10^3/uL (0.2-0.9) 10/20/23 10:49 Eos # (Auto) 0.2 10^3/uL (0.0-0.8) 10/20/23 10:49 Baso # (Auto) 0.1 10^3/uL (0.0-0.1) 10/20/23 10:49 Nucleated RBC % (auto) 0 % 10/20/23 10:49 Nucleated RBCs # 0.0 /100WBC 10/20/23 10:49 Sodium 139 mmol/L (136-145) 10/20/23 10:49 Potassium 4.6 mmol/L (3.5-5.1) 10/20/23 10:49 Chloride 103 mmol/L (98-107) 10/20/23 10:49 Carbon Dioxide 26 mmol/L (22-29) 10/20/23 10:49 Anion Gap 14.6 (5-19) 10/20/23 10:49 BUN 12 mg/dL (6-20) 10/20/23 10:49 Creatinine 0.9 mg/dL (0.5-0.9) 10/20/23 10:49 GFR Calculation 70.5 mL/min (90-130) L 10/20/23 10:49 Glucose 103 mg/dL (65-115) 10/20/23 10:49 Calculated Osmolality 288 mOsm/kg (285-295) 10/20/23 10:49 Calcium 9.1 mg/dL (8.5-10.5) 10/20/23 10:49 Total Bilirubin 0.5 mg/dL (0.15-1.2) 10/20/23 10:49 AST 26 U/L (0-32) 10/20/23 10:49 ALT 32 U/L (0-33) 10/20/23 10:49 Alkaline Phosphatase 122 U/L (35-105) H 10/20/23 10:49 Troponin T Baseline < 6 ng/L (0-10) 10/20/23 10:49 Troponin T 120 Minute 6.65 ng/L (0-10) 10/20/23 12:50 Delta Troponin T 0.77049 ABS# (0-10) 10/20/23 12:50 Total Protein 7.3 g/dL (6.6-8.7) 10/20/23 10:49 Albumin 4.4 g/dL (3.5-5.2) 10/20/23 10:49 Globulin 2.9 g/dL (1.3-4.6) 10/20/23 10:49 All radiology interpretation(s) finalized by discharge Discharge Plan Discharge Patient Disposition: Home Clinical Impression: Atypical chest pain Condition: Stable Prescriptions: No Action aspirin 81 mg tablet,delayed release (DR/EC) 81 mg PO DAILY Qty: 90 3RF carvedilol 3.125 mg tablet 3.125 mg PO BID Qty: 180 3RF clopidogrel 75 mg tablet 75 mg PO DAILY Qty: 90 3RF furosemide 40 mg tablet 40 mg PO DAILY Qty: 90 3RF pantoprazole 40 mg tablet,delayed release (DR/EC) 40 mg PO DAILY Qty: 90 3RF rosuvastatin 20 mg tablet 20 mg PO DAILY Qty: 90 3RF Discharge Orders: Discharge ED (Routine); Ordered 10/20/23 Ordered By: Remi Severino Referrals: Trupti Peace DO [Primary Care Provider] - Patient Instructions: Opioid Safety, Pain Management Activity Restrictions/Additional Instructions: Thank you for choosing [facility] for your healthcare needs today. Please realize this is an emergency room and that we are providing you with a medical screening exam and this may not be complete and all inclusive of all the testing and or work up that you may need to determine your ailment or severity of your illness. It is very important that you follow up as instructed or that you return to the Emergency Department should you have concerns or if your condition changes or worsens in any way. You were seen today for chest discomfort. Your cardiac enzymes and EKG were unremarkable. Your EKG showed no changes from EKG done in May 2022. Your cardiac enzymes were normal. Chest x-ray was unremarkable. There is no evidence of pneumothorax or widening mediastinum. There was no evidence of pulmonary embolism based on her clinical exam and presentation. Will set you up for an outpatient Lexiscan sestamibi stress test and follow-up with your sap data analyst. Increase her pantoprazole to 40 mg twice a day continue all of your other medications as previously prescribed Coding Level of Care Code ED Director Of Teaching And Learning for George Geiger
--- NOTE | 2023-10-20 10:29 | XRR_ITS ---
PROCEDURE INFORMATION: Exam: XR Chest Exam date and time: 10/20/2023 11:29 AM Age: 38 years old Clinical indication: Cough and dyspnea; Additional info: Dyspnea/cough TECHNIQUE: Imaging protocol: Radiologic exam of the chest. Views: 1 view. Total images: 660 COMPARISON: CR XR chest 1V portable [id number] 03/20/2023 7:29 AM FINDINGS: Lungs: Unremarkable. No consolidation. Pleural spaces: Unremarkable. No pleural effusion. No pneumothorax. Heart/Mediastinum: Unremarkable. No cardiomegaly. Bones/joints: Unremarkable. XR/XR chest 1V portable [id number] IMPRESSION: No acute findings.
--- NOTE | 2023-10-20 10:29 | ECG_ITS ---
[facility] Test Date: 2023-10-20 Pat Name: Trupti Berry Department: Room: Gender: Female Stonemason Supervisor: : 1985 Requested By: Remi Chappell Order Number: [id number] Lorna MD: Pavel Muse M.D. Measurements Intervals [place] Rate: 81 P: 40 NE: 161 QRS: 67 QRSD: 90 T: 91 QT: 375 QTc: 435 Interpretive Statements SINUS RHYTHM SEPTAL MYOCARDIAL INFARCTION , OF INDETERMINATE AGE [40+ ms Q WAVE IN V1/V2] No previous ECG available for comparison Electronically Signed On 10-20-2023 17:18:23 CDT by Pavel Muse M.D. [id number] f
[2023-10-20 10:55] LABS: Basophils # 0.1 10^3/uL (0.0-0.1); Basophils % 0.5 %; Eosinophils # 0.2 10^3/uL (0.0-0.8); Eosinophils % 1.8 %; Hematocrit 49.1 % (36-47); Lymphocytes # 1.7 10^3/uL (0.8-4.8); Lymphocytes % 12.6 %; Mean Corpuscular Hemoglobin 25.8 pg (27-33); Mean Corpuscular Volume 80.6 fl (85-98); Mean Platelet Volume 10.9 fL (7.4-10.4); Monocytes # 0.7 10^3/uL (0.2-0.9); Monocytes % 5.2 %; Neutrophils # 10.68 10^3/uL (1.8-7.7); Neutrophils % 79.6 %; Nucleated Red Blood Cells % 0 %; Platelet Count 655 10^3/cmm (157-399); Red Blood Count 6.09 10^6/uL (3.85-5.65); Red Cell Distribution Width 14.6 % (12.1-15.1); White Blood Count 13.42 10^3/uL (3.29-11.43)
[2023-10-20 11:16] LABS: Troponin(5th) Baseline < 6 ng/L (0-10)
[2023-10-20 11:19] LABS: Alanine Aminotransferase 32 U/L (0-33); Albumin Level 4.4 g/dL (3.5-5.2); Alkaline Phosphatase 122 U/L (35-105); Anion Gap 14.6 (5-19); Aspartate Amino Transferase 26 U/L (0-32); Blood Urea Nitrogen 12 mg/dL (6-20); Calcium 9.1 mg/dL (8.5-10.5); Carbon Dioxide 26 mmol/L (22-29); Chloride 103 mmol/L (98-107); Creatinine Clr Calc Pharmacy 106.2652; Globulin 2.9 g/dL (1.3-4.6); Glomerular Filtration Rate 70.5 mL/min (90-130); Glucose 103 mg/dL (65-115); Osmolality Calculated 288 mOsm/kg (285-295); Potassium 4.6 mmol/L (3.5-5.1); Sodium 139 mmol/L (136-145); Total Bilirubin 0.5 mg/dL (0.15-1.2); Total Protein 7.3 g/dL (6.6-8.7)
--- NOTE | 2023-10-20 12:50 | ECG_ITS ---
[facility] Test Date: 2023-10-20 Pat Name: Trupti Berry Department: Room: Gender: Female Manager Unix: : 1985 Requested By: Remi Chappell Order Number: [id number] Lorna MD: Pavel Muse M.D. Measurements Intervals [place] Rate: 61 P: 18 CT: 169 QRS: 19 QRSD: 93 T: 79 QT: 448 QTc: 454 Interpretive Statements SINUS RHYTHM WITH SINUS ARRHYTHMIA MINIMAL VOLTAGE CRITERIA FOR LVH, CONSIDER NORMAL VARIANT [MEETS CRITERIA IN ONE OF: R(aVL), S(V1), R(V5), R(V5/V6)+S(V1)] SEPTAL MYOCARDIAL INFARCTION AGE INDETERMINATE Compared to ECG 10/20/2023 09:53:32 No significant changes Electronically Signed On 10-20-2023 17:23:21 CDT by Pavel Muse M.D. [id number]
[2023-10-20 13:10] LABS: Troponin 5 2HR 6.65 ng/L (0-10); Troponin 5 2HR Delta 0.65001 ABS# (0-10)
[2023-10-20 13:13] VITALS: BP 153/94; PULSE 73; RESP 18; O2SAT 96
[2023-10-20 14:16] VITALS: BP 168/97
--- NOTE | 2023-10-21 07:29 | DCPLANNER ---
message was sent to cardio for er f/u
== END 2023-10-20 14:17 | disposition home or self-care (01) ==
PROVIDERS: Emergency Provider Family Medicine; PCP Family Medicine
DX: R07.89 Other chest pain (principal); Z79.02 Long term (current) use of antithrombotics/antiplatelets; Z79.82 Long term (current) use of aspirin; E78.5 Hyperlipidemia, unspecified; I10 Essential (primary) hypertension; J43.9 Emphysema, unspecified; I25.10 Atherosclerotic heart disease of native coronary artery without angina pectoris; F17.210 Nicotine dependence, cigarettes, uncomplicated
CPT/HCPCS: 36415; 71045; 80053; 84484; 85025; 93005; 99285

== ENCOUNTER → 2024-05-23 11:15 | Outpatient (BNVA) | payer OTHER, SELFPAY | PROVIDERS: PCP Family Medicine | DX: E66.9 Obesity, unspecified (principal); N39.3 Stress incontinence (female) (male) | CPT/HCPCS: 80053; 81000; 84439; 84443; 84481 ==

== ENCOUNTER → 2024-06-24 11:27 | Outpatient (BNVA) | payer OTHER, SELFPAY | DX: N39.3 Stress incontinence (female) (male) (principal); N39.0 Urinary tract infection, site not specified | CPT/HCPCS: 81000; 87077; 87086; 87184 ==

== ENCOUNTER 2024-07-04 00:38 | Emergency (ER) | payer OTHER, SELFPAY ==
[2024-07-04] VITALS (15 sets, daily range): BP systolic 124–159; BP diastolic 83–109; PULSE 62–96; RESP 14–25; TEMP 36.8; O2SAT 94–98; BMI 39.9
[2024-07-04] MEDS: ondansetron 2 mg/ML SDV 2 mL 8 MG IVP (01:42)
[2024-07-04 01:58] LABS: Basophils % 0.3 %; Eosinophils # 0.1 10^3/uL (0.0-0.8); Hematocrit 49.8 % (36-47); Lymphocytes # 0.5 10^3/uL (0.8-4.8); Lymphocytes % 3.9 %; Mean Corpuscular HGB Conc 33.3 g/dL (30-55); Mean Corpuscular Hemoglobin 27.9 pg (27-33); Mean Corpuscular Volume 83.8 fl (85-98); Mean Platelet Volume 10.3 fL (7.4-10.4); Monocytes # 0.6 10^3/uL (0.2-0.9); Monocytes % 4.2 %; Neutrophils # 12.35 10^3/uL (1.8-7.7); Neutrophils % 90.3 %; Nucleated Red Blood Cells % 0 %; Platelet Count 659 10^3/cmm (157-399); Red Blood Count 5.94 10^6/uL (3.85-5.65); White Blood Count 13.69 10^3/uL (3.29-11.43)
--- NOTE | 2024-07-04 02:07 | CTR_ITS ---
PROCEDURE INFORMATION: Exam: CT Abdomen And Pelvis With Contrast Exam date and time: 07/04/2024 2:43 AM Age: 39 years old Clinical indication: Nausea and vomiting; Abdominal pain; Prior surgery; Surgery date: 6+ months; Surgery type: Gb; Patient HX: Bilat flank pain with n/v. Elevated wbc. ; Additional info: B flank and abd pain TECHNIQUE: Imaging protocol: Computed tomography of the abdomen and pelvis with contrast. Radiation optimization: All CT scans at this facility use at least one of these dose optimization techniques: automated exposure control; mA and/or kV adjustment per patient size (includes targeted exams where dose is matched to clinical indication); or iterative reconstruction. Contrast material: OMNI 350; Contrast volume: 100 ml; Contrast route: INTRAVENOUS (IV); COMPARISON: CT abdomen pelvis w con* [id number] 03/20/2023 8:25 AM RADIATION DOSE METRICS: Total DLP (mGy-cm): 1024.43 FINDINGS: Liver: Unremarkable. Gallbladder and biliary ducts: Cholecystectomy. Pancreas: Normal. No ductal dilation. Spleen: Splenomegaly. Adrenal glands: Unremarkable. Kidneys and ureters: Bilateral simple cortical renal cysts. Stomach and bowel: Unremarkable. No obstruction. No mucosal thickening. Appendix: Unremarkable. Intraperitoneal space: No free air or free fluid. Vasculature: Unremarkable. Lymph nodes: Unremarkable. Urinary bladder: Decompressed bladder. Reproductive: Unremarkable as visualized. Bones/joints: Unremarkable. No acute fracture. Soft tissues: Unremarkable. CT/CT abdomen pelvis w con* [id number] IMPRESSION: No acute abdominopelvic abnormality. COMMENTS: Consistent with the [place] [employer]'s Incidental Findings Committee white paper (J Am Madiha Radiol 2018): Any incidental renal lesion less than 1 cm or classified as too small to characterize, or any incidental cystic renal lesion characterized as simple-appearing, is likely benign. No follow-up imaging is recommended for these lesions per consensus recommendations based on imaging criteria.
[2024-07-04 02:08] LABS: Add Urine Microscopic? NO; Urine Color Yellow (Yellow)
[2024-07-04 02:09] LABS: Add Urine Culture? No; Bacteria Urine 1+ /hpf; Calcium Oxalate Crystals Urine 0-4 /hpf; RBC Urine 0-4 /hpf (0-2); Urine Appearance Slightly Cloudy (CLEAR)
[2024-07-04 02:11] LABS: Charge for UA Resulting for Rev
[2024-07-04 02:14] LABS: HCG, Serum Qual Negative (Negative)
--- NOTE | 2024-07-04 02:15 | W.ED.ABDPA2 ---
HPI - Abdominal Pain General: Chief Complaint: Abdominal Pain Stated Complaint: ABD Pain\Vomiting Time Seen by Provider: 07/04/24 01:58 History of Present Illness: 39-year-old female with a history of be recurrent urinary tract infection. She presents with vomiting, diarrhea, dysuria, and abdominal pain. Symptoms started today. She has vomited several times. She notes pain to her generalized upper abdomen, and back. No fever. Related Data Previous Rx's Medication Instructions Recorded epinephrine 0.3 mg/0.3 mL 0.3 mg (0.3 mL) IM ONCE PRN 11/04/23 injection, auto-injector hypersensitivity reaction #2 ea mupirocin 2 % topical ointment 1 applic topical TID 7 days #15 04/12/24 grams carvedilol 3.125 mg tablet 3.125 mg PO BID #180 tabs 05/02/24 clopidogrel 75 mg tablet 75 mg PO DAILY #90 tabs 05/02/24 furosemide 40 mg tablet 40 mg PO DAILY Water build up over 05/02/24 heart #90 tabs pantoprazole 40 mg tablet,delayed 40 mg PO DAILY Acid reflux #90 tabs 05/02/24 release rosuvastatin 20 mg tablet 20 mg PO DAILY #90 tabs 05/02/24 aspirin 81 mg tablet,delayed 81 mg PO DAILY #90 tabs 05/05/24 release exenatide 5 mcg/dose (250 5 mcg (0.02 mL) SUBCUT BID #1.2 mL 05/24/24 mcg/mL)1.2 mL subcutaneous pen injector (Byliliana) ciprofloxacin HCl 500 mg tablet 500 mg PO BID #14 tabs 06/24/24 (Cipro) oxybutynin chloride 5 mg tablet 5 mg PO DAILY #30 tabs 06/24/24 ondansetron 4 mg disintegrating 4 mg PO Q6H PRN nausea and 07/04/24 tablet vomiting #14 tabs Allergies Allergy/AdvReac Type Severity Reaction Status Date / Time bee venom protein (honey bee) Allergy ALGY-Hives Verified 07/04/24 01:08 [facility] ED PFSH: Medical History (Updated 07/04/24 @ 03:32 by Cruz Durán, ) Abscess of left thigh Stress incontinence History of placement of stent in LAD coronary artery Chronic cystitis Urolithiasis Cystitis cystica Hyperlipidemia Secondary polycythemia Hypertension History of coronary angiogram Coronary artery disease Cath 07/08/2018 showed normal LM, LCx, RCA and proximal 65% LAD stent restenosis with FFR 0.86. Polycythemia vera Obesity Obstructive sleep apnea Emphysema lung Nocturnal hypoxemia Surgical History S/P ureteral stent placement History of cholecystectomy H/O angioplasty Family History Grandmother Clotting disorder Cancer Dementia Diabetes Grandmother No problems noted. Grandfather Stroke Other Hyperlipidemia Hypertension Social History Smoking and tobacco/nicotine status: current every day tobacco/nicotine user cigarettes Packs smoked per day: 0.5 Years cigarettes smoked: 20 [ Other cigarette details: started at age 15.] Alcohol intake: never Marital status: Current occupational status: employed Physical Exam Const: GENERAL APPEARANCE: cooperative and ill appearing (Mildly); not frail appearing HENMT: COMMON NORMALS: normocephalic, atraumatic and Normal external nose present HEAD & SCALP: normocephalic and atraumatic FACE & SINUS: normal facial exam and face symmetric NOSE: Normal external nose present Eye: COMMON NORMALS: Equal, round and reactive pupils present and EOMs intact bilaterally PUPIL: Yes Equal, round and reactive pupils present Neck/C-Spine: GENERAL: Yes trachea midline Chest: CHEST: Yes Symmetrical chest wall rise Resp: COMMON NORMALS: normal respiratory effort, No retractions, No use of accessory muscles and clear to auscultation bilaterally AUSCULTATION: clear to auscultation bilaterally Cardio: COMMON NORMALS: regular rate and regular rhythm RATE: regular rate RHYTHM: regular rhythm GI: COMMON NORMALS: Normal to inspection, nondistended, normoactive bowel sounds present OTHER: Tender diffusely on palpation Extremity: COMMON NORMALS: no pedal edema Neuro: CAIN COMA SCALE: document GCS findings Cain coma scale eye opening: Spontaneous Cain coma scale verbal response: Orientated Cain coma scale motor response: Obey commands Cain coma scale total score: 15 SENSORY EXAM: Yes extremities (intact) Psych: COMMON NORMALS: speech normal SPEECH: Yes normal speech Course Vital Signs: Vital signs: Vital Signs Temperature 98.2 F 07/04/24 01:03 Pulse Rate 65 07/04/24 04:00 Respiratory Rate 22 H 07/04/24 04:37 Blood Pressure 159/103 07/04/24 04:00 Pulse Oximetry 98 07/04/24 04:37 Oxygen Delivery Me thod Room Air 07/04/24 01:03 MDM - Abdominal Pain Medical Decision Making Patient improved after pain medication and antiemetic as well as some fluid here. She was initially tachycardic. Creatinine is 1. White blood cell count is 13.7, but CRP is only 3. Urinalysis does not reveal urinary tract infection. CT shows no acute changes. She will be allowed discharge. Symptomatic treatment. Outpatient follow-up. Lab Data 07/04/24 01:38 07/04/24 01:38 Labs/Radiology: Radiology Impressions Abdomen/Pelvis CT 07/04/24 02:07 IMPRESSION: No acute abdominopelvic abnormality. COMMENTS: Consistent with the [place] [employer]'s Incidental Findings Committee white paper (J Am Madiha Radiol 2018): Any incidental renal lesion less than 1 cm or classified as too small to characterize, or any incidental cystic renal lesion characterized as simple-appearing, is likely benign. No follow-up imaging is recommended for these lesions per consensus recommendations based on imaging criteria. Laboratory Results WBC 13.69 10^3/uL (3.29-11.43) H 07/04/24 01:38 RBC 5.94 10^6/uL (3.85-5.65) H 07/04/24 01:38 Hgb 16.60 g/dL (11.27-16.99) 07/04/24 01:38 Hct 49.8 % (36-47) H 07/04/24 01:38 MCV 83.8 fl (85-98) L 07/04/24 01:38 MCH 27.9 pg (27-33) 07/04/24 01:38 MCHC 33.3 g/dL (30-55) 07/04/24 01:38 RDW 15.0 % (12.1-15.1) 07/04/24 01:38 Plt Count 659 10^3/cmm (157-399) H 07/04/24 01:38 MPV 10.3 fL (7.4-10.4) 07/04/24 01:38 Neut % (Auto) 90.3 % 07/04/24 01:38 Lymph % (Auto) 3.9 % 07/04/24 01:38 [place] % (Auto) 4.2 % 07/04/24 01:38 Eos % (Auto) 1.0 % 07/04/24 01:38 Baso % (Auto) 0.3 % 07/04/24 01:38 Neut # (Auto) 12.35 10^3/uL (1.8-7.7) H 07/04/24 01:38 Lymph # (Auto) 0.5 10^3/uL (0.8-4.8) L 07/04/24 01:38 [place] # (Auto) 0.6 10^3/uL (0.2-0.9) 07/04/24 01:38 Eos # (Auto) 0.1 10^3/uL (0.0-0.8) 07/04/24 01:38 Baso # (Auto) 0.0 10^3/uL (0.0-0.1) 07/04/24 01:38 Nucleated RBC % (auto) 0 % 07/04/24 01:38 Nucleated RBCs # 0.0 /100WBC 07/04/24 01:38 Sodium 138 mmol/L (136-145) 07/04/24 01:38 Potassium 3.8 mmol/L (3.5-5.1) 07/04/24 01:38 Chloride 102 mmol/L (98-107) 07/04/24 01:38 Carbon Dioxide 27 mmol/L (22-29) 07/04/24 01:38 Anion Gap 12.8 (5-19) 07/04/24 01:38 BUN 11 mg/dL (6-20) 07/04/24 01:38 Creatinine 1.0 mg/dL (0.5-0.9) H 07/04/24 01:38 GFR Calculation 62.1 mL/min (90-130) L 07/04/24 01:38 Glucose 128 mg/dL (65-115) H 07/04/24 01:38 Calculated Osmolality 287 mOsm/kg (285-295) 07/04/24 01:38 Lactic Acid 1.3 mmol/L (0.5-2.2) 07/04/24 01:38 Calcium 9.7 mg/dL (8.5-10.5) 07/04/24 01:38 Total Bilirubin 0.7 mg/dL (0.15-1.2) 07/04/24 01:38 AST 31 U/L (0-32) 07/04/24 01:38 ALT 35 U/L (0-33) H 07/04/24 01:38 Alkaline Phosphatase 128 U/L (35-105) H 07/04/24 01:38 C-Reactive Protein 3.0 mg/L (0.0-4.9) 07/04/24 01:38 Total Protein 7.4 g/dL (6.6-8.7) 07/04/24 01:38 Albumin 4.4 g/dL (3.5-5.2) 07/04/24 01:38 Globulin 3.0 g/dL (1.3-4.6) 07/04/24 01:38 Lipase 42 U/L (13-60) 07/04/24 01:38 HCG, Qual Negative (Negative) 07/04/24 01:38 Urine Color Yellow (Yellow) 07/04/24 01:48 Urine Appearance Slightly cloudy (CLEAR) 07/04/24 01:48 Urine pH Not Reportable 07/04/24 01:48 Ur Specific [place] Not Reportable 07/04/24 01:48 Urine Protein Not Reportable 07/04/24 01:48 Urine Glucose (UA) Not Reportable 07/04/24 01:48 Urine Ketones Not Reportable 07/04/24 01:48 Urine Blood Not Reportable 07/04/24 01:48 Urine Nitrate Not Reportable 07/04/24 01:48 Urine Bilirubin Not Reportable 07/04/24 01:48 Urine Urobilinogen Not Reportable 07/04/24 01:48 Ur Leukocyte Esterase Not Reportable 07/04/24 01:48 Urine RBC 0-4 /hpf (0-2) H 07/04/24 01:48 Urine WBC 5-10 /hpf (0-5) H 07/04/24 01:48 Ur Squamous Epith Cells 10-15 /hpf (0-5) H 07/04/24 01:48 Calcium Oxalate Crystal 0-4 /hpf H 07/04/24 01:48 Amorphous Sediment Not Reportable 07/04/24 01:48 Urine Bacteria 1+ /hpf (NONE) H 07/04/24 01:48 All radiology interpretation(s) finalized by discharge Discharge Plan Discharge Patient Disposition: Home Clinical Impression: Abdominal pain, Gastroenteritis Condition: Stable Prescriptions: New ondansetron 4 mg tablet,disintegrating 4 mg PO Q6H PRN (Reason: nausea and vomiting) Qty: 14 0RF No Action epinephrine 0.3 mg/0.3 mL auto-injector 0.3 mg IM ONCE PRN (Reason: hypersensitivity reaction) Qty: 2 3RF oxybutynin chloride 5 mg tablet 5 mg PO DAILY Qty: 30 0RF ciprofloxacin HCl [Cipro] 500 mg tablet 500 mg PO BID Qty: 14 0RF mupirocin 2 % ointment 1 applic topical TID 7 Days Qty: 15 0RF carvedilol 3.125 mg tablet 3.125 mg PO BID Qty: 180 3RF clopidogrel 75 mg tablet 75 mg PO DAILY Qty: 90 3RF furosemide 40 mg tablet 40 mg PO DAILY Qty: 90 3RF pantoprazole 40 mg tablet,delayed release (DR/EC) 40 mg PO DAILY Qty: 90 3RF rosuvastatin 20 mg tablet 20 mg PO DAILY Qty: 90 3RF aspirin 81 mg tablet,delayed release (DR/EC) 81 mg PO DAILY Qty: 90 3RF [place] 5 mcg/dose (250 mcg/mL) 1.2 mL pen injector 5 mcg SUBCUT BID Qty: 1.2 0RF Discharge Orders: Discharge ED (Routine); Ordered 07/04/24 Ordered By: Cruz Durán Referrals: Guillermina Lenz NP [Primary Care Provider] - 1-3 days Patient Instructions: Abdominal Pain (ED), Opioid Safety, Pain Management Activity Restrictions/Additional Instructions: Follow a liquid diet for the next 12 hours, if no vomiting, you may increase as tolerated. Take nausea medication on a scheduled basis every 4 hours while awake for the first 24 hours, then you may take as needed. Return for worsening pain, worsening vomiting despite treatment, other concerning symptoms. See your doctor this week. Stand Alone Forms: Work/School Release Coding Level of Care Code ED Scheduling Clerk for George Geiger
[2024-07-04 02:18] LABS: Lactic Sepsis W/Reflex 1.3 mmol/L (0.5-2.2)
[2024-07-04 02:19] LABS: Alanine Aminotransferase 35 U/L (0-33); Albumin Level 4.4 g/dL (3.5-5.2); Alkaline Phosphatase 128 U/L (35-105); Anion Gap 12.8 (5-19); Aspartate Amino Transferase 31 U/L (0-32); Blood Urea Nitrogen 11 mg/dL (6-20); Calcium 9.7 mg/dL (8.5-10.5); Carbon Dioxide 27 mmol/L (22-29); Chloride 102 mmol/L (98-107); Creatinine Clr Calc Pharmacy 93.6177; Glomerular Filtration Rate 62.1 mL/min (90-130); Glucose 128 mg/dL (65-115); Lipase 42 U/L (13-60); Osmolality Calculated 287 mOsm/kg (285-295); Potassium 3.8 mmol/L (3.5-5.1); Sodium 138 mmol/L (136-145); Total Bilirubin 0.7 mg/dL (0.15-1.2); Total Protein 7.4 g/dL (6.6-8.7)
[2024-07-04] MEDS: iohexol 350 mg/mL 500 mL Btl (per mL) IV (02:46)
[2024-07-04] MEDS: ketorolac 30 mg/mL INJ IVP (02:53)
[2024-07-04] MEDS: morphine 4 mg/mL SDV 1 mL IVP (02:54)
[2024-07-04] MEDS: sodium chloride 0.9% 1,000 ML 999 ML IV (02:56)
[2024-07-04] MEDS: ondansetron 2 mg/ML SDV 2 mL 4 MG IVP (03:17)
[2024-07-04] MEDS: oxyCODONE-APAP 5-325 mg Tablet 2 TAB PO (04:37)
--- NOTE | 2024-07-04 04:42 | PC.NURSE ---
Patient's uncle at bedside to transport her home. Patient educated not to drive after taking pain medication, patient verbalizes understanding.
== END 2024-07-04 04:43 | disposition home or self-care (01) ==
PROVIDERS: Emergency Provider Emergency Medicine
DX: R10.9 Unspecified abdominal pain (principal); K52.9 Noninfective gastroenteritis and colitis, unspecified; Z79.82 Long term (current) use of aspirin; F17.210 Nicotine dependence, cigarettes, uncomplicated; E78.5 Hyperlipidemia, unspecified; I10 Essential (primary) hypertension; I25.10 Atherosclerotic heart disease of native coronary artery without angina pectoris
CPT/HCPCS: 74177; 80053; 81003; 83605; 83690; 84703; 85025; 86140; 96374; 96375; 96376; 99285; J1885; J2270; J2405; J7030

== ENCOUNTER → 2024-07-07 09:34 | Outpatient (BNVA) | payer OTHER, SELFPAY | DX: R74.01 Elevation of levels of liver transaminase levels (principal); R10.9 Unspecified abdominal pain | CPT/HCPCS: 80053; 85025; 86695; 86696; 86705; 86706; 86709; 86803; 87340; 87806 ==

== ENCOUNTER → 2024-07-18 14:24 | Outpatient (BNVA) | payer OTHER, SELFPAY | DX: R74.01 Elevation of levels of liver transaminase levels (principal) | CPT/HCPCS: 81025 ==

== ENCOUNTER 2024-07-28 16:36 | Emergency (ER) | payer OTHER, SELFPAY ==
--- NOTE | 2024-07-28 16:39 | ECG_ITS ---
[facility]24[facility]28 Pat Name: Trupti Berry Department: Room: Gender: Female Project Coordinator: : 1985 Requested By: Astrid Paris Order Number: [id number] Lorna MD: Pavel Muse M.D. Measurements Intervals [place] Rate: 82 P: 40 IL: 163 QRS: 66 QRSD: 93 T: 70 QT: 353 QTc: 414 Interpretive Statements SINUS RHYTHM SEPTAL MYOCARDIAL INFARCTION , OF INDETERMINATE AGE [40+ ms Q WAVE IN V1/V2] POSSIBLE LATERAL MYOCARDIAL INFARCTION , OF INDETERMINATE AGE [30 ms Q WAVE IN I/aVL/V5/V6] Compared to ECG 10/20/2023 12:50:33 Sinus arrhythmia no longer present Myocardial infarct finding still present Electronically Signed On 07-28-2024 21:48:24 DIE MECHANIC by Pavel Muse M.D. [id number] [id number]
[2024-07-28 16:43] VITALS: BP 166/109; PULSE 85; RESP 18; TEMP 36.6; O2SAT 95; BMI 39.6
[2024-07-28 18:36] LABS: Covid PCR NEGATIVE (Negative); Influenza A NEGATIVE (Negative); Influenza B NEGATIVE (Negative); Respiratory Syncytial Virus Ce NEGATIVE (Negative)
== END 2024-07-28 17:00 | disposition left against medical advice (07) ==
PROVIDERS: Emergency Medicine; Emergency Provider Family Medicine
DX: Z53.21 Procedure and treatment not carried out due to patient leaving prior to being seen by health care provider (principal)
CPT/HCPCS: 87637; 93005

== ENCOUNTER → 2024-08-03 15:02 | Outpatient (BNVA) | payer OTHER, SELFPAY | DX: N39.0 Urinary tract infection, site not specified (principal) | CPT/HCPCS: 81000; 87077; 87086; 87184 ==

== ENCOUNTER → 2024-08-18 10:08 | Outpatient (BNVA) | payer OTHER, SELFPAY | PROVIDERS: Visit Provider Family Medicine | DX: N30.20 Other chronic cystitis without hematuria (principal) | CPT/HCPCS: 87086 ==

== ENCOUNTER 2024-08-22 08:15 | Outpatient (CLI) | payer OTHER, SELFPAY ==
--- NOTE | 2024-08-22 08:15 | US_ITS ---
WS: [id number] RIGHT UPPER QUADRANT ULTRASOUND HISTORY: abdominal pain, elevated liver enzymes COMPARISON: CT 07/04/2024 Liver: 14.9 cm in length. Normal size liver and echogenicity. No bile duct dilatation or mass. Portal Vein: Normal hepatopetal flow with monophasic waveform. Gallbladder: Prior cholecystectomy. CBD: 0.3 cm Pancreas: Partially visualized. Distal body and tail are not included and completely described by bowel gas. Right kidney: 11.3 cm in length. Normal size kidney. The lower pole the RIGHT kidney is not included in the previously described cyst has not been imaged. Aorta and IVC: Unremarkable abdominal aorta and IVC. No ascites. US/US abdomen limited [id number] IMPRESSION: 1. Prior cholecystectomy. 2. No hepatobiliary dilatation. 3. No RIGHT renal obstruction. 4. Normal size liver.
== END 2024-08-22 08:16 | disposition home or self-care (01) ==
LOC: RAD 08:16
DX: R74.01 Elevation of levels of liver transaminase levels (principal); Z90.49 Acquired absence of other specified parts of digestive tract
CPT/HCPCS: 76705

== ENCOUNTER 2024-10-06 06:45 | Day surgery (SDC) | payer OTHER, SELFPAY ==
--- NOTE | 2024-10-06 06:58 | W.PM.OPSUD ---
Surgery/Procedure H&P Update DATE OF PROCEDURE: October 06, 2024 DATE H&P PERFORMED: 09/30/24 H&P UPDATE INFORMATION: I have reviewed H&P completed within last 30 days, I have examined patient prior to procedure, No changes to prior documentation, Changes to prior documentation as noted here and Risks and benefits of the procedure reviewed PLANNED PROCEDURE: Operation Date: 10/06/24 07:55 Proposed Procedures p EGD(Not Applicable) - Thor Hsieh MD
[2024-10-06 07:18] VITALS: BP 142/105; PULSE 67; RESP 16; TEMP 36.2; O2SAT 96; BMI 40.7
--- NOTE | 2024-10-06 07:29 | P.ANESASSM_ITS ---
Pre-Anesthetic Assessment Height/Weight: Height 1.65 m Weight 111.13 kg Temp Pulse Resp BP Pulse Ox O2 Del Method 97.1 F L 67 16 142/105 96 Room Air 10/06/24 07:18 10/06/24 07:18 10/06/24 07:18 10/06/24 07:18 10/06/24 07:18 10/06/24 07:18 Preop Diagnosis: GERD Operation Date: 10/06/24 07:55 Proposed Procedures p EGD(Not Applicable) - Thor Hsieh MD Familial anesthetic complications: none Was Beta Darin taken within 24 hours: Yes Last intake: Intake Last Liquid Date 10/05/24 Last Liquid Time 19:00 Last Solid Date 10/05/24 Last Solid Time 19:00 Social Tobacco (trying to quit) and No alcohol Airway Submandibular: within normal limits Cervical ROM: within normal limits Mallampati: Class I Comments: Comments: no teeth present on top Pulmonary Sleep Apnea (non-compliant with cpap) CV/HEM Coronary Artery Disease 2015 @ age of 30, LAD stent, patient states 45% functioning heart Cardiac history extensively reviewed with Dr. Elder we are in agreement that it is reasonable to proceed with the EGD today given the patients clinical symptoms. She denies cardiac symptoms at this time. Patient educated on following up with cardiology and [facility] financial assistance programs. None reported Hepatic elevated liver enzymes per patient with ultrasound (normal US) GI Gastroesophageal Reflux Disease Metabolic Hyperlipidemia and Morbid Obesity [facility] None reported Neuropsych Anxiety Anesthetic Plan ASA status: 3 Anesthesia: MAC Medications/Allergies Home Medications ?Medication ?Instructions ?Recorded ?Confirmed ?Last Taken ?Type epinephrine 0.3 mg/0.3 mL 0.3 mg (0.3 mL) IM ONCE PRN 11/04/23 10/06/24 Unknown Rx injection, auto-injector hypersensitivity reaction #2 ea carvedilol 3.125 mg tablet 3.125 mg PO BID #180 tabs 1 07/02/23 10/06/24 10/05/24 Rx clopidogrel 75 mg tablet 75 mg PO DAILY #90 tabs 04/2210/06/24 10/02/24 Rx furosemide 40 mg tablet 40 mg PO DAILY Water build u p over 05/02/24 10/06/24 10/04/24 Rx heart #90 tabs rosuvastatin 20 mg tablet 20 mg PO DAILY #90 tabs 04/2210/06/24 10/05/24 Rx aspirin 81 mg tablet,delayed 81 mg PO DAILY #90 tabs 1 07/05/23 10/06/24 10/02/24 Rx release cyclobenzaprine 10 mg tablet 10 mg PO TID #30 tabs 10/06/24 Unknown Rx omeprazole 20 mg capsule,delayed 20 mg PO BID #60 caps 07/07/24 10/06/24 10/05/24 Rx release hydroxyzine HCl 25 mg tablet 25 mg PO TID #30 tabs 10/06/24 10/05/24 Rx losartan 25 mg tablet 25 mg PO DAILY #90 tabs 09/2010/06/24 10/05/24 Rx propranolol 10 mg tablet 10 mg PO TID PRN anxiety #90 tabs 09/30/24 10/06/24 10/05/24 Rx Allergies Allergy/AdvReac Type Severity Reaction Status Date / Time adhesive tape Allergy welps Verified 10/06/24 07:06 bee venom protein (honey bee) Allergy ALGY-Hives Verified 10/06/24 07:06 [facility] Anesthesia Medical History Anxiety GERD (gastroesophageal reflux disease) Stress incontinence History of placement of stent in LAD coronary artery Chronic cystitis Urolithiasis Cystitis cystica Hyperlipidemia Secondary polycythemia Hypertension History of coronary angiogram Coronary artery disease Cath 07/08/2018 showed normal LM, LCx, RCA and proximal 65% LAD stent restenosis with FFR 0.86. Polycythemia vera Obesity Obstructive sleep apnea Emphysema lung Nocturnal hypoxemia Surgical History History of coronary artery stent placement LAD S/P ureteral stent placement now removed; done for stones History of cholecystectomy Family History Grandmother Clotting disorder Cancer Dementia Diabetes Grandmother No problems noted. Grandfather Stroke Other Hyperlipidemia Hypertension Social History Smoking and tobacco/nicotine status: current every day tobacco/nicotine user cigarettes Packs smoked per day: 0.5 Years cigarettes smoked: 20 [ Other cigarette details: started at age 15; she just quit4.7.25] Alcohol intake: never Substance/Drug Use: never Household members: other Details: step son Marital status: Number of children: 0 Highest education level completed: Bachelor's Degree Current occupational status: employed Previous occupational history: [employer] Data Anesthesia Cardiac Studies: No Data to Display
[2024-10-06] MEDS: sodium chloride 0.9% 250 ML 30 ML IV (07:30)
[2024-10-06 07:31] LABS: OR HCG Qualitative Urine Negative (Negative)
[2024-10-06 08:11] VITALS: BP 114/60; PULSE 61; RESP 18; TEMP 36.2; O2SAT 96
[2024-10-06 08:21] VITALS: BP 114/71; PULSE 55; RESP 16; TEMP 36.2; O2SAT 96
--- NOTE | 2024-10-06 12:50 | ANE.PACU2 ---
Inpatient post-anesthesia follow up: Airway intact: Yes Vital signs: Temperature 97.1 F Pulse Rate 55 Respiratory Rate 16 Blood Pressure 114/71 Pulse Oximetry 96 Oxygen Delivery Me thod Room Air Oxygen Flow Rate Fraction of Inspir ed Oxygen Hydration adequate: Yes Nausea and vomiting: No Pain level: 2 Mental status: Baseline
== END 2024-10-06 08:36 | disposition home or self-care (01) ==
PROVIDERS: Anesthesiology; Visit Provider Surgery
PROC: 0DJ08ZZ Inspection of Upper Intestinal Tract, Via Natural or Artificial Opening Endoscopic (ICD-10-PCS; principal; 2024-10-06 07:55)
DX: K29.50 Unspecified chronic gastritis without bleeding (principal); K29.00 Acute gastritis without bleeding; K21.00 Gastro-esophageal reflux disease with esophagitis, without bleeding; G47.33 Obstructive sleep apnea (adult) (pediatric); Z91.199 Patient's noncompliance with other medical treatment and regimen due to unspecified reason; I25.10 Atherosclerotic heart disease of native coronary artery without angina pectoris; Z95.5 Presence of coronary angioplasty implant and graft; E78.5 Hyperlipidemia, unspecified; F17.210 Nicotine dependence, cigarettes, uncomplicated; E66.01 Morbid (severe) obesity due to excess calories; Z68.41 Body mass index [BMI] 40.0-44.9, adult; Z79.899 Other long term (current) drug therapy; Z79.02 Long term (current) use of antithrombotics/antiplatelets; Z91.09 Other allergy status, other than to drugs and biological substances; D45 Polycythemia vera
CPT/HCPCS: 43239; 81025; 88305; 88342; J2704; J3010; J7050; J9999

== ENCOUNTER → 2025-01-02 14:48 | Outpatient (BNVA) | payer OTHER, SELFPAY | DX: I10 Essential (primary) hypertension (principal) | CPT/HCPCS: 80053; 83036; 84443 ==

== ENCOUNTER → 2025-06-06 10:11 | Outpatient (BNVA) | payer OTHER, SELFPAY | DX: R05.9 Cough, unspecified (principal) | CPT/HCPCS: 87400; 87426 ==